=== PATIENT | female | born 1950 | race Caucasian/White ===

== ENCOUNTER 2023-06-13 09:19 | Outpatient (OUT) | payer MEDICARE, SELFPAY ==
--- NOTE | 2023-06-13 09:22 | MM_ITS ---
Patient Name: BINDU OROPEZA MR#: [id number] : 1950 Exam Date: 06/13/2023 Ordering Doctor: DR LUCIAN SY RADIOLOGY REPORT PROCEDURE: MM TOMOSYNTHESIS SCREENING BI COMPARISON: MG MAMM RICCI SCRN W CAD DIG, 12/31/2007. MG MAMM SCREEN 3D RICCI CAD, 04/02/2021. INDICATIONS: Screening Calculator Name NCI Breast Cancer Risk Assessment Tool 5 Year Breast Cancer Risk 2.20% Lifetime Breast Cancer Risk 5.60% Personal Breast Cancer No Personal Ovarian Cancer No Treatments None Family Cancers Mother with unknown/pelvis cancer at age 42. LOCATION: [facility] BREAST COMPOSITION: Scattered areas fibroglandular density. FINDINGS: DIAGNOSTIC CATEGORY 2--BENIGN FINDING. NO CHANGE FROM COMPARISON. Scattered benign-appearing calcifications are present. Scattered benign-appearing lymph nodes are present. RIGHT BREAST: No significant suspicious finding. Stable round lytic lesion with some surrounding density lower inner quadrant, mid breast. Possibly an oil cyst LEFT BREAST: No significant suspicious finding. RECOMMENDATIONS: ROUTINE MAMMOGRAM AND CLINICAL EVALUATION IN 12 MONTHS. PLEASE NOTE: A NORMAL MAMMOGRAM DOES NOT EXCLUDE THE POSSIBILITY OF BREAST CANCER. A CLINICALLY SUSPICIOUS PALPABLE LUMP SHOULD BE BIOPSIED. Dictated by: Phi Aguilar MD on 06/13/2023 at 11:07 Approved by: Phi Aguilar MD on 06/13/2023 at 11:13
== END 2023-06-13 09:20 | disposition home or self-care (01) ==
LOC: MAMMO 09:19
PROVIDERS: PCP Internal Medicine; Visit Provider Physician Assistant
DX: Z12.31 Encounter for screening mammogram for malignant neoplasm of breast (principal); Z80.8 Family history of malignant neoplasm of other organs or systems
CPT/HCPCS: 77063; 77067

== ENCOUNTER 2024-07-12 08:21 | Outpatient (OUT) | payer MEDICARE, SELFPAY ==
--- NOTE | 2024-07-12 08:23 | MM_ITS ---
Patient Name: BINDU OROPEZA MR#: [id number] : 1950 Exam Date: 07/12/2024 Ordering Doctor: DR JACQUELIN MEYER M.D. RADIOLOGY REPORT PROCEDURE: MM TOMOSYNTHESIS SCREENING BI COMPARISON: MM TOMOSYNTHESIS SCREENING BI, 06/13/2023. MG MAMM SCREEN 3D RICCI CAD, 04/02/2021. MG MAMM RICCI SCRN W CAD DIG, 12/31/2007. INDICATIONS: Screening Calculator Name NCI Breast Cancer Risk Assessment Tool 5 Year Breast Cancer Risk 2.20% Lifetime Breast Cancer Risk 5.30% Personal Breast Cancer No Personal Ovarian Cancer No Treatments None Family Cancers Mother with unknown/pelvis cancer at age 42. LOCATION: [facility] BREAST COMPOSITION: There are scattered areas of fibroglandular density. FINDINGS: DIAGNOSTIC CATEGORY 1--NEGATIVE. RIGHT BREAST: No significant suspicious finding. LEFT BREAST: No significant suspicious finding. RECOMMENDATIONS: ROUTINE MAMMOGRAM AND CLINICAL EVALUATION IN 12 MONTHS. PLEASE NOTE: A NORMAL MAMMOGRAM DOES NOT EXCLUDE THE POSSIBILITY OF BREAST CANCER. A CLINICALLY SUSPICIOUS PALPABLE LUMP SHOULD BE BIOPSIED. Dictated by: Bradley Gannon DO on 07/12/2024 at 16:22 Approved by: Bradley Gannon DO on 07/12/2024 at 16:24
--- OUTSIDE RECORDS SUMMARY | 2024-07-12 08:31 | XMS_ITS | CCD ---
Author Organization [facility] Care Team Providers Care Expediter Name Role Phone BELINDA, DR DELVIS Abrams Attending Unavailable BELINDA, DR DELVIS Abrams Admitting Unavailable BETSY, DR ROPER Primary Care Unavailable GABRIEL, VANESSA Consulting Unavailable BELINDA, DR DELVIS Abrams Attending Unavailable BELINDA, DR DELVIS Abrams Admitting Unavailable HARVEY, VANESSA Consulting Unavailable BETSY, DR ROPER Primary Care Unavailable BELINDA, DR DELVIS Abrams Admitting Unavailable BELINDA, DR DELVIS Abrams Attending Unavailable BETSY, DR ROPER Primary Care Unavailable BETSY, DR ROPER Consulting Unavailable BELINDA, DR DELVIS Abrams Consulting Unavailable LAWSON VERNON Consulting Unavailable BELINDA, DR DELVIS Abrams Attending Unavailable BELINDA, DR DELVIS Abrams Admitting Unavailable BETSY, DR ROPER Primary Care Unavailable GABRIEL, VANESSA Consulting Unavailable BELINDA, DR DELVIS Abrams Attending Unavailable GABRIEL, VANESSA Consulting Unavailable BELINDA, DR DELVIS Abrams Admitting Unavailable BETSY, DR ROPER Primary Care Unavailable BELINDA, DR DELVIS Abrams Attending Unavailable BETSY, DR ROPER Primary Care Unavailable BELINDA, DR DELVIS Abrams Admitting Unavailable GABRIEL, VANESSA Consulting Unavailable BELINDA, DR DELVIS Abrams Attending Unavailable BELINDA, DR DELVIS Abrams Admitting Unavailable BELINDA, DR DELVIS Abrams Consulting Unavailable BETSY, DR ROPER Primary Care Unavailable BELINDA, DR DELVIS Abrams Attending Unavailable BELINDA, DR DELVIS Abrams Admitting Unavailable BETSY, DR ROPER Primary Care Unavailable GABRIEL, VANESSA Consulting Unavailable BELINDA, DR DELVIS Abrams Attending Unavailable BELINDA, DR DELVIS Abrams Admitting Unavailable BETSY, DR ROPER Primary Care Unavailable BELINDA, DR DELVIS Abrams Attending Unavailable BETSY, DR ROPER Primary Care Unavailable BETSY, DR ROPER Admitting Unavailable ZIMIKI, DR GORDON Almeida Consulting Unavailable BELINDA, DR DELVIS Abrams Consulting Unavailable BELINDA, DR DELVIS Abrams Admitting Unavailable BELINDA, DR DELVIS Abrams Consulting Unavailable BELINDA, DR DELVIS Abrams Attending Unavailable BETSY, DR ROPER Primary Care Unavailable BELINDA, DR DELVIS Abrams Attending Unavailable BELINDA, DR DELVIS Abrams Admitting Unavailable BELINDA, DR DELVIS Abrams Consulting Unavailable DR CHAVO BENAVIDES Primary Care Unavailable BELINDA, DR DELVIS Abrams Admitting Unavailable BELINDA, DR DELVIS Abrams Consulting Unavailable BELINDA, DR DELVIS Abrams Attending Unavailable BETSY, DR ROPER Primary Care Unavailable Chavo Benavides MD Primary Care Provider NICOLE GONZALEZ Attending Unavailable RANI OTTO Attending Unavailable CHRISTO CHEW Attending Unavailable CHRISTO CHEW Referring Unavailable RANI OTTO Attending Unavailable RANI OTTO Attending Unavailable RANI OTTO Attending Unavailable RANI OTTO Attending Unavailable RANI OTTO Attending Unavailable CHAVO BENAVIDES Attending Unavailable CAYETANO HAJI Attending Unavailable CHAVO BENAVIDES Attending Unavailable RANI OTTO Attending Unavailable Allergies Allergy Classification Reported Allergen(s) Allergy Type Date of Onset Reaction(s) Facility (7 sources) benazepril Drug Allergy 07-01-2023 Cough [facility] Work Phone: Medications Current Medications Medication Drug Class(es) Dates Sig (Normalized) Sig (Original) [id number] 200 actuat albuterol 0.09 mg/actuat metered dose inhaler (8 sources) beta2-Adrenergic Agonist Start: 05-27-2022 take 1 puff(s) by inhalation every four hours albuterol HFA 90 mcg/act inhaler Inhale 1 puff every 4 (four) hours. 05/27/2022 Active ALPRAZolam 1 mg oral tablet (10 sources) Benzodiazepine Start: 08-12-2023 End: 03-01-2024 take 0.5 tablet by mouth in the morning ALPRAZolam (Xanax) 1 MG tablet Indications: Adjustment disorder with mixed anxiety and depressed mood (CMS/HCC) Take 0.5 tablets (0.5 mg) by mouth in the morning and 0.5 tablets (0.5 mg) before bedtime. 30 tablet 3 03/01/2024 Active Start: 10-24-2022 take 0.5 tablet by m outh in the morning ALPRAZolam (Xanax) 1 MG tablet Indications: Adjustment disorder with mixed anxiety and depressed mood (CMS/HCC) Take 0.5 tablets (0.5 mg) by mouth in the morning and 0.5 tablets (0.5 mg) before bedtime. 30 tablet 3 10/24/2022 Active amLODIPine 10 mg oral tablet (7 sources) Dihydropyridine Calcium Channel Bailey Start: 10-27-2023 End: 10-26-2024 take 1 tablet by mouth once daily amLODIPine (Norvasc) 10 MG tablet Indications: Essential hypertension (CMS/HCC) Take 1 tablet (10 mg) by mouth Daily 90 tablet 3 10/27/2023 10/26/2024 Active amLODIPine 5 mg / benazepril hydrochloride 20 mg oral capsule (1 source) Dihydropyridine Calcium Channel Bailey, Angiotensin Converting Enzyme Inhibitor take 1 capsule by mouth in the morning amLODIPine-benaze pril (Lotrel) 5-20 MG capsule Take 1 capsule by mouth in the morning. 0 Active baclofen 10 mg oral tablet (9 sources) gamma-Aminobutyric Acid-ergic Agonist Start: 12-16-2023 take 1 tablet by mouth three times daily baclofen (Lioresal) 10 MG tablet Indications: Other chronic pain TAKE 1 TABLET BY MOUTH THREE TIMES DAILY 90 tablet 2 12/16/2023 Active Start: 09-24-2022 take 1 tablet by marie three times daily baclofen (Lioresal) 10 MG tablet Indications: Other chronic pain TAKE 1 TABLET BY MOUTH THREE TIMES DAILY 90 tablet 2 10/02/2022 Active black cohosh extract 540 mg oral capsule (9 sources) Black Cohosh 540 MG capsule Take by mouth. Active Black Cohosh 80 MG capsule Daily. 0 Active Black Cohosh 540 MG capsule Take by mouth. 0 Active chlorhexidine gluconate 1.2 mg/ml mouthwash (7 sources) Start: 07-29-2023 take 15 mL by mouth in the morning chlorhexidine (Peridex) 0.12 % solution Use 15 mL in the mouth or throat in the morning and 15 mL before bedtime. 07/29/2023 Active diphenhydrAMINE hydrochloride 25 mg oral capsule (8 sources) Histamine-1 Receptor Antagonist take 1 capsule by mouth every eight hours as needed diphenhydrAMINE (Allergy) 25 MG capsule Take 25 mg by mouth every 8 (eight) hours if needed for allergies. Active DULoxetine 30 mg delayed release oral capsule (8 sources) Serotonin and Norepinephrine Reuptake Inhibitor Start: 03-08-2024 take 1 capsule by mouth once daily DULoxetine (Cymbalta) [address] capsule Indications: Adjustment disorder with mixed anxiety and depressed mood (CMS/HCC) TAKE 1 CAPSULE BY MOUTH DAILY 100 capsule 2 03/08/2024 Active Start: 06-20-2023 take 1 capsule by mo uth once daily DULoxetine (Cymbalta) [address] capsule Indications: Adjustment disorder with mixed anxiety and depressed mood (CMS/HCC) Take 1 capsule (30 mg) by mouth Daily 100 capsule 2 06/20/2023 Active take 1 capsule by mo uth in the morning DULoxetine (Cymbalta) [address] capsule Take 30 mg by mouth in the morning. 0 Active estradiol 0.1 mg/ml vaginal cream (7 sources) Estrogen Start: 06-19-2023 estradiol (Est race) 0.1 MG/GM vaginal cream Indications: Vulvovaginal Atrophy Insert 1 gram twice weekly 42.5 g 5 06/19/2023 Active gabapentin 300 mg oral capsule (8 sources) Anti-epileptic Agent Start: 12-17-2023 take 1 capsule by mouth twice daily gabapentin (Neurontin) 300 MG capsule Indications: Other chronic pain TAKE 1 CAPSULE BY MOUTH TWICE DAILY 60 capsule 5 12/17/2023 Active Start: 03-19-2023 take 1 capsule by mo uth twice daily gabapentin (Neurontin) 300 MG capsule Indications: Other chronic pain TAKE 1 CAPSULE BY MOUTH TWICE DAILY 60 capsule 5 03/19/2023 Active hydroCHLOROthiazide 12.5 mg oral tablet (10 sources) Thiazide Diuretic Start: 12-08-2023 take 1 tablet by mouth in the morning hydroCHLOROthiazide (HYDRODiuril) 12.5 MG tablet Indications: Essential hypertension (CMS/HCC) TAKE 1 TABLET BY MOUTH IN THE MORNING 100 tablet 3 12/08/2023 Active Start: 10-27-2023 End: 03-01-2024 take 1 tablet by mouth once daily in the morning hydroCHLOROthiazide (HYDRODiuril) 25 MG tablet Indications: Essential hypertension (CMS/HCC) Take 1 tablet (25 mg) by mouth Daily Take in the morning 90 tablet 3 10/27/2023 03/01/2024 Discontinued (Dose adjustment) ketoconazole 20 mg/ml medicated shampoo (1 source) Azole Antifungal Start: 04-16-2022 ketoconazole (NIZOral) 2 % shampoo Apply topically 2 (two) times a week. 0 04/16/2022 Active loperamide hydrochloride 2 mg oral capsule (8 sources) Opioid Agonist take 1 capsule by mouth four times daily as needed for diarrhea loperamide (Imodium) 2 MG capsule Take 2 mg by mouth 4 (four) times a day as needed for diarrhea. Active melatonin 10 mg oral capsule (8 sources) take 1 capsule by mouth at bedtime Melatonin 10 MG capsule Take 10 mg by mouth at bedtime. Active meloxicam 15 mg oral tablet (8 sources) Nonsteroidal Anti-inflammatory Drug Start: 06-07-2024 take 1 tablet by mouth once daily meloxicam (Mobic) 15 MG tablet Indications: Acute low back pain, unspecified back pain laterality, unspecified whether sciatica present TAKE 1 TABLET BY MOUTH DAILY 100 tablet 3 06/07/2024 Active Start: 06-18-2023 take 1 tablet by marie th once daily meloxicam (Mobic) 15 MG tablet Indications: Acute low back pain, unspecified back pain laterality, unspecified whether sciatica present TAKE 1 TABLET BY MOUTH DAILY 100 tablet 3 06/18/2023 Active take 1 tablet by marie th in the morning meloxicam (Mobic) 15 MG tablet Take 15 mg by mouth in the morning. 0 Active olmesartan medoxomil 20 mg oral tablet (7 sources) Angiotensin 2 Receptor Bailey Start: 10-27-2023 End: 10-26-2024 take 1 tablet by mouth once daily olmesartan (BENIcar) 20 MG tablet Indications: Essential hypertension (CMS/HCC) Take 1 tablet (20 mg) by mouth Daily 90 tablet 3 10/27/2023 10/26/2024 Active omeprazole 40 mg delayed release oral capsule (8 sources) Proton Pump Inhibitor Start: 10-27-2023 End: 10-26-2024 take 1 capsule by mouth before mealtime omeprazole (PriLOSEC) [address] capsule Indications: Gastro-esophageal reflux disease without esophagitis Take 1 capsule (40 mg) by mouth in the morning. Take before meals. Do not crush or chew.. 90 capsule 3 10/27/2023 10/26/2024 Active Start: 09-24-2022 omeprazole (Pr iLOSEC) [address] capsule Indications: Gastro-esophageal reflux disease without esophagitis TAKE 1 CAPSULE BY MOUTH 30 mins BEFORE morning meal 90 capsule 3 09/24/2022 Active simvastatin 40 mg oral tablet (8 sources) HMG-CoA Reductase Inhibitor Start: 12-08-2023 take 1 tablet by mouth once daily simvastatin (Zocor) 40 MG tablet Indications: Mixed hyperlipidemia (CMS/HCC) TAKE 1 TABLET BY MOUTH DAILY 100 tablet 3 12/08/2023 Active Start: 12-24-2022 take 1 tablet by marie th once daily simvastatin (Zocor) 40 MG tablet Indications: Mixed hyperlipidemia (CMS/HCC) TAKE 1 TABLET BY MOUTH ONCE DAILY 90 tablet 3 12/24/2022 Active zolpidem tartrate 10 mg oral tablet (10 sources) gamma-Aminobutyric Acid-ergic Agonist Start: 06-07-2024 zolpidem (Ambien) 10 MG tablet Indications: Insomnia, unspecified Take 1 tablet (10 mg) by mouth as needed at bedtime for sleep 30 tablet 5 06/07/2024 Active Start: 11-18-2023 End: 06-07-2024 zolpidem (Ambien) 10 MG tabl et Indications: Insomnia, unspecified Take 1 tablet (10 mg) by mouth as needed at bedtime for sleep 30 tablet 5 11/18/2023 06/07/2024 Discontinued (Reorder) Start: 10-24-2022 End: 05-22-2023 take 1 tablet by mouth at bedtime as needed zolpidem (Ambien) 10 MG tablet Indications: Insomnia, unspecified TAKE 1 TABLET BY MOUTH AT BEDTIME NEEDED 30 tablet 5 05/22/2023 Active Problems Active Problems Problem Classification Problem Date Documented Da te Episodic/Chronic Adjustment disorders (10 sources) Adjustment disorder with mixed anxiety and depressed mood; Translations: [Adjustment disorder with mixed anxiety and depressed mood] Onset: 9 09-24-2022 Chronic Anxiety disorders (8 sources) Generalized anxiety disorder; Translations: [Generalized anxiety disorder] Onset: 3 09-24-2022 Chronic Asthma (8 sources) Mixed asthma; Translations: [Unspecified asthma, uncomplicated] Onset: 3 09-24-2022 Chronic Disorders of lipid metabolism (10 sources) Mixed hyperlipidemia; Translations: [Mixed hyperlipidemia] Onset: 3 09-24-2022 Chronic Esophageal disorders (8 sources) Gastroesophageal reflux disease without esophagitis; Translations: [Gastro-esophageal reflux disease without esophagitis] Onset: 3 09-24-2022 Chronic Essential hypertension (10 sources) Essential hypertension; Translations: [Essential (primary) hypertension] Onset: 3 09-24-2022 Chronic Osteoarthritis (13 sources) Osteoarthritis of joint of left elbow; Translations: [Primary osteoarthritis, left elbow] Onset: 3 09-24-2022 Chronic Other acquired deformities (5 sources) Scoliosis, unspecified; Translations: [SCOLIOSIS UNSPECIFIED] Onset: 2 Chronic Other acquired deformities (8 sources) Contracture of joint of right ankle; Translations: [Contracture, right ankle] Onset: 3 09-24-2022 Chronic Other acquired deformities (8 sources) Scoliosis deformity of spine; Translations: [Scoliosis, unspecified] Onset: 3 09-24-2022 Chronic Other eye disorders (4 sources) Lower eyelid ectropion; Translations: [Unspecified ectropion of right lower eyelid] 03-01-2024 Episodic Other gastrointestinal disorders (8 sources) Irritable bowel syndrome with diarrhea; Translations: [Irritable bowel syndrome with diarrhea] Onset: 3 09-24-2022 Chronic Other hereditary and degenerative nervous system conditions (8 sources) Restless legs; Translations: [Restless legs syndrome] Onset: 3 09-24-2022 Chronic Other inflammatory condition of skin (8 sources) Psoriasis vulgaris; Translations: [Psoriasis vulgaris] Onset: 3 09-24-2022 Chronic Other nervous system disorders (1 source) Chronic pain syndrome; Translations: [CHRONIC PAIN SYNDROME] Onset: 2 Chronic Other nervous system disorders (1 source) Other chronic pain; Translations: [OTHER CHRONIC PAIN] Onset: 2 Chronic Other nervous system disorders (8 sources) Difficulty walking; Translations: [Difficulty in walking, not elsewhere classified] Onset: 3 09-24-2022 Chronic Other nervous system disorders (8 sources) Chronic pain; Translations: [Other chronic pain] Onset: 3 09-24-2022 Chronic Other nervous system disorders (8 sources) Carpal tunnel syndrome; Translations: [Carpal tunnel syndrome, unspecified upper limb] Onset: 3 09-24-2022 Chronic Other non-traumatic joint disorders (2 sources) Pain in left knee; Translations: [Pain in joint, lower leg] 03-23-2024 Episodic Residual codes; unclassified (10 sources) Insomnia; Translations: [Insomnia, unspecified] Onset: 3 05-22-2023 Episodic Spondylosis; intervertebral disc disorders; other back problems (20 sources) Sacroiliitis, not elsewhere classified; Translations: [Other spondylosis with radiculopathy, lumbar region] Onset: 2 Chronic Unclassified (4 sources) LOW BACK PAIN, UNSPECIFIED; Translations: [LOW BACK PAIN, UNSPECIFIED] Onset: 2 Unclassified (1 source) CONTACT W/AND (SUSP) EXPOS COVID-19; Translations: [CONTACT W/AND (SUSP) EXPOS COVID-19] Onset: 2 Past or Other Problems Problem Classification Problem Date Documented Da te Episodic/Chronic Inflammatory diseases of female pelvic organs (8 sources) Chronic vaginitis; Translations: [Subacute and chronic vaginitis] Onset: 09-24-2022 09-24-2022 Episodic Other bone disease and musculoskeletal deformities (8 sources) Osteopenia; Translations: [Other specified disorders of bone density and structure, unspecified site] Onset: 09-24-2022 09-24-2022 Episodic Other connective tissue disease (1 source) Other muscle spasm; Translations: [OTHER MUSCLE SPASM] Onset: 07-24-2021 Episodic Other connective tissue disease (8 sources) Triggering of digit; Translations: [Trigger finger, left ring finger] Onset: 09-24-2022 09-24-2022 Episodic Other nervous system disorders (8 sources) Paresthesia; Translations: [Paresthesia of skin] Onset: 09-24-2022 09-24-2022 Episodic Other nutritional; endocrine; and metabolic disorders (8 sources) Body mass index 30+ - obesity; Translations: [Obesity, unspecified] Onset: 09-24-2022 Resolved: 10-24-2022 10-24-2022 Chronic Other screening for suspected conditions (not mental disorders or infectious disease) (8 sources) Mammography abnormal; Translations: [Other abnormal and inconclusive findings on diagnostic imaging of breast] Onset: 09-24-2022 09-24-2022 Episodic Other skin disorders (8 sources) Multiple actinic keratoses; Translations: [Actinic keratosis] Onset: 09-24-2022 09-24-2022 Episodic Residual codes; unclassified (1 source) Other specified postprocedural states; Translations: [OTH SPECIFIED POSTPROCEDURAL STATES] Onset: 06-13-2021 Episodic Spondylosis; intervertebral disc disorders; other back problems (20 sources) Muscle spasm of back; Translations: [Sacrococcygeal disorders, not elsewhere classified] Onset: 06-12-2021 Episodic Unclassified (1 source) LOW BACK PAIN, UNSPECIFIED; Translations: [LOW BACK PAIN, UNSPECIFIED] Onset: 03-28-2022 Viral infection (8 sources) Recurrent herpes simplex labialis; Translations: [Herpesviral vesicular dermatitis] Onset: 09-24-2022 09-24-2022 Episodic Results Test Name Value Interpretation Reference Range Facil ity Covid-19 PCR ([facility])on 10-13 SARS-CoV-2 (COVID-19) RNA SHERYL+probe Ql (Unsp spec) Not detected Normal NOT DETECTED [facility] Comment on above: Result Comment: This test is not yet andrew roved or cleared by the [place] FDA. When there are no FDA-approved or cleared tests available, and other criteria are met, FDA can make tests available under an emergency access mechanism called an Emergency Use Authorization (EUA). The EUA for this test is supported by the [employer] Inspector of Health and Human Service's (HHS's) declaration that circumstances exist to justify the emergency use of in vitro diagnostics for the detection and/or diagnosis of the virus that causes COVID-19. This EUA will remain in effect (meaning this test can be used) for the duration of the COVID-19 declaration justifying emergency of IVDs, unless it is terminated or revoked by FDA (after which the test may no longer be used). When diagnostic testing is negative, the possibility of a false negative should be considered in the context of a patient's recent exposures and the presence of clinical signs and symptoms consistent with SARS-CoV-2. Performed By: #### C [facility] #### [facility] [address] [place] [address] Dr. Hubert Jean XR LSPINE W_OBLS AND FLEX_EX Ton 06-12-2021 XR LSPINE W_OBLS AND FLEX_EXT EXAMINATION: XR LSPINE W_OBLS AND FLEX_EXT HISTORY: Spinal stenosis of lumbar region COMPARISON: XR lumbar spine 05/20/2018 FINDINGS: BONES: Marked scoliotic curvature of the lumbar spine with multilevel grade 1-2 lateral listhesis. No appreciable compression fracture. Multilevel marked degenerative facet arthropathy. DISC SPACES: Marked degenerative disc disease at all lumbar levels. PARASPINOUS: Negative. No paraspinous abnormality is seen. OTHER: Negative. IMPRESSION: 1. Marked scoliosis and multilevel marked degenerative changes of the lumbar spine; slightly progressed. No appreciable acute abnormality.. Electronically authenticated by: GORDON GUTIERREZ Date: 2021-06-12 15:26 Normal [facility] Vital Signs Date Time Vital Sign Value Performing Clinician Faci lity 03-23-2024 13:40-0500 Body height 162.6 cm Rani Hemmer PA Work Phone: [facility] 03-23-2024 13:40-0500 Body mass index (BMI) [Ratio] 27.46 kg/m2 Rani Hemmer PA Work Phone: [facility] 03-23-2024 13:40-0500 Body weight 72.58 kg Rani Hemmer PA Work Phone: [facility] 03-23-2024 13:40-0500 Diastolic blood pressure 74 mm[Hg] Rani Hemmer PA Work Phone: [facility] 03-23-2024 13:40-0500 Heart rate 75 /min Rani Hemmer PA Work Phone: [facility] 03-23-2024 13:40-0500 Respiratory rate 16 /min Rani Hemmer PA Work Phone: [facility] 03-23-2024 13:40-0500 SaO2% (BldA) [Mass fraction] 98 % Rani Hemmer PA Work Phone: [facility] 03-23-2024 13:40-0500 Systolic blood pressure 136 mm[Hg] Rani Hemmer PA Work Phone: [facility] 03-01-2024 11:07-0500 Body height 162.6 cm Chavo Benavides MD Work Phone: [facility] 03-01-2024 11:07-0500 Body mass index (BMI) [Ratio] 27.64 kg/m2 Chavo Benavides MD Work Phone: [facility] 03-01-2024 11:07-0500 Body weight 73.03 kg Chavo Benavides MD Work Phone: [facility] 03-01-2024 11:07-0500 Diastolic blood pressure 84 mm[Hg] Chavo Benavides MD Work Phone: [facility] 03-01-2024 11:07-0500 Heart rate 86 /min Chavo Benavides MD Work Phone: [facility] 03-01-2024 11:07-0500 SaO2% (BldA) [Mass fraction] 96 % Chavo Benavides MD Work Phone: [facility] 03-01-2024 11:07-0500 Systolic blood pressure 132 mm[Hg] Chavo Benavides MD Work Phone: [facility] Encounters Encounter Date Encounter Type Care Provider Facility Start: 06-07-2024 End: 06-07-2024 Refill Chavo Benavides MD Work Phone: [facility] Comment on above: Insomnia, unspecifie d Start: 03-23-2024 End: 03-23-2024 Bamboo flowsheet Rani Otto PA Work Phone: [facility] Start: 03-23-2024 End: 03-23-2024 Bamboo flowsheet Rani SY Work Phone: [facility] Start: 03-23-2024 End: 03-23-2024 Office outpatient visit 15 minutes Rani SY Work Phone: [facility] Comment on above: Primary 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 (Primary Dx); Acute pain of left knee Start: 03-23-2024 End: 03-23-2024 ambulatory RANI M HEMMER Not Available Start: 03-01-2024 End: 03-01-2024 Bamboo flowsheet Chavo Benavides MD Work Phone: [facility] Start: 03-01-2024 End: 03-01-2024 Bamboo flowsheet Chavo Benavides MD Work Phone: [facility] Start: 03-01-2024 End: 03-01-2024 Office outpatient visit 25 minutes Chavo Benavides MD Work Phone: [facility] Comment on above: Ectropion of both lo wer eyelids, unspecified ectropion type (Primary Dx); Adjustment disorder with mixed anxiety and depressed mood (CMS/HCC); Essential hypertension (CMS/HCC); Mixed hyperlipidemia (CMS/HCC) Start: 03-01-2024 End: 03-01-2024 ambulatory CHAVO BENAVIDES Not Available Start: 11-01-2023 End: 11-03-2023 ambulatory CAYETANO HAJI Not Available Start: 10-27-2023 End: 10-27-2023 ambulatory CHAVO BENAVIDES Not Available Start: 09-09-2023 End: 09-09-2023 ambulatory RANI M HEMMER Not Available Start: 08-12-2023 End: 08-12-2023 ambulatory RANI M HEMMER Not Available Start: 07-08-2023 End: 07-08-2023 ambulatory RANI M HEMMER Not Available Start: 07-01-2023 End: 07-01-2023 ambulatory RANI M HEMMER Not Available Start: 06-27-2023 End: 06-27-2023 ambulatory RANI M HEMMER Not Available Start: 06-19-2023 End: 06-19-2023 ambulatory CHRISTO CHEW Not Available Start: 06-06-2023 End: 06-06-2023 ambulatory RANI M HEMMER Not Available Start: 05-22-2023 Refill Chavo Benavides MD Work Phone: [facility] Comment on above: Insomnia, unspecifie d Start: 04-10-2023 End: 04-10-2023 ambulatory NICOLE GONZALEZ Not Available Start: 06-27-[address] DELVIS DEGROOT Facili ty:[facility] Start: 03-28-2022 End: 03-29-[address] DELVIS DEGROOT Facility:[facility] Start: 12-13-2021 End: 12-14-[address] DELVIS DEGROOT Facility:[facility] Start: 11-15-2021 Encounter for preprocedural laboratory examination DR DELVIS DEGROOT [facility] Start: 11-13-2021 End: 11-13-[address] DELVIS DEGROOT Facility:[facility] Start: 11-09-2021 End: 11-10-[address] DELVIS DEGROOT Facility:[facility] Start: 11-09-2021 End: 11-10-2021 Encounter for preprocedural laboratory examination DR DELVIS DEGROOT Facility:[facility] Start: 10-11-2021 End: 10-12-[address] DELVIS DEGROOT Facility:[facility] Start: 09-18-2021 End: 09-18-[address] DELVIS DEGROOT Facility:[facility] Start: 08-30-2021 End: 08-31-[address] DELVIS DEGROOT Facility:[facility] Start: 08-14-2021 End: 08-14-[address] DELVIS DEGROOT Facility:[facility] Start: 07-19-2021 End: 07-20-[address] DELVIS DEGROOT Facility:[facility] Start: 06-14-2021 End: 06-21-[address] DELVIS DEGROOT Facility:[facility] Start: 06-12-2021 End: 06-13-[address] DELVIS DEGROOT Facility:[facility] Start: 06-12-2021 End: 06-13-[address] DELVIS DEGROOT Facility:[facility] Procedures Date Procedure Procedure Detail Performing Clinician Start: 06-13-2023 Mammography Chavo davis MD Work Phone: Start: 09-24-2022 H/O: hysterectomy History of hystere ctomy Chavo Benavides MD Work Phone: Start: 07-11-2022 Colonoscopy Chavo davis MD Work Phone: Start: 04-02-2021 Mammography Chavo davis MD Work Phone: Plan of Treatment Date Care Activity Detail Author Start: 07-11-2032 Screening for malign ant neoplasm of colon [facility] Start: 10-26-2024 Medicare Annual Well ness (AWV) Medicare Annual Wellness (AWV) [facility] Start: 08-30-2024 End: 08-30-2024 Patient encounter procedure 08/30/2024 10:30 AM EDT Office Visit [facility] [address] [place] [address] Chvao Benavides MD [address] [place] [address] [facility] Start: 06-12-2024 Screening for malign ant neoplasm of breast Mammogram [facility] Start: 03-23-2024 End: 03-23-2024 Patient encounter procedure 03/23/2024 1:30 PM EST Office Visit [facility] [address] [place] [address] Rani Otto PA [address] [place] [address] Arrived [facility] Comment on above: Arrived Start: 10-25-2023 Medicare Annual Well ness (AWV) Medicare Annual Wellness (AWV) [facility] Start: 06-19-2023 End: 06-19-2023 Patient encounter procedure 06/19/2023 10:15 AM EST Office Visit [facility] [address] [facility] [address] [place] [address] Christo Chew MD [address] [place] [address] [facility] Start: 04-02-2022 Screening for malign ant neoplasm of breast Mammogram [facility] Start: 1950 Screening for malign ant neoplasm of colon [facility] Immunizations Immunization Date Immunization Notes Care Provider Fa cility 01-18-2023 Influenza, High-dose Seasonal, Quadrivalent, Preservative Free Chavo Benavides MD Work Phone: [facility] Work Phone: 01-28-2022 Influenza, High-dose Seasonal, Quadrivalent, Preservative Free Chavo Benavides MD Work Phone: [facility] 01-30-2021 Influenza, High-dose Seasonal, Quadrivalent, Preservative Free Chavo Benavides MD Work Phone: [facility] 02-14-2020 influenza, injectabl e, quadrivalent, preservative free Chavo Benavides MD Work Phone: [facility] 01-26-2020 influenza, seasonal, injectable Chavo Benavides MD Work Phone: [facility] 01-01-2020 Influenza, High-dose Seasonal, Quadrivalent, Preservative Free Chavo Benavides MD Work Phone: [facility] 10-18-2019 pneumococcal polysaccharide vaccine, 23 valent Chavo Benavides MD Work Phone: [facility] 02-05-2019 Seasonal, quadrivale nt, recombinant, injectable influenza vaccine, preservative free Chavo Benavides MD Work Phone: [facility] 01-26-2018 Influenza, High-dose Seasonal, Quadrivalent, Preservative Free Chavo Benavides MD Work Phone: [facility] 01-31-2017 Influenza, High-dose Seasonal, Quadrivalent, Preservative Free Chavo Benavides MD Work Phone: [facility] 06-18-2016 influenza, injectabl e, quadrivalent, preservative free Chavo Benavides MD Work Phone: [facility] 01-25-2016 influenza, injectabl e, quadrivalent, preservative free Chavo Benavides MD Work Phone: [facility] 12-19-2015 zoster vaccine, live Chavo Benavides MD Work Phone: [facility] 09-14-2015 pneumococcal conjuga te vaccine, 13 valent Chavo Benavides MD Work Phone: [facility] Payers Date Payer Category Payer Medicare [employer] [address] [id number] 2023-Present [address] [place] [address] [id number] 2022 Medicare (Managed Care) [employer] [id number] 2022 Medicare [id number] 1959 Unknown [id number] 1950 Unknown [id number] 2.16.840.1.519060.3.579.2. 593 1950 Unknown [id number] 2.16.840.1.706814.3.579.2. 593 1950 Unknown [id number] 2.16.840.1.523072.3.579.2. 593 1950 Unknown [id number] 2.16.840.1.049098.3.579.2. 593 1950 Unknown [id number] 2.16.840.1.141452.3.579.2. 593 1950 Unknown [id number] 2.16.840.1.923453.3.579.2. 593 1950 Unknown [id number] 2.16.840.1.703029.3.579.2. 593 1950 Unknown [id number] 2.16.840.1.810692.3.579.2. 593 1950 Unknown [id number] 2.16.840.1.094650.3.579.2. 593 1950 Unknown [id number] 2.16.840.1.785414.3.579.2. 593 1950 Unknown [id number] 2.16.840.1.715005.3.579.2. 59 1950 Unknown [id number] 2.16.840.1.534085.3.579.2. 59 1950 Unknown [id number] 2.16.840.1.606176.3.579.2. 59 1950 Unknown [id number] 2.16.840.1.326384.3.579.2. 125 1950 Unknown [id number] 2.16.840.1.043733.3.579.2. 1258 1950 Unknown [id number] 2.16.840.1.575509.3.579.2. 1258 1950 Unknown [id number] 2.16.840.1.511159.3.579.2. 1258 1950 Unknown [id number] 2.16.840.1.727312.3.579.2. 1258 1950 Unknown [id number] 2.16.840.1.307472.3.579.2. 1258 1950 Unknown [id number] 2.16.840.1.527863.3.579.2. 1258 1950 Unknown [id number] 2.16.840.1.366606.3.579.2. 1258 1950 Unknown [id number] 2.16.840.1.176436.3.579.2. 1258 1950 Unknown [id number] 2.16.840.1.210136.3.579.2. 1258 1950 Unknown [id number] 2.16.840.1.697975.3.579.2. 1258 1950 Unknown [id number] 2.16.840.1.391180.3.579.2. 1259 Social History Date Type Detail Facility Start: 12-12-2022 Tobacco smoking status NHIS Never sm oked tobacco [facility] Start: 12-12-2022 Tobacco use and exposure Smoke less tobacco non-user [facility] Start: 04-10-2023 End: 03-23-2024 Alcohol intake Current drinker of alcohol (finding) [facility] Start: 04-10-2023 End: 10-27-2023 Alcohol intake [facility] Start: 01-30-2023 End: 10-27-2023 Alcohol Use Disorder Identification Test - Consumption [AUDIT-C] [facility] How often to you hav e a drink containing alcohol? Monthly or less [facility] How many standard dr inks containing alcohol do you have on a typical day? 1 or 2 [facility] How often do you hav e 6 or more drinks on 1 occasion? Less than monthly [facility] Start: 12-09-2022 Alcohol Comment Caffeine intak e: 3-4 cups per day coffee, tea [facility] Start: 1950 Sex Assigned At Not on file [facility] Clinical Notes 06-12-2021 to 03-23-2024 YOSSI Matos - 03/23/2024 1:30 PM Jia Benavides MD - 03/01/2024 11:15 AM EST Note Date & Type Note Facility 03-23-2024 History of Present illness Narrative Images from the original note were not included. Subjective Patient ID: Vivienne Serrano is a 73 y.o. female who presents for knee swelling. Vivienne is present today for evaluation of knee swelling. Admits left knee swelling for about a year. States Friday and Friday it was really swollen but today the swelling is not too bad, painful off/on mostly on the outside of the knee. She used Voltaren gel on it Friday and it has helped. The knee has improved since Friday and was not sure if she should have kept the appt for today. States on Friday it felt like it was going to give out on her, but has not done so since. Current Outpatient Medications on File Prior to Visit Medication Sig Dispense Refill albuterol HFA 90 mcg/act inhaler Inhale 1 puff every 4 (four) hours. ALPRAZolam (Xanax) 1 MG tablet Take 0.5 tablets (0.5 mg) by mouth in the morning and 0.5 tablets (0.5 mg) before bedtime. 30 tablet 3 amLODIPine (Norvasc) 10 MG tablet Take 1 tablet (10 mg) by mouth Daily 90 tablet 3 baclofen (Lioresal) 10 MG tablet TAKE 1 TABLET BY MOUTH THREE TIMES DAILY 90 tablet 2 Black Cohosh 540 MG capsule Take by mouth. chlorhexidine (Peridex) 0.12 % solution Use 15 mL in the mouth or throat in the morning and 15 mL before bedtime. diphenhydrAMINE (Allergy) 25 MG capsule Take 25 mg by mouth every 8 (eight) hours if needed for allergies. DULoxetine (Cymbalta) [address] capsule TAKE 1 CAPSULE BY MOUTH DAILY 100 capsule 2 estradiol (Estrace) 0.1 MG/GM vaginal cream Insert 1 gram twice weekly 42.5 g 5 gabapentin (Neurontin) 300 MG capsule TAKE 1 CAPSULE BY MOUTH TWICE DAILY 60 capsule 5 hydroCHLOROthiazide (HYDRODiuril) 12.5 MG tablet TAKE 1 TABLET BY MOUTH IN THE MORNING 100 tablet 3 loperamide (Imodium) 2 MG capsule Take 2 mg by mouth 4 (four) times a day as needed for diarrhea. Melatonin 10 MG capsule Take 10 mg by mouth at bedtime. meloxicam (Mobic) 15 MG tablet TAKE 1 TABLET BY MOUTH DAILY 100 tablet 3 olmesartan (BENIcar) 20 MG tablet Take 1 tablet (20 mg) by mouth Daily 90 tablet 3 omeprazole (PriLOSEC) [address] capsule Take 1 capsule (40 mg) by mouth in the morning. Take before meals. Do not crush or chew.. 90 capsule 3 simvastatin (Zocor) 40 MG tablet TAKE 1 TABLET BY MOUTH DAILY 100 tablet 3 zolpidem (Ambien) 10 MG tablet Take 1 tablet (10 mg) by mouth as needed at bedtime for sleep 30 tablet 5 No current facility-administered medications on file prior to visit. I have reviewed and reconciled the history and medication list with the patient today. Allergies Allergen Reactions Benazepril Cough Social History Tobacco Use Smoking status: Never Smokeless tobacco: Never Vaping Use Vaping status: Never Used Substance Use Topics Alcohol use: Yes Alcohol/week: 2.0 standard drinks of alcohol Types: 2 Standard drinks or equivalent per week Comment: Caffeine intake: 3-4 cups per day coffee, tea Drug use: Never Family History Problem Relation Name Age of Onset Cancer Mother Irritable bowel syndrome Mother Melanoma Neg Hx Past Medical History: Diagnosis Date Abnormal uterine bleeding Uterine Fibroid/Lt Adnexal Mass/Poss Endometriosis COVID-19 02/05/2020 Depression (CMS/HCC) Grief reaction (CMS/HCC) History of being hospitalized 02/23/2017 ETOH Intoxication w/ Inability to Ambulate Hypertension (CMS/HCC) Inflammatory bowel disease 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 Past Surgical History: Procedure Laterality Date APPENDECTOMY BREAST LUMPECTOMY Right 03/03/2020 with needle localization-Wiecek (Benign) BREAST LUMPECTOMY W/ NEEDLE LOCALIZATION Right 2019 benign COLONOSCOPY 11/01/13,07/11/2022 HYSTERECTOMY JOINT ASPIRATION/INJECTION Right 08/14/2021,09/18/2021 LUMBAR TRANSFORAMINAL EPIDURAL STEROID INJECTION 2018 Lumbar YOHANA's LUMBAR TRANSFORAMINAL EPIDURAL STEROID INJECTION 09/29/2018 Rt L3-L4 YOHANA's NERVE BLOCK Bilateral L2-L5 12/22/18 and 11/17/18 OTHER SURGICAL HISTORY 01/26/2019 Right L2-L5 RFA OTHER SURGICAL HISTORY 02/02/2019 Left L2-L5 RFA PELVIC LAPAROSCOPY 1994 Hystorectomy, Bilat S and O, Appendectomy;Disease:Abnml Uterine Bleeding/Uterine Fibroid/Lt Adnexal Mass/Poss Endometriosis Visit Vitals BP 136/74 Pulse 75 Resp 16 Ht 5' 4 Wt 160 lb LMP (LMP Unknown) SpO2 98% BMI 27.46 kg/m OB Status Hysterectomy Smoking Status Never BSA 1.81 m Review of Systems Constitutional: Negative for chills, fatigue and fever. Respiratory: Negative for cough, shortness of breath and wheezing. Cardiovascular: Negative for chest pain, palpitations and leg swelling. Gastrointestinal: Negative for abdominal pain, constipation, diarrhea, nausea and vomiting. Musculoskeletal: Positive for arthralgias and joint swelling. Skin: Negative for rash. Objective Physical Exam Constitutional: General: She is not in acute distress. Appearance: Normal appearance. She is well-developed. HENT: Head: Normocephalic and atraumatic. Eyes: General: No scleral icterus. Conjunctiva/sclera: Conjunctivae normal. Cardiovascular: Rate and Rhythm: Normal rate and regular rhythm. Heart sounds: Normal heart sounds. No murmur heard. Pulmonary: Effort: Pulmonary effort is normal. No respiratory distress. Breath sounds: Normal breath sounds. No wheezing, rhonchi or rales. Musculoskeletal: Left knee: Effusion (Mild) and crepitus (Moderate) present. Normal range of motion. Tenderness present over the lateral joint line (Anterolateral aspect of joint). No LCL laxity or MCL laxity.Normal patellar mobility. Instability Tests: Anterior drawer test negative. Posterior drawer test negative. Medial Trang test negative and lateral Trang test negative. Skin: General: Skin is warm and dry. Neurological: General: No focal deficit present. Mental Status: She is alert and oriented to person, place, and time. Motor: No weakness. Gait: Gait normal. Psychiatric: Mood and Affect: Mood normal. Behavior: Behavior normal. Assessment/Plan Diagnoses and all orders for this visit: Primary osteoarthritis of left knee Offered x-rays, pt declines as pain has improved. Encouraged pt to reach out to the office should she wish to have x-rays done. Reviewed treatment plan for OA. Voltaren Gel as needed. Can try steroid taper or steroid injection in the future if needed. Acute pain of left knee Encouraged pt to use the Voltaren Gel routinely for the next few days to make sure the current flare resolves. Follow up for Appointment As Scheduled. documented in this encounter [facility] 03-01-2024 History of Present illness Narrative Images from the original note were not included. HPI Results Additional comments: Lab results 10/2023 Med Refill Additional comments: Xanax--kiana mejia Last edited by Trisha Burgess LPN on 03/01/2024 11:10 AM. Subjective Patient ID: Vivienne Serrano is a 73 y.o. female who presents for Hypertension, Results (Lab results 10/2023), and Med Refill (Xanax--kiana mejia). Would like to discuss the puffiness under her eyes states it has been there for years Hypertension Patient is here for follow-up of elevated blood pressure. Blood pressure is well controlled at home. Cardiac symptoms: none. Patient denies chest pain, claudication, fatigue, irregular heart beat, near-syncope, orthopnea, palpitations, and paroxysmal nocturnal dyspnea. Would like to discuss the puffiness under her eyes states it has been there for years Hypertension Med Refill Current Outpatient Medications on File Prior to Visit Medication Sig Dispense Refill albuterol HFA 90 mcg/act inhaler Inhale 1 puff every 4 (four) hours. amLODIPine (Norvasc) 10 MG tablet Take 1 tablet (10 mg) by mouth Daily 90 tablet 3 baclofen (Lioresal) 10 MG tablet TAKE 1 TABLET BY MOUTH THREE TIMES DAILY 90 tablet 2 Black Cohosh 540 MG capsule Take by mouth. chlorhexidine (Peridex) 0.12 % solution Use 15 mL in the mouth or throat in the morning and 15 mL before bedtime. diphenhydrAMINE (Allergy) 25 MG capsule Take 25 mg by mouth every 8 (eight) hours if needed for allergies. DULoxetine (Cymbalta) [address] capsule Take 1 capsule (30 mg) by mouth Daily 100 capsule 2 estradiol (Estrace) 0.1 MG/GM vaginal cream Insert 1 gram twice weekly 42.5 g 5 gabapentin (Neurontin) 300 MG capsule TAKE 1 CAPSULE BY MOUTH TWICE DAILY 60 capsule 5 hydroCHLOROthiazide (HYDRODiuril) 12.5 MG tablet TAKE 1 TABLET BY MOUTH IN THE MORNING 100 tablet 3 loperamide (Imodium) 2 MG capsule Take 2 mg by mouth 4 (four) times a day as needed for diarrhea. Melatonin 10 MG capsule Take 10 mg by mouth at bedtime. meloxicam (Mobic) 15 MG tablet TAKE 1 TABLET BY MOUTH DAILY 100 tablet 3 olmesartan (BENIcar) 20 MG tablet Take 1 tablet (20 mg) by mouth Daily 90 tablet 3 omeprazole (PriLOSEC) [address] capsule Take 1 capsule (40 mg) by mouth in the morning. Take before meals. Do not crush or chew.. 90 capsule 3 simvastatin (Zocor) 40 MG tablet TAKE 1 TABLET BY MOUTH DAILY 100 tablet 3 zolpidem (Ambien) 10 MG tablet Take 1 tablet (10 mg) by mouth as needed at bedtime for sleep 30 tablet 5 [DISCONTINUED] ALPRAZolam (Xanax) 1 MG tablet Take 0.5 tablets (0.5 mg) by mouth in the morning and 0.5 tablets (0.5 mg) before bedtime. 30 tablet 0 [DISCONTINUED] hydroCHLOROthiazide (HYDRODiuril) 25 MG tablet Take 1 tablet (25 mg) by mouth Daily Take in the morning 90 tablet 3 No current facility-administered medications on file prior to visit. I have reviewed and reconciled the history and medication list with the patient today. Allergies Allergen Reactions Benazepril Cough Social History Tobacco Use Smoking status: Never Smokeless tobacco: Never Vaping Use Vaping status: Never Used Substance Use Topics Alcohol use: Yes Alcohol/week: 2.0 standard drinks of alcohol Types: 2 Standard drinks or equivalent per week Comment: Caffeine intake: 3-4 cups per day coffee, tea Drug use: Never Family History Problem Relation Name Age of Onset Cancer Mother Irritable bowel syndrome Mother Melanoma Neg Hx Past Medical History: Diagnosis Date Abnormal uterine bleeding Uterine Fibroid/Lt Adnexal Mass/Poss Endometriosis COVID-19 02/05/2020 Depression (CMS/HCC) Grief reaction (CMS/HCC) History of being hospitalized 02/23/2017 ETOH Intoxication w/ Inability to Ambulate Hypertension (CMS/HCC) Inflammatory bowel disease 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 Past Surgical History: Procedure Laterality Date APPENDECTOMY BREAST LUMPECTOMY Right 03/03/2020 with needle localization-Wiecek (Benign) BREAST LUMPECTOMY W/ NEEDLE LOCALIZATION Right 2019 benign COLONOSCOPY 11/01/13,07/11/2022 HYSTERECTOMY JOINT ASPIRATION/INJECTION Right 08/14/2021,09/18/2021 LUMBAR TRANSFORAMINAL EPIDURAL STEROID INJECTION 2018 Lumbar YOHANA's LUMBAR TRANSFORAMINAL EPIDURAL STEROID INJECTION 09/29/2018 Rt L3-L4 YOHANA's NERVE BLOCK Bilateral L2-L5 12/22/18 and 11/17/18 OTHER SURGICAL HISTORY 01/26/2019 Right L2-L5 RFA OTHER SURGICAL HISTORY 02/02/2019 Left L2-L5 RFA PELVIC LAPAROSCOPY 1994 Hystorectomy, Bilat S and O, Appendectomy;Disease:Abnml Uterine Bleeding/Uterine Fibroid/Lt Adnexal Mass/Poss Endometriosis Visit Vitals BP 132/84 Pulse 86 Ht 5' 4 Wt 161 lb LMP (LMP Unknown) SpO2 96% BMI 27.64 kg/m OB Status Hysterectomy Smoking Status Never BSA 1.82 m Review of Systems Eyes: Positive for discharge. Respiratory: Negative. Cardiovascular: Negative. Gastrointestinal: Negative. Objective Physical Exam Constitutional: General: She is not in acute distress. Appearance: Normal appearance. She is well-developed. HENT: Head: Normocephalic and atraumatic. Eyes: General: Lids are everted, no foreign bodies appreciated. No scleral icterus. Conjunctiva/sclera: Conjunctivae normal. Cardiovascular: Rate and Rhythm: Normal rate and regular rhythm. Heart sounds: Normal heart sounds. No murmur heard. Pulmonary: Effort: Pulmonary effort is normal. No respiratory distress. Breath sounds: Normal breath sounds. No wheezing, rhonchi or rales. Skin: General: Skin is warm and dry. Neurological: General: No focal deficit present. Mental Status: She is alert and oriented to person, place, and time. Psychiatric: Mood and Affect: Mood normal. Behavior: Behavior normal. Office Visit on 10/27/2023 Component Date Value Ref Range Status WHITE BLOOD CELL COUNT 11/05/2023 5.7 3.8 - 10.8 Thousand/uL Final RED BLOOD CELL COUNT 11/05/2023 4.76 3.80 - 5.10 Million/uL Final HEMOGLOBIN 11/05/2023 14.8 11.7 - 15.5 g/dL Final HEMATOCRIT 11/05/2023 43.9 35.0 - 45.0 % Final MCV 11/05/2023 92.2 80.0 - 100.0 fL Final MCH 11/05/2023 31.1 27.0 - 33.0 pg Final MCHC 11/05/2023 33.7 32.0 - 36.0 g/dL Final RDW 11/05/2023 13.1 11.0 - 15.0 % Final PLATELET COUNT 11/05/2023 313 140 - 400 Thousand/uL Final MPV 11/05/2023 9.7 7.5 - 12.5 fL Final ABSOLUTE NEUTROPHILS 11/05/2023 3,528 1,500 - 7,800 cells/uL Final ABSOLUTE LYMPHOCYTES 11/05/2023 1,642 850 - 3,900 cells/uL Final ABSOLUTE MONOCYTES 11/05/2023 422 200 - 950 cells/uL Final ABSOLUTE EOSINOPHILS 11/05/2023 80 15 - 500 cells/uL Final ABSOLUTE BASOPHILS 11/05/2023 29 0 - 200 cells/uL Final NEUTROPHILS 11/05/2023 61.9 % Final LYMPHOCYTES 11/05/2023 28.8 % Final MONOCYTES 11/05/2023 7.4 % Final EOSINOPHILS 11/05/2023 1.4 % Final BASOPHILS 11/05/2023 0.5 % Final Glucose 11/05/2023 98 65 - 99 mg/dL Final Comment: Fasting reference interval BUN 11/05/2023 18 7 - 25 mg/dL Final Creatinine 11/05/2023 0.81 0.60 - 1.00 mg/dL Final EGFR 11/05/2023 77 > OR = 60 mL/min/1.73m2 Final BUN/CREATININE RATIO 11/05/2023 SEE NOTE: (calc) Final Comment: Not Reported: BUN and Creatinine are within reference range. Sodium 11/05/2023 139 135 - 146 mmol/L Final Potassium, Bld 11/05/2023 4.4 3.5 - 5.3 mmol/L Final Chloride 11/05/2023 104 98 - 110 mmol/L Final Carbon Dioxide 11/05/2023 24 20 - 32 mmol/L Final Calcium 11/05/2023 9.8 8.6 - 10.4 mg/dL Final PROTEIN, TOTAL 11/05/2023 7.1 6.1 - 8.1 g/dL Final ALBUMIN 11/05/2023 4.6 3.6 - 5.1 g/dL Final GLOBULIN 11/05/2023 2.5 1.9 - 3.7 g/dL (calc) Final ALBUMIN/GLOBULIN RATIO 11/05/2023 1.8 1.0 - 2.5 (calc) Final BILIRUBIN, TOTAL 11/05/2023 1.0 0.2 - 1.2 mg/dL Final ALKALINE PHOSPHATASE 11/05/2023 96 37 - 153 U/L Final AST 11/05/2023 17 10 - 35 U/L Final ALT 11/05/2023 14 6 - 29 U/L Final CHOLESTEROL, TOTAL 11/05/2023 189 <200 mg/dL Final HDL CHOLESTEROL 11/05/2023 83 > OR = 50 mg/dL Final TRIGLYCERIDES 11/05/2023 109 <150 mg/dL Final LDL-CHOLESTEROL 11/05/2023 85 mg/dL (calc) Final Comment: Reference range: <100 Desirable range <100 mg/dL for primary prevention; <70 mg/dL for patients with CHD or diabetic patients with > or = 2 CHD risk factors. LDL-C is now calculated using the Emmanuel calculation, which is a validated novel method providing better accuracy than the Friedewald equation in the estimation of LDL-C. Randal COURTNEY et al. LIA. 2013;310(19): 4969-6789 (http://education.[employer]. om/faq/QKJ906) CHOL/HDLC RATIO 11/05/2023 2.3 <5.0 (calc) Final NON HDL CHOLESTEROL 11/05/2023 106 <130 mg/dL (calc) Final Comment: For patients with diabetes plus 1 major ASCVD risk factor, treating to a non-HDL-C goal of <100 mg/dL (LDL-C of <70 mg/dL) is considered a therapeutic option. TSH W/REFLEX TO FT4 11/05/2023 3.77 0.40 - 4.50 mIU/L Final Assessment/Plan Diagnoses and all orders for this visit: Ectropion of both lower eyelids, unspecified ectropion type - Ambulatory referral to Plastic Surgery; Future Adjustment disorder with mixed anxiety and depressed mood (CMS/HCC) - ALPRAZolam (Xanax) 1 MG tablet; Take 0.5 tablets (0.5 mg) by mouth in the morning and 0.5 tablets (0.5 mg) before bedtime. Essential hypertension (CMS/HCC) - This is a chronic medical condition that is stable since last assessment. No changes in treatment are suggested at this time. Mixed hyperlipidemia (CMS/HCC) - Labs discussed, at goal. Follow up in about 6 months (around 08/29/2024) for Routine F/U. documented in this encounter [facility] 03-28-2022 Note CONSULTATION CONSULTATION DATE: 03/28/2022 HISTORY OF PRESENT ILLNESS: This is a 71-year-old female returning to the clinic for a three month follow up for chronic lower back pain and SI pain. She was last seen on 12/13/2021, received bilateral lumbar trigger points at that visit. Today, she reports it gave her no relief. Procedure-melton, she had right SI injection in September of this year, which gave her significant relief and a subsequent RFA in November of this year to her right SI joint, which gave her approximately 20% relief. Today, she rates her pain 3/10 with rest and will increase to 8/10 with activity. Housework, lifting, standing, bending and prolonged sitting in the car aggravate her pain. Medication per her PCP is [place] 7.5/325 daily p.r.n., baclofen 10 mg q.h.s., gabapentin 300 mg daily and Cymbalta and Mobic. Patient's REVIEW OF SYSTEMS / PAST MEDICAL HISTORY / ALLERGIES and IMAGES have been reviewed and noted in the chart. PHYSICAL EXAM: VITAL SIGNS: Blood pressure is 133/81. Heart rate is 79. Temperature is 97.1. She is 5'4 , weighs 76 kg. GENERAL APPEARANCE: Pleasant, appropriate, no acute distress. FOCUSED EXAM - BACK: Range of motion is functional in lateral rotation and flexion/extension. Mild reproduction of spinal axial pain to direct compression along the lower lumbar facets of L3, L4, L5. Yaw's point is mildly tender to the right. Negative FABERs and compression tests. MUSCULOSKELETAL: Motor is intact, 4/5 bilaterally. Muscle weakness bilateral quadriceps. NEUROLOGICAL: Radicular sensory is intact bilateral lower extremities. Patellar reflexes are +1 bilaterally. DIAGNOSIS: Chronic pain syndrome, right sacroiliitis and chronic lower back pain. PLAN: I will increase her Cymbalta to 60 mg daily. No further injections at this time. I believe she is a candidate to continue with medical management and exercise only. I did recommend to the patient to take daily walks or even use a recumbent bicycle. She is compliant with her multivitamin regimen and nutrition was discussed today. We will see the patient in three months' time unless otherwise indicated. [facility] [place] [facility] 12-13-2021 Note CONSULTATION PROCEDURE DATE: 12/13/2021 PREOPERATIVE DIAGNOSIS: Right paravertebral spasm. POSTOPERATIVE DIAGNOSIS: Right paravertebral spasm. PROCEDURE: Right paravertebral trigger point injection. Subsequent to obtaining informed consent, the patient was placed in the upright standing forward flexion position. Alcohol prep was used to sterilize the site. 0.125% Marcaine and 40 mg of Kenalog was placed to rest inside the trigger point. Negative heme. Medications injected in a fan-like pattern. Patient tolerated the procedure well with no overt complications. [facility] 12-13-2021 Note CONSULTATION CONSULTATION DATE: 12/13/2021 HISTORY OF PRESENT ILLNESS: This is a pleasant, 71-year-old female returning to the clinic status post right sided SI RFA completed on 11/13/2021. The patient states she does have some improvement but, at this time, it is not significant. She did have an episode of riding on a golf cart recently with the [place] and she reports being what she calls jostled around. She does have some right lumbar pain today. She states she has been using ice on the area that has been slightly beneficial. Her pain is a 2/10 today at rest. It is aggravated by standing, walking, evening hours, housework, lifting and bending. Current medications include Mobic 15 mg daily, baclofen 10 mg q.h.s., gabapentin 200 mg daily and [place] 7.5/325 p.r.n. per her PCP. She denies any new vasomotor changes or radicular pain pattern. Patient's REVIEW OF SYSTEMS / PAST MEDICAL HISTORY / ALLERGIES and IMAGES have been reviewed and they are noted on the chart. PHYSICAL EXAM: VITAL SIGNS: Blood pressure 150/82, heart rate is 68. Temperature is 97.8. She is 5'3 and weighs 76.7 kg. GENERAL APPEARANCE: Pleasant, appropriate, in no acute distress. FOCUSED EXAM - BACK: Range of motion is guarded in lateral rotation and flexion/extension. She has a lumbar scoliotic curve. Significant right lumbar paravertebral spasm is noted with a trigger point identified. Positive jump response to compression. This reproduces the patient's pain symptomatology. Yaw's point is non-tender bilaterally. FABERs is negative. MUSCULOSKELETAL: Motor is intact, 4/5 bilaterally. Muscle atrophy noted bilateral lower extremities. Patient walks with an antalgic gait. Does not use an assistive device. NEUROLOGICAL: Radicular sensory is intact. +1 bilateral patellar and Achilles reflexes. DIAGNOSIS: Right paravertebral spasm. Right sacroiliitis. PLAN: Patient will receive a right lumbar trigger point injection in the clinic today, which she does consent to. She is continue with her heat rub and heat source and to discontinue the ice. I did encourage her to get a professional massage. We did discuss the benefits of the use of compression stockings as she gets dependent bilateral pedal edema. We will see the patient in three months' time unless otherwise indicated. [facility] 10-11-2021 Note CONSULTATION CONSULTATION DATE: 10/11/2021 This is a 71-year-old female returning to the clinic status post #2 right SI joint injection that afforded her 80% relief for three days. Today her pain was four out of 10 which is near her baseline but still an improvement. She describes it as achy and sharp. Two days ago she began having some right anterior thigh pain that radiates to the level of mid-thigh. This appears to be along L4-L5 dermatome. She reports activity such as housework, twisting, pulling, lifting, bending and stairs aggravate her pain. She does use heat alternating with ice in the evening this she feels is helpful. All her medications are prescribed by her PCP which includes Mobic 50 mg q.day, Baclofen 10 mg q.h.s., Cymbalta 30 mg q. day, Gabapentin and Ambien. She denies any new pain pattern or vasomotor changes. REVIEW OF SYSTEMS, PAST MEDICAL HISTORY, ALLERGIES AND IMAGES: Have been reviewed and noted in the chart. PHYSICAL EXAM: VITAL SIGNS: Blood pressure 164/86, heart rate is 77, temperature is 97.7. Height is 5'3 , weighs 168.4 pounds which is 76 kg. GENERAL APPEARANCE: Pleasant and appropriate, in no acute distress. NECK: CHEST: HEART: No JVD. No orthostatic deviation. BACK: Range of motion is functional in lateral rotation and flexion/extension. Paravertebral muscles are non-spasmodic. Reproduction of the patient's pain symptomatology to compression on Yaw's point to the right. Coretta's and compression positive as well as thigh thrust to the right. Compression along the posterior aspect of the lower lumbar facets reproduces interior lateral right lower extremity pain. MUSCULOSKELETAL: Motor is intact, 4 out of 5 bilaterally. Does not use assistive device, ambulates with a steady gait. NEUROLOGICAL: Radicular sensory is intact. Negative polyneuropathy. DIAGNOSIS: Right sacroiliitis, lumbar neuritis. PLAN: We will authorize for a right SI radiofrequency ablation. I did encourage the patient to use compression stockings when traveling long distances and sitting in the house as she has been complaining of bilateral lower leg edema which she did not present with today. I did encourage her to continue with her multivitamin regimen, stretching and exercises. The patient agreed to the plan of care, would like to proceed and will be followed in the office post-procedure. [facility] Signed and Approved by: VANESSA GABRIEL . 10/18/2021 16:26:00 [facility] 08-30-2021 Note CONSULTATION CONSULTATION DATE: 08/30/2021 This is a 71-year-old female who returns to the clinic status post #1 right-sided SI injection which afforded her 98% relief for one day. This was performed on 08/14/2021. The patient states her pain is 7 out of 10 today which is close to her baseline. She experiences most of her pain with weightbearing activities and walking. Changes in the weather and physical activity increase her pain as well. She does use heat which is helpful to her. She did have lumbar radiofrequency ablations in 2019 and the patient is beginning to have left lower extremity moderate radicular pain. She is inquiring about possibly revisiting her lumbar facets after we address her SI. The patient denies any new radicular pain or vasomotor changes. Current medication includes Baclofen 10 q.h.s., Cymbalta, gabapentin 300 mg q. day, [place] 5/325 b.i.d. and Mobic. REVIEW OF SYSTEMS, PAST MEDICAL HISTORY, ALLERGIES AND IMAGES: Have been reviewed and noted in the chart. PHYSICAL EXAM: VITAL SIGNS: Blood pressure 143/86, heart rate is 75, temperature is 97.5. Height is 5'3 , weighs 75.6 kg. GENERAL APPEARANCE: Pleasant and appropriate, in no acute distress. FOCUSED EXAM: Reproduction of spinoaxial pain is noted to direct compression along the lower lumbar facets of L4, L5 bilaterally. Pain does radiate below the knee. Yaw's point is tender to the right with reproduction of the patient's symptomatology. Pain is referred to the right hip and to the right groin which is concordant with right sacroiliitis. Coretta's is positive as is compression and thigh thrust test. MUSCULOSKELETAL: Motor is intact, 4 out of 5 bilaterally. The patient is able to ambulate with a slow, steady gait without an assistive device NEUROLOGICAL: Patchy hypesthesia to the right lower extremity along the L4-L5 dermatome. DIAGNOSIS: Lumbar radiculitis, right SI joint dysfunction, lumbar spondylosis. PLAN: We will get authorization for a number #2 right-sided SI joint injection and look in the future for a rhizotomy of that side. In the meantime, the patient is to continue using a menthol heat rub and a heat source daily to her leg. Stretches were demonstrated for her and were greatly encouraged. She is to maintain her current vitamin regimen and I did recommend a boost supplement daily. The patient agrees with the plan of care and would like to move forward. She will be followed up in the office post procedure. [facility] Signed and Approved by: VANESSA GABRIEL . 09/03/2021 15:08:00 [facility] 07-19-2021 Note CONSULTATION PAIN MANAGEMENT CONSULTATION HISTORY OF PRESENT ILLNESS: This is a pleasant, 70-year-old female who is returning to the clinic for right buttock and right lower back pain. The patient called for this appointment today for this specific pain. She was last seen on 06/12/2021 when she was complaining of left lower back pain and received left gluteal and lumbar trigger point injections by Dr. Degroot. He, at that time, ordered aquatics to be done three times a week for two months, which she has not started. Today, her pain is in her right buttock and is aggravated by prolonged standing, walking, using the vacuum, bending and stairs. Her pain refers to her right hip and into her right groin. She does apply heat which decreases her pain. Current medications include Aleve p.r.n., [place] 7.5/325 daily p.r.n. per her PCP, baclofen, gabapentin, Mobic, and Ambien. Patient denies any vasomotor changes at this time. Patient REVIEW OF SYSTEMS / PAST MEDICAL HISTORY / ALLERGIES and IMAGES have been reviewed and they are noted on the chair. PHYSICAL EXAM: VITALS: Blood pressure 141/83, heart rate is 81. Temperature is 98.2. He is 5'3 and weighs 75 kg. GENERAL APPEARANCE: No acute distress, pleasant and appropriate, sitting in the chair. FOCUSED EXAM - BACK: Bilateral paravertebral muscles are taut but not spasmodic. Range of motion is intact to lateral rotation and flexion/extension. No spinal axial pain reproduction to posterior facets compression. Yaw's point is tender to the right side. Coretta's test as well as compression and thigh thrust test is positive with referral pain to the right hip and groin. This is concordant with right SI joint dysfunction. MUSCULOSKELETAL: Motor is intact, 4/5 bilaterally. Patient walks with a stable gait. Does not use assistive device. NEUROLOGICAL: Radicular sensory is intact. Negative polyneuropathy. IMPRESSION: Right SI joint dysfunction, right gluteal spasm. PLAN: Patient presents per physical exam and in accordance with patient's pain symptomatology to have right SI joint inflammation. I discussed with the patient. She agrees to move forward with a right SI joint injection. In the meantime, exercises were shown and discussed, and she is to do those at home daily in addition to applying a heat rub as well. Patient will be followed up in the office post procedure. I did encourage her to not rely on the [place] for pain, but instead to use her NSAIDs as prescribed. Patient agrees with the plan of care and would like to proceed. [facility] Signed and Approved by: VANESSA GABRIEL . 07/25/2021 13:49:00 [facility] 06-12-2021 Note CONSULTATION PAIN MANAGEMENT CONSULTATION Consultation Date: 06-12-21 CHIEF COMPLAINT: Low back pain, left groin pain, left buttock pain. HISTORY OF PRESENT ILLNESS: This is a very pleasant, 70-year-old female who is known to the [facility]. The patient, in the remote past, in 2019, has had a rhizotomy, radiofrequency ablation, which have afforded the patient substantial improvement of her pain symptomatology. The patient states she is having pain in her buttocks bilaterally, left hand side greater than right hand side. The patient states she was lifting some objects and subsequent to that has not been able to remediate herself out of the pain. The patient currently describes the pain as a 5-6/10, an aching sensation. She takes Motrin 600 mg, [place] 5/325 on a rare occasion, baclofen 10 mg, magnesium, multivitamin and also has gabapentin 300 mg daily, Mobic, Alprazolam 1 mg daily and duloxetine 30 mg. PAST MEDICAL HISTORY / PAST SURGICAL HISTORY / REVIEW OF SYSTEMS are noted on the chart along with the MEDICATION LIST, ALLERGIES, and radiological images, including an MRI dated 2019, which shows significant pathology in her lumbar spine with a scoliotic curve, multiple level degenerative disc and disc bulging and spinal canal stenosis. The report is noted on to the chart. PHYSICAL EXAM: GENERAL: Upon physical examination, this is a pleasant, cooperative, well groomed female, who does not appear to be in any acute distress. VITAL SIGNS:Stable at 141/79 with a heart rate in the 80s. Height of 5'4 . The patient weighs 169 pounds. FOCUSED EVALUATION OF THE LUMBAR SPINE: Significant paravertebral asymmetry is noted. The scoliotic curve is present along the spinous processes. Extension, compression, direct palpation along the posterior elements does not overtly aggravate the patient's pain. The patient has discomfort. Fullness is noted along the L4-L5 level. Paravertebral dextrorotoscoliosis is present. EXTREMITIES: No pedal edema is noted. However, the patient has a significant jump response along the left gluteal muscle with a jump response and reproducing a portion of the patient's symptomatology. MUSCULOSKELETAL: Intact in the lower extremity at 4+/5 bilaterally. NEUROLOGICALLY:No radicular symptomatology is noted. IMPRESSION: Significant lumbar degenerative disc disease, scoliosis, multiple level spinal canal stenosis, bulging discs, status post remote radiofrequency, left gluteal spasming. PLAN: The patient would attend aquatic program to help with mitigation and stretching of the lumbar spine. With regards to the lumbar paravertebral spine and the gluteal spasm, trigger point injections will be done in the office. We will order x-ray of the lumbar spine for a baseline, given the radiological images are remote. The patient understands and would like to proceed. CC: Chavo Benavides M.D. [facility] Signed and Approved by: DR DELVIS DEGROOT . 06/19/2021 10:00:00 [facility] 06-12-2021 Note OPERATIVE NOTE PREOPERATIVE DIAGNOSIS: Gluteal spasm, lumbar paravertebral spasm. POSTOPERATIVE DIAGNOSIS: Gluteal spasm, lumbar paravertebral spasm. PROCEDURE: Left gluteal and left paravertebral trigger point injection. Subsequent to obtaining informed consent, the patient was placed in the prone position. Alcohol prep was used to sterilize the site. A 25 gauge needle was advanced and it comes to rest along the four trigger zones. Negative aspiration. Marcaine 0.125% along with Kenalog 10 mg are injected into each of the sites. Negative heme. The patient tolerates the procedure well without any overt complication. Will be followed up in the office. [facility] Signed and Approved by: DR DELVIS DEGROOT . 06/19/2021 10:00:00 [facility] Evaluation note Diagnosis Insomnia, unspecified documented in this encounter [facility] HealthcareEvaluation note* Diagnosis Ectropion of both lower eyelids, unspecified ectropion type- Primary Adjustment disorder with mixed anxiety and depressed mood (CMS/HCC) Adjustment disorder with mixed anxiety and depressed mood Essential hypertension (CMS/HCC) Unspecified essential hypertension Mixed hyperlipidemia (CMS/HCC) Mixed hyperlipidemia documented in this encounter [facility] HealthcareEvaluation note* Diagnosis Primary osteoarthritis of left knee- Primary Acute pain of left knee documented in this encounter [facility] HealthcareEvaluation note* Diagnosis Insomnia, unspecified documented in this encounter [facility] Healthcare Summary Purpose Family History No Family History Records FoundNo Family History Records Found Advance Directives No Advanced Directives Records FoundNo Advanced Directives Records Found Additional Source Comments INFORMATION SOURCE (unrecogn ized section and content) DATE CREATED AUTHOR 04/04/2022 [facility] DATE CREATED AUTHOR AUTHOR'S ORGANIZ ATION 03/26/2024 [facility] EPIC Reason for Visit (unrecogniz ed section and content) Reason Comments Med Refill Reason Comments Hypertension Results Lab results 10/2023 Med Refill Xanax--dm [place] Reason Onset Date Comments Med Refill 06/07/2024 Care Teams (unrecognized sec tion and content) Expediter Relationship Specialty Start Date End Date Chavo Benavides MD [address] [facility] [address] [place] [address] PCP - General Internal Medicine 10/22/22 Expediter Relationship Specialty Start Date End Date Chavo Benavides MD [address] [facility] [address] [place] [address] PCP - General Internal Medicine 10/22/22 Expediter Relationship Specialty Start Date End Date Chavo Benavides MD [address] [facility] [address] [place] [address] PCP - General Internal Medicine 10/22/22 Expediter Relationship Specialty Start Date End Date Chavo Benavides MD [address] [facility] [address] [place] [address] PCP - General Internal Medicine 10/22/22 Expediter Relationship Specialty Start Date End Date Chavo Benavides MD [address] [facility] [address] [place] [address] PCP - General Internal Medicine 10/22/22 Expediter Relationship Specialty Start Date End Date Chavo Benavides MD [address] [facility] [address] [place] [address] PCP - General Internal Medicine 10/22/22 FOR RECORDS PERTAINING TO PATIENTS WHO ARE OR HAVE BEEN ENROLLED IN A CHEMICAL DEPENDENCY/SUBSTANCEABUSE PROGRAM, SOME INFORMATION MAY BE OMITTED. This clinical summary was aggregated from multiple sources. Caution should be exercised in using it in the provision of clinical care. This summary normalizes information from multiple sources, and as a consequence, information in this document may materially change the coding, format and clinical context of patient data. In addition, data may be omitted in some cases. CLINICAL DECISIONS SHOULD BE BASED ON THE PRIMARY CLINICAL RECORDS. [employer] [facility]. provides no warranty or guarantee of the accuracy or completeness of information in this document.
== END 2024-07-12 08:22 | disposition home or self-care (01) ==
LOC: MAMMO 08:21
PROVIDERS: PCP Internal Medicine; Visit Provider Internal Medicine
DX: Z12.31 Encounter for screening mammogram for malignant neoplasm of breast (principal); Z80.8 Family history of malignant neoplasm of other organs or systems
CPT/HCPCS: 77063; 77067

== ENCOUNTER 2024-10-30 11:02 | Emergency (ER) | payer MEDICARE, SELFPAY ==
--- OUTSIDE RECORDS SUMMARY | 2024-01-28 05:30 | XMS_ITS ---
Author Organization [facility] Address [address] [place] [address] Care Team Providers Care Project Coordinator Rn Name Role Phone Jaime Janelle Unavailable [phone] REASON FOR VISIT Perio Maint Encounters Encounter Location Date Provider Diagnosis [facility] [address] [place] [address] 01/28/2024 Janelle Sandoval Plan Of Treatment No Information Progress Notes * KENDRABINDU CONRADDOB: (74 yo F)Acc No.[id number]:01/28/2024 Patient: BINDU BANEGAS Provider: Tera Sandoval :1950 A ge:73 Y S ex:Female Date:01/28/2024 Address[address], [place], [id number] Subjective: * Chief Complaints: * 1 . Perio Maint. * Medical History: Objective: * Vitals: Assessment: Plan: * Treatment: * Images: * Electronic signature of Urban Sandoval on 10/30/2024 at 11:27 AM EDT Sign off status: Pending * Provider: Tera Sandoval Date: 1 Generated for Kendell ng/Faceciliog/eTransmitting on: 0 10/30/2024 11:27 AM EDT
[2024-10-30 11:06] VITALS: BP 149/86; PULSE 77; TEMP 36.6; O2SAT 95; BMI 28.9
--- NOTE | 2024-10-30 11:13 | CT_ITS ---
The [address] [address] Patient Name: BINDU OROPEZA MRN: [id number] date: 1950 Sex: F Assigned Patient Location: ED.MAIN Current Patient Location: ED.MAIN Accession/Order Number: [id number] Exam Date: 10/30/2024 12:08 Report Date: 10/30/2024 12:10 At the request of: DARRYL REAVES MD Procedure: CT head/brain wo con CT BRAIN WITHOUT CONTRAST: CLINICAL HISTORY: FALL COMPARISON: 02/22/2020 TECHNIQUE: Contiguous axial unenhanced images were obtained through the brain. This CT exam was performed using one or more following dose reduction techniques: Automated exposure control, adjustment of the mA and/or kV according to patient size, or use of iterative reconstruction technique. FINDINGS: There is no evidence of midline shift, intra or extra-axial fluid collection, hemorrhage or CT evidence of acute large vascular distribution stroke. Minor central involutional changes and chronic small vessel ischemic disease. Visualized intraorbital contents appear unremarkable. Mild paranasal sinus thickening. The surrounding soft tissues are normal. CT/CT head/brain wo con IMPRESSION: NO ACUTE INTRACRANIAL ABNORMALITY. MINOR CHRONIC SMALL VESSEL CHANGES Impression dictated by: Zachary Stanley M.D. 10/30/2024 12:10 PM Dictation Location: [place] [address] Electronically authenticated by: [id number] Y Date: 10/30/2024 12:10
--- OUTSIDE RECORDS SUMMARY | 2024-10-30 11:27 | XMS_ITS | CCD ---
Author Organization [facility] Care Team Providers Care Software Specialist Name Role Phone BELINDA, DR DELVIS Abrams Attending Unavailable BELINDA, DR DELVIS Abrams Admitting Unavailable BETSY, DR ROPER Primary Care Unavailable GABIREL, VANESSA Consulting Unavailable BELINDA, DR DELVIS Abrams [...] Unavailable Chavo Benavides MD Primary Care Provider RANI OTTO Attending Unavailable RANI OTTO Attending Unavailable CHRISTO CHEW Attending Unavailable KARLY MILLER Attending Unavailable CHAVO BENAVIDES Attending Unavailable TANISHA MACKEY Attending Unavailable CHAVO BENAVIDES Attending Unavailable KARLY MILLER Attending Unavailable CHAVO BENAVIDES Attending Unavailable RANI OTTO Attending Unavailable Allergies Allergy Classification Reported Allergen(s) Allergy Type Date of Onset Reaction(s) Facility (20 sources) benazepril Drug Allergy 07-01-2023 Cough [facility] Work Phone: Medications Current Medications Medication Drug Class(es) Dates Sig (Normalized) Sig (Original) [id number] 200 actuat albuterol 0.09 mg/actuat metered dose inhaler (20 sources) beta2-Adrenergic Agonist Start: 05-27-2022 take 1 puff(s) by inhalation every four hours albuterol HFA 90 mcg/act inhaler Inhale 1 puff every 4 (four) hours 05/27/2022 Active ALPRAZolam 1 mg oral tablet (20 sources) Benzodiazepine Start: 09-07-2024 Alprazolam 1 mg tablet Active MG PO September 07, 2024 12:00am Start: 08-12-2023 End: 11-28-2024 take 0.5 tablet by mouth in the morning ALPRAZolam (Xanax) 1 MG tablet Indications: Adjustment disorder with mixed anxiety and depressed mood (CMS/HCC) Take 0.5 tablets (0.5 mg) by mouth in the morning and 0.5 tablets (0.5 mg) before bedtime. 30 tablet 2 08/30/2024 11/28/2024 Active Start: 10-24-2022 take 0.5 tablet by m outh in the morning ALPRAZolam (Xanax) 1 MG tablet Indications: Adjustment disorder with mixed anxiety and depressed mood (CMS/HCC) Take 0.5 tablets (0.5 mg) by mouth in the morning and 0.5 tablets (0.5 mg) before bedtime. 30 tablet 3 10/24/2022 Active amLODIPine 10 mg oral tablet (20 sources) Dihydropyridine Calcium Channel Bailey Start: 09-13-2024 take 1 tablet by mouth once daily amLODIPine (Norvasc) 10 MG tablet Indications: Essential hypertension (CMS/HCC) TAKE 1 TABLET BY MOUTH DAILY 100 tablet 3 09/13/2024 Active Start: 10-27-2023 End: 10-26-2024 Amlodipine 10 mg tablet Acti ve MG PO September 07, 2024 12:00am amLODIPine 5 mg / benazepril hydrochloride 20 mg oral capsule (1 source) Dihydropyridine Calcium Channel Bailey, Angiotensin Converting Enzyme Inhibitor take 1 capsule by mouth in the morning amLODIPine-benazepril (Lotrel) 5-20 MG capsule Take 1 capsule by mouth in the morning. 0 Active azithromycin 250 mg oral tablet (3 sources) Macrolide Antimicrobial Start: 2024 azithromycin (Zithromax) 250 MG tablet Indications: Acute left otitis media 2 tabs x 1 day, 1 tab x 4 days 6 tablet 09/09/2024 Active Start: 09-09-2024 azithromycin ( Zithromax) 250 MG tablet Indications: Acute left otitis media 2 tabs x 1 day, 1 tab x 4 days 6 tablet 09/09/2024 Active baclofen 10 mg oral tablet (20 sources) gamma-Aminobutyric Acid-ergic Agonist Start: 12-16-2023 End: 08-30-2024 Baclofen 10 mg tablet Active MG PO September 07, 2024 12:00am Start: 09-24-2022 take 1 tablet by marie th three times daily baclofen (Lioresal) 10 MG tablet Indications: Other chronic pain TAKE 1 TABLET BY MOUTH THREE TIMES DAILY 90 tablet 2 10/02/2022 Active black cohosh extract 540 mg oral capsule (20 sources) Black Cohosh 540 MG capsule Take by mouth Active Black Cohosh 540 MG capsule Take by mouth. Active Black Cohosh 80 MG capsule Daily. 0 Active Black Cohosh 540 MG capsule Take by mouth. 0 Active chlorhexidine gluconate 1.2 mg/ml mouthwash (20 sources) Start: 07-29-2023 take 15 mL by mouth in the morning chlorhexidine (Peridex) 0.12 % solution Use 15 mL in the mouth or throat in the morning and 15 mL before bedtime. 07/29/2023 Active diphenhydrAMINE hydrochloride 25 mg oral capsule (20 sources) Histamine-1 Receptor Antagonist take 1 capsule by mouth every eight hours as needed diphenhydrAMINE (Allergy) 25 MG capsule Take 25 mg by mouth every 8 (eight) hours if needed for allergies Active DULoxetine 30 mg delayed release oral capsule (20 sources) Serotonin and Norepinephrine Reuptake Inhibitor Start: 03-08-2024 take 1 capsule by mouth once daily DULoxetine (Cymbalta) [address] capsule Indications: Adjustment disorder with mixed anxiety and depressed mood (CMS/HCC) TAKE 1 CAPSULE BY MOUTH DAILY 100 capsule 2 03/08/2024 Active Start: 06-20-2023 take 1 capsule by mo ut once daily DULoxetine (Cymbalta) [address] capsule Indications: Adjustment disorder with mixed anxiety and depressed mood (CMS/HCC) Take 1 capsule (30 mg) by mouth Daily 100 capsule 2 06/20/2023 Active take 1 capsule by ne ut in the morning DULoxetine (Cymbalta) [address] capsule Take 30 mg by mouth in the morning. 0 Active Duloxetine 30 mg capsule,delayed release(DR/EC) (1 source) Start: 09-07-2024 Duloxetine 30 mg capsule,delayed release(DR/EC) Active MG PO September 07, 2024 12:00am estradiol 0.1 mg/ml vaginal cream (20 sources) Estrogen Start: 09-07-2024 Estradiol 0.01 % (0.1 mg/gram) cream Active VAGINAL September 07, 2024 12:00am Start: 06-19-2023 End: 08-10-2024 estradiol (Estrace) 0.1 MG/G M vaginal cream Indications: Vulvovaginal Atrophy Insert 1 gram twice weekly 42.5 g 5 08/10/2024 Active gabapentin 300 mg oral capsule (20 sources) Anti-epileptic Agent Start: 12-17-2023 End: 07-13-2024 Gabapentin 300 mg capsule Active MG PO September 07, 2024 12:00am Start: 03-19-2023 take 1 capsule by mo ut twice daily gabapentin (Neurontin) 300 MG capsule Indications: Other chronic pain TAKE 1 CAPSULE BY MOUTH TWICE DAILY 60 capsule 5 03/19/2023 Active hydroCHLOROthiazide 12.5 mg oral tablet (20 sources) Thiazide Diuretic Start: 12-08-2023 take 1 [...] Active loperamide hydrochloride 2 mg oral capsule (20 sources) Opioid Agonist loperamide (Imodium) 2 MG capsule Take 2 mg by mouth as needed in the morning and 2 mg as needed at noon and 2 mg as needed in the evening and 2 mg as needed before bedtime for diarrhea. Active melatonin 10 mg oral capsule (20 sources) take 1 capsule by mouth at bedtime Melatonin 10 MG capsule Take 10 mg by mouth at bedtime Active meloxicam 15 mg oral tablet (20 sources) Nonsteroidal Anti-inflammatory Drug Start: 06-07-2024 take [...] by mouth in the morning. 0 Active methylPREDNISolone (3 sources) Corticosteroid Start: 09-09-2024 End: 09-16-2024 methylPREDNISolone (Medrol Dospak) 4 MG tablets Indications: Acute left otitis media Follow schedule on package instructions 21 tablet 09/09/2024 09/16/2024 Active olmesartan medoxomil 20 mg oral tablet (20 sources) Angiotensin 2 Receptor Bailey Start: 10-27-2023 End: 10-26-2024 take 1 tablet by mouth once daily olmesartan (BENIcar) 20 MG tablet Indications: Essential hypertension (CMS/HCC) Take 1 tablet (20 mg) by mouth Daily 90 tablet 3 10/27/2023 10/26/2024 Active omeprazole 40 mg delayed release oral capsule (20 sources) Proton Pump Inhibitor Start: 09-13-2024 take 1 capsule by mouth before mealtime omeprazole (PriLOSEC) [address] capsule Indications: Gastro-esophageal reflux disease without esophagitis TAKE 1 CAPSULE BY MOUTH IN THE MORNING BEFORE a meal * DO NOT CRUSH OR CHEW * 90 capsule 3 09/13/2024 Active Start: 10-27-2023 End: 10-26-2024 take 1 capsule by mouth before mealtime omeprazole (PriLOSEC) [address] capsule Indications: Gastro-esophageal reflux disease without esophagitis Take 1 capsule (40 mg) by mouth in the morning. Take before meals. Do not crush or chew.. 90 capsule 3 10/27/2023 09/13/2024 Discontinued Start: 09-24-2022 omeprazole (Pr iLOSEC) [address] capsule Indications: Gastro-esophageal reflux disease without esophagitis TAKE 1 CAPSULE BY MOUTH 30 mins BEFORE morning meal 90 capsule 3 09/24/2022 Active simvastatin 40 mg oral tablet (20 sources) HMG-CoA Reductase Inhibitor Start: 12-08-2023 take [...] ONCE DAILY 90 tablet 3 12/24/2022 Active valACYclovir 1000 mg oral tablet (19 sources) Herpesvirus Nucleoside Analog DNA Polymerase Inhibitor, Herpes Simplex Virus Nucleoside Analog DNA Polymerase Inhibitor, Herpes Zoster Virus Nucleoside Analog DNA Polymerase Inhibitor Start: 07-27-2024 End: 07-29-2024 take 2 tablets by mouth in the morning, then take 2 tablets by mouth at bedtime valACYclovir (Valtrex) 1 g tablet Indications: Recurrent cold sores Take 2 tablets (2,000 mg) by mouth in the morning and 2 tablets (2,000 mg) before bedtime. Take within 24-48 hours of onset of symptoms for 1 day. 4 tablet 5 07/29/2024 Active Start: 07-13-2024 End: 07-14-2024 take 2 tablets by mouth in the morning valACYclovir (Valtrex) 1 g tablet Indications: Recurrent cold sores Take 2 tablets (2,000 mg) by mouth in the morning and 2 tablets (2,000 mg) before bedtime. Do all this for 1 day. 4 tablet 07/13/2024 07/14/2024 Active zolpidem tartrate 10 mg oral tablet (20 sources) gamma-Aminobutyric Acid-ergic Agonist Start: 11-18-2023 End: 06-07-2024 Zolpidem 10 mg tablet Active MG PO September 07, 2024 12:00am Start: 10-24-2022 End: 05-22-2023 take 1 tablet by mouth at bedtime as needed zolpidem (Ambien) 10 MG tablet Indications: Insomnia, unspecified TAKE 1 TABLET BY MOUTH AT BEDTIME NEEDED 30 tablet 5 05/22/2023 Active Problems Active Problems Problem Classification Problem Date Documented Da te Episodic/Chronic Adjustment disorders (20 sources) Adjustment disorder with mixed anxiety and depressed mood; Translations: [Adjustment disorder with mixed anxiety and depressed mood] Onset: 9 09-24-2022 Chronic Administrative/social admission (2 sources) Patient encounter status; Translations: [Other specified counseling] 08-30-2024 Episodic Anxiety disorders (20 sources) Generalized anxiety disorder; Translations: [Generalized anxiety disorder] Onset: 3 09-24-2022 Chronic Asthma (20 sources) Mixed asthma; Translations: [Unspecified asthma, uncomplicated] Onset: 3 09-24-2022 Chronic Disorders of lipid metabolism (20 sources) Mixed hyperlipidemia; Translations: [Mixed hyperlipidemia] Onset: 3 09-24-2022 Chronic Esophageal disorders (20 sources) Gastroesophageal reflux disease without esophagitis; Translations: [Gastro-esophageal reflux disease without esophagitis] Onset: 3 09-24-2022 Chronic Essential hypertension (20 sources) Essential hypertension; Translations: [Essential (primary) hypertension] Onset: 3 09-24-2022 Chronic Inflammation; infection of eye (except that caused by tuberculosis or sexually transmitteddisease) (2 sources) Blepharitis; Translations: [Unspecified blepharitis unspecified eye, unspecified eyelid] 08-16-2024 Episodic Menopausal disorders (2 sources) Atrophic vaginitis; Translations: [Postmenopausal atrophic vaginitis] 08-09-2024 Chronic Miscellaneous mental health disorders (2 sources) Primary insomnia; Translations: [Primary insomnia] 07-13-2024 Chronic Nonspecific chest pain (2 sources) Chest pain; Translations: [Chest pain, unspecified] 07-29-2024 Episodic Osteoarthritis (20 sources) Osteoarthritis of joint of left elbow; Translations: [Primary osteoarthritis, left elbow] Onset: 3 09-24-2022 Chronic Osteoporosis (2 sources) Postmenopausal osteoporosis; Translations: [Age-related osteoporosis without current pathological fracture] 08-09-2024 Chronic Other acquired deformities (5 sources) Scoliosis, unspecified; Translations: [SCOLIOSIS UNSPECIFIED] Onset: 2 Chronic Other acquired deformities (20 sources) Contracture of joint of right ankle; Translations: [Contracture, right ankle] Onset: 3 09-24-2022 Chronic Other acquired deformities (20 sources) Scoliosis deformity of spine; Translations: [Scoliosis, unspecified] Onset: 3 09-24-2022 Chronic Other circulatory disease (2 sources) Spider nevus; Translations: [Nevus, non-neoplastic] 08-16-2024 Episodic Other eye disorders (4 sources) Lower eyelid ectropion; Translations: [Unspecified ectropion of right lower eyelid] 03-01-2024 Episodic Other gastrointestinal disorders (20 sources) Irritable bowel syndrome with diarrhea; Translations: [Irritable bowel syndrome with diarrhea] Onset: 3 09-24-2022 Chronic Other hereditary and degenerative nervous system conditions (20 sources) Restless legs; Translations: [Restless legs syndrome] Onset: 3 09-24-2022 Chronic Other inflammatory condition of skin (20 sources) Psoriasis vulgaris; Translations: [Psoriasis vulgaris] Onset: 3 09-24-2022 Chronic Other nervous system disorders (1 source) Chronic pain syndrome; Translations: [CHRONIC PAIN SYNDROME] Onset: 2 Chronic Other nervous system disorders (1 source) Other chronic pain; Translations: [OTHER CHRONIC PAIN] Onset: 2 Chronic Other nervous system disorders (20 sources) Difficulty walking; Translations: [Difficulty in walking, not elsewhere classified] Onset: 3 09-24-2022 Chronic Other nervous system disorders (20 sources) Chronic pain; Translations: [Other chronic pain] Onset: 3 09-24-2022 Chronic Other nervous system disorders (20 sources) Carpal tunnel syndrome; Translations: [Carpal tunnel syndrome, unspecified upper limb] Onset: 3 09-24-2022 Chronic Other non-epithelial cancer of skin (2 sources) History of squamous cell carcinoma of skin; Translations: [Personal history of other malignant neoplasm of skin] 08-16-2024 Episodic Other non-traumatic joint disorders (2 sources) Pain in left knee; Translations: [Pain in joint, lower leg] 03-23-2024 Episodic Other skin disorders (2 sources) Seborrheic keratosis; Translations: [Other seborrheic keratosis] 08-16-2024 Episodic Other skin disorders (2 sources) Lentiginosis; Translations: [Other melanin hyperpigmentation] 08-16-2024 Episodic Otitis media and related conditions (2 sources) Acute left otitis media; Translations: [Otitis media, unspecified, left ear] 09-09-2024 Episodic Spondylosis; intervertebral disc disorders; other back problems (20 sources) Sacroiliitis, not elsewhere classified; Translations: [Other spondylosis with radiculopathy, lumbar region] Onset: 2 Chronic Unclassified (4 sources) LOW BACK PAIN, UNSPECIFIED; Translations: [LOW BACK PAIN, UNSPECIFIED] Onset: 2 Unclassified (1 source) CONTACT W/AND (SUSP) EXPOS COVID-19; Translations: [CONTACT W/AND (SUSP) EXPOS COVID-19] Onset: Past or Other Problems Problem Classification Problem Date Documented Da te Episodic/Chronic Inflammatory diseases of female pelvic organs (20 sources) Chronic vaginitis; Translations: [Subacute and chronic vaginitis] Onset: 09-24-2022 09-24-2022 Episodic Other bone disease and musculoskeletal deformities (20 sources) Osteopenia; Translations: [Other specified disorders of bone density and structure, unspecified site] Onset: 09-24-2022 09-24-2022 Episodic Other connective tissue disease (1 source) Other muscle spasm; Translations: [OTHER MUSCLE SPASM] Onset: 07-24-2021 Episodic Other connective tissue disease (20 sources) Triggering of digit; Translations: [Trigger finger, left ring finger] Onset: 09-24-2022 09-24-2022 Episodic Other nervous system disorders (20 sources) Paresthesia; Translations: [Paresthesia of skin] Onset: 09-24-2022 09-24-2022 Episodic Other nutritional; endocrine; and metabolic disorders (20 sources) Body mass index 30+ - obesity; Translations: [Obesity, unspecified] Onset: 09-24-2022 Resolved: 10-24-2022 10-24-2022 Chronic Other screening for suspected conditions (not mental disorders or infectious disease) (20 sources) Mammography abnormal; Translations: [Other abnormal and inconclusive findings on diagnostic imaging of breast] Onset: 09-24-2022 09-24-2022 Episodic Other skin disorders (20 sources) Multiple actinic keratoses; Translations: [Actinic keratosis] Onset: 09-24-2022 09-24-2022 Episodic Residual codes; unclassified (1 source) Other specified postprocedural states; Translations: [OTH SPECIFIED POSTPROCEDURAL STATES] Onset: 06-13-2021 Episodic Residual codes; unclassified (20 sources) Insomnia; Translations: [Insomnia, unspecified] Onset: 09-24-2022 05-22-2023 Episodic Spondylosis; intervertebral disc disorders; other back problems (20 sources) Muscle spasm of back; Translations: [Sacrococcygeal disorders, not elsewhere classified] Onset: 06-12-2021 Episodic Unclassified (1 source) LOW BACK PAIN, UNSPECIFIED; Translations: [LOW BACK PAIN, UNSPECIFIED] Onset: 03-28-2022 Viral infection (20 sources) Recurrent herpes simplex labialis; Translations: [Herpesviral vesicular dermatitis] Onset: 09-24-2022 09-24-2022 Episodic Results Test Name Value Interpretation Reference Range Facil ity MM TOMOSYNTHESIS SCREENING B Ion 07-12-2024 [facility] [place] [id number] Mammography Report Signed Patient: VIVIENNE OROPEZA MR#: [id number] : 1950 Acct:[id number] Age/Sex: 73 / F ADM Date: 07/12/24 Loc: MAMMO Attending Dr: CHAVO BENAVIDES Ordering Physician: CHAVO BENAVIDES Results: Date of Service: 07/12/24 Follow Up: Procedure(s): MM tomosynthesis screening BI Accession Number(s): [id number] cc: CHAVO BENAVIDES Patient Name: VIVIENNE OROPEZA MR#: [id number] : 1950 Exam Date: 07/12/2024 Ordering Doctor: DR CHAVO BENAVIDES M.D. RADIOLOGY REPORT PROCEDURE: MM TOMOSYNTHESIS SCREENING BI COMPARISON: MM TOMOSYNTHESIS SCREENING BI, 06/13/2023. MG MAMM SCREEN 3D RICCI CAD, 04/02/2021. MG MAMM RICCI SCRN W CAD DIG, 12/31/2007. INDICATIONS: Screening Calculator Name NCI Breast Cancer Risk Assessment Tool 5 Year Breast Cancer Risk 2.20% Lifetime Breast Cancer Risk 5.30% Personal Breast Cancer No Personal Ovarian Cancer No Treatments None Family Cancers Mother with unknown/pelvis cancer at age 42. LOCATION: [facility] BREAST COMPOSITION: There are scattered areas of fibroglandular density. FINDINGS: DIAGNOSTIC CATEGORY 1--NEGATIVE. RIGHT BREAST: No significant suspicious finding. LEFT BREAST: No significant suspicious finding. RECOMMENDATIONS: ROUTINE MAMMOGRAM AND CLINICAL EVALUATION IN 12 MONTHS. PLEASE NOTE: A NORMAL MAMMOGRAM DOES NOT EXCLUDE THE POSSIBILITY OF BREAST CANCER. A CLINICALLY SUSPICIOUS PALPABLE LUMP SHOULD BE BIOPSIED. Dictated by: Bradley Gannon DO on 07/12/2024 at 16:22 Approved by: Bradley Gannon DO on 07/12/2024 at 16:24 Dictated By: Bradley Gannon M.D. Signed By: 07/12/24 1625 DD/ TD/TT: Treating Plant Supervisor: [facility] Radiology, Radiologist, MD - 07/12/2024 [place] [id number] Mammography Report Signed Patient: VIVIENNE OROPEZA MR#: [id number] : 1950 Acct:[id number] Age/Sex: 73 / F ADM Date: 07/12/24 Loc: MAMMO Attending Dr: CHAVO BENAVIDES Ordering Physician: CHAVO BENAVIDES Results: Date of Service: 07/12/24 Follow Up: Procedure(s): MM tomosynthesis screening BI Accession Number(s): [id number] cc: BETSYCHAVO Patient Name: VIVIENNE OROPEZA MR#: [id number] : 1950 Exam Date: 07/12/2024 Ordering Doctor: DR CHAVO BENAVIDES M.D. RADIOLOGY REPORT PROCEDURE: MM TOMOSYNTHESIS SCREENING BI COMPARISON: MM TOMOSYNTHESIS SCREENING BI, 06/13/2023. MG MAMM SCREEN 3D RICCI CAD, 04/02/2021. MG MAMM RICCI SCRN W CAD DIG, 12/31/2007. INDICATIONS: Screening Calculator Name NCI Breast Cancer Risk Assessment Tool 5 Year Breast Cancer Risk 2.20% Lifetime Breast Cancer Risk 5.30% Personal Breast Cancer No Personal Ovarian Cancer No Treatments None Family Cancers Mother with unknown/pelvis cancer at age 42. LOCATION: [facility] BREAST COMPOSITION: There are scattered areas of fibroglandular density. FINDINGS: DIAGNOSTIC CATEGORY 1--NEGATIVE. RIGHT BREAST: No significant suspicious finding. LEFT BREAST: No significant suspicious finding. RECOMMENDATIONS: ROUTINE MAMMOGRAM AND CLINICAL EVALUATION IN 12 MONTHS. PLEASE NOTE: A NORMAL MAMMOGRAM DOES NOT EXCLUDE THE POSSIBILITY OF BREAST CANCER. A CLINICALLY SUSPICIOUS PALPABLE LUMP SHOULD BE BIOPSIED. Dictated by: Bradley Gannon DO on 07/12/2024 at 16:22 Approved by: Bradley Gannon DO on 07/12/2024 at 16:24 Dictated By: Bradley Gannon M.D. Signed By: 07/12/241624 DD/ 23 TD/TT: Treating Plant Supervisor: [facility] Radiology Study observation (narrative) [facility] MM TOMOSYNTHESIS SCREENING B IOrdered By: Radiologist Radiology on 07-12-2024 [employer] Work Phone: Covid-19 PCR ([facility])on 10-13 SARS-CoV-2 (COVID-19) RNA SHERYL+probe Ql (Unsp spec) Not detected Normal NOT DETECTED [facility] Comment on above: Result Comment: This test is not yet approved or cleared by the [place] FDA. When there are no FDA-approved or cleared tests available, and other criteria are met, FDA can make tests available under an emergency access mechanism called an Emergency Use Authorization (EUA). The EUA for this test is supported by the [employer] of Health and Human Service's (HHS's) declaration [...] consistent with SARS-CoV-2. Performed By: #### [facility] #### [facility] [address] [place] [address] Dr. Hubert Jean XR LSPINE W_OBLS AND [...] by: GORDON GUTIERREZ Date: 2021-06-12 15:26 Normal [facility] Vital Signs Date Time Vital Sign Value Performing Clinician Facility 09-09-2024 09:33-0400 Body height 162.6 cm Tanisha Mackey PLANT MAINTENANCE ENGINEER Work Phone: [facility] 09-09-2024 09:33-0400 Body mass index (BMI) [Ratio] 26.95 kg/m2 Tanisha Mackey PLANT MAINTENANCE ENGINEER Work Phone: [facility] 09-09-2024 09:33-0400 Body weight 71.22 kg Tanisha Mackey PLANT MAINTENANCE ENGINEER Work Phone: [facility] 09-09-2024 09:33-0400 Diastolic blood pressure 64 mm[Hg] Tanisha Mackey PLANT MAINTENANCE ENGINEER Work Phone: [facility] 09-09-2024 09:33-0400 Heart rate 84 /min Tanisha Mackey PLANT MAINTENANCE ENGINEER Work Phone: [facility] 09-09-2024 09:33-0400 Respiratory rate 16 /min Tanisha Mackey PLANT MAINTENANCE ENGINEER Work Phone: [facility] 09-09-2024 09:33-0400 SaO2% (BldA) [Mass fraction] 96 % Tanisha Mackey PLANT MAINTENANCE ENGINEER Work Phone: [facility] 09-09-2024 09:33-0400 Systolic blood pressure 108 mm[Hg] Tanisha Mackey PLANT MAINTENANCE ENGINEER Work Phone: [facility] 09-07-2024 09:23-0400 Body height 160.02 cm [facility] 09-07-2024 09:23-0400 Body mass index (BMI) [Ratio] 28.5 kg/m2 [facility] 09-07-2024 09:23-0400 Body temperature 99.1 [degF] [facility] 09-07-2024 09:23-0400 Body weight 73.19 kg [facility] 09-07-2024 09:23-0400 Diastolic blood pressure 80 mm[Hg] [facility] 09-07-2024 09:23-0400 Heart rate 96 /min [facility] 09-07-2024 09:23-0400 Respiratory rate 18 /min [facility] 09-07-2024 09:23-0400 SaO2% (BldA) [Mass fraction] 95 % [facility] 09-07-2024 09:23-0400 Systolic blood pressure 129 mm[Hg] [facility] 08-30-2024 10:30-0400 Body height 162.6 cm Chavo Benavides MD Work Phone: [facility] 08-30-2024 10:30-0400 Body mass index (BMI) [Ratio] 27.29 kg/m2 Chavo Benavides MD Work Phone: [facility] 08-30-2024 10:30-0400 Body weight 72.12 kg Chavo Benavides MD Work Phone: [facility] 08-30-2024 10:30-0400 Diastolic blood pressure 70 mm[Hg] Chavo Benavides MD Work Phone: [facility] 08-30-2024 10:30-0400 Heart rate 81 /min Chavo Benavides MD Work Phone: [facility] 08-30-2024 10:30-0400 SaO2% (BldA) [Mass fraction] 97 % Chavo Benavides MD Work Phone: [facility] 08-30-2024 10:30-0400 Systolic blood pressure 136 mm[Hg] Chavo Benavides MD Work Phone: [facility] 08-10-2024 08:51-0400 Body mass index (BMI) [Ratio] 26.78 kg/m2 Christo Chew MD Work Phone: [facility] 08-10-2024 08:51-0400 Body weight 70.76 kg Christo Chew MD Work Phone: [facility] 08-10-2024 08:51-0400 Diastolic blood pressure 70 mm[Hg] Christo Chew MD Work Phone: [facility] 08-10-2024 08:51-0400 Systolic blood pressure 120 mm[Hg] Christo Chew MD Work Phone: [facility] 07-29-2024 11:33-0400 Body height 162.6 cm Rani Hemmer PA Work Phone: [facility] 07-29-2024 11:33-0400 Body mass index (BMI) [Ratio] 26.81 kg/m2 Rani Hemmer PA Work Phone: [facility] 07-29-2024 11:33-0400 Body weight 70.85 kg Rani Hemmer PA Work Phone: [facility] 07-29-2024 11:33-0400 Diastolic blood pressure 74 mm[Hg] Rani Hemmer PA Work Phone: [facility] 07-29-2024 11:33-0400 Heart rate 80 /min Rani Hemmer PA Work Phone: [facility] 07-29-2024 11:33-0400 Respiratory rate 16 /min Rani Hemmer PA Work Phone: [facility] 07-29-2024 11:33-0400 SaO2% (BldA) [Mass fraction] 98 % Rani Hemmer PA Work Phone: [facility] 07-29-2024 11:33-0400 Systolic blood pressure 126 mm[Hg] Rani Hemmer PA Work Phone: [facility] 07-13-2024 09:36-0400 Body height 162.6 cm Rani Hemmer PA Work Phone: [facility] 07-13-2024 09:36-0400 Body mass index (BMI) [Ratio] 26.81 kg/m2 Rani Hemmer PA Work Phone: [facility] 07-13-2024 09:36-0400 Body weight 70.85 kg Rani Hemmer PA Work Phone: [facility] 07-13-2024 09:36-0400 Diastolic blood pressure 82 mm[Hg] Rani Hemmer PA Work Phone: [facility] 07-13-2024 09:36-0400 Heart rate 86 /min Rani Hemmer PA Work Phone: [facility] 07-13-2024 09:36-0400 Respiratory rate 16 /min Rani Hemmer PA Work Phone: [facility] 07-13-2024 09:36-0400 SaO2% (BldA) [Mass fraction] 98 % Rani Hemmer PA Work Phone: [facility] 07-13-2024 09:36-0400 Systolic blood pressure 134 mm[Hg] Rani Hemmer PA Work Phone: [facility] 03-23-2024 13:40-0500 Body height 162.6 cm Rani Hemmer PA Work Phone: [facility] 03-23-2024 13:40-0500 Body mass index (BMI) [Ratio] 27.46 kg/m2 Rani Hemmer PA Work Phone: [facility] 03-23-2024 13:40-0500 Body weight 72.58 kg Rani Hemmer PA Work Phone: [facility] 03-23-2024 13:40-0500 Diastolic blood pressure 74 mm[Hg] Rani Hemmer PA Work Phone: [facility] 03-23-2024 13:40-0500 Heart rate 75 /min Rani Hemmer PA Work Phone: [facility] 03-23-2024 13:40-0500 Respiratory rate 16 /min Rani Hemmer PA Work Phone: [facility] 03-23-2024 13:40-0500 SaO2% (BldA) [Mass fraction] 98 % Rani Hemmer PA Work Phone: [facility] 03-23-2024 13:40-0500 Systolic blood pressure 136 mm[Hg] Rani Hemmer PA Work Phone: [facility] 03-01-2024 11:07-0500 Body height 162.6 cm Chavo Benavides MD Work Phone: [facility] 03-01-2024 11:07-0500 Body mass index (BMI) [Ratio] 27.64 kg/m2 Chavo Benavides MD Work Phone: [facility] 03-01-2024 11:07-0500 Body weight 73.03 kg Chavo Benavides MD Work Phone: [facility] 03-01-2024 11:07-0500 Diastolic blood pressure 84 mm[Hg] Chavo Benavides MD Work Phone: [facility] 03-01-2024 11:07-0500 Heart rate 86 /min Chavo Benavides MD Work Phone: [facility] 03-01-2024 11:07-0500 SaO2% (BldA) [Mass fraction] 96 % Chavo Benavides MD Work Phone: [facility] 03-01-2024 11:07-0500 Systolic blood pressure 132 mm[Hg] Chavo Benavides MD Work Phone: [facility] Healthcare Encounters Encounter Date Encounter Type Care Provider Facility Start: 09-10-2024 End: 09-13-2024 Refill Chavo Benavides MD Work Phone: [facility] Comment on above: Gastro-esophageal re flux disease without esophagitis Start: 09-09-2024 End: 09-09-2024 Bamboo flowsheet Tanisha Mackey PLANT MAINTENANCE ENGINEER Work Phone: [facility] Start: 09-09-2024 End: 09-09-2024 Bamboo flowsheet Tanisha Mackey PLANT MAINTENANCE ENGINEER Work Phone: [facility] Start: 09-09-2024 End: 09-09-2024 Office outpatient visit 25 minutes Tanisha Mackey PLANT MAINTENANCE ENGINEER Work Phone: [facility] Comment on above: Acute left otitis me aydin (Primary Dx) Start: 09-09-2024 End: 09-09-2024 ambulatory TANISHA MACKEY Not Available Start: 09-07-2024 End: 09-07-2024 ambulatory [facility] Work Phone: Start: 09-07-2024 End: 09-07-2024 Patient encounter procedure [facility] [place] Work Phone: Start: 08-30-2024 End: 08-30-2024 Bamboo flowsheet Chavo Benavides MD Work Phone: [facility] Start: 08-30-2024 End: 08-30-2024 Bamboo flowsheet Chavo Benavides MD Work Phone: [facility] Start: 08-30-2024 End: 08-30-2024 Assay of hemosiderin, quant Chavo Benavides MD Work Phone: [facility] Start: 08-30-2024 End: 08-30-2024 Patient encounter procedure Chavo Benavides MD Work Phone: [facility] Comment on above: Routine general medi sandra examination at health care facility (Primary Dx); ACP (advance care planning); Adjustment disorder with mixed anxiety and depressed mood (CMS/HCC); Other chronic pain; Mixed hyperlipidemia (CMS/HCC); Essential hypertension (CMS/HCC); Generalized anxiety disorder (CMS/HCC); Primary osteoarthritis of left knee; Osteopenia, unspecified location; Gastroesophageal reflux disease without esophagitis Start: 08-30-2024 End: 08-30-2024 ambulatory CHAVO BENAVIDES Not Available Start: 08-16-2024 End: 08-16-2024 Office outpatient visit 15 minutes Karly Miller LEHR LOADER-COMPUTER SUPPORT ANALYST Work Phone: [facility] Comment on above: Seborrheic keratosis ; Lentigines; Blepharitis of lower eyelid; Capillary angioma; History of squamous cell carcinoma of skin Start: 08-16-2024 End: 08-16-2024 Bamboo flowsheet Karly A Annalisaer LEHR LOADER-COMPUTER SUPPORT ANALYST Work Phone: [facility] Start: 08-16-2024 End: 08-16-2024 Bamboo flowsheet Karly A Felter LEHR LOADER-COMPUTER SUPPORT ANALYST Work Phone: [facility] Start: 08-16-2024 End: 08-16-2024 ambulatory KARLY MILLER Not Available Start: 08-10-2024 End: 08-10-2024 Patient encounter procedure Christo Chew MD Work Phone: [facility] Comment on above: Encounter for gyneco logical examination without abnormal finding (Primary Dx); Encounter for screening mammogram for malignant neoplasm of breast; Osteoporosis, post-menopausal (CMS/HCC); Postmenopausal atrophic vaginitis; Chronic vaginitis; Encounter for screening for cervical cancer Start: 08-10-2024 End: 08-10-2024 Patient encounter status Christo Chew MD Work Phone: [facility] Work Phone: Start: 08-10-2024 End: 08-10-2024 ambulatory CHRISTO CHEW Not Available Start: 07-29-2024 End: 07-29-2024 Bamboo flowsheet Rani Otto PA Work Phone: [facility] Start: 07-29-2024 End: 07-29-2024 Bamboo flowsheet Rani Otto PA Work Phone: [facility] Start: 07-29-2024 End: 07-29-2024 Office outpatient visit 15 minutes Rani SY Work Phone: [facility] Comment on above: Chest pain, unspecif ied type (Primary Dx); Stress reaction; Recurrent cold sores; Essential hypertension (CMS/HCC) Start: 07-29-2024 End: 07-29-2024 ambulatory RANI OTTO Not Available Start: 07-27-2024 End: 07-29-2024 Refill Esperanza Zamora MA [facility] Comment on above: Recurrent cold sores Start: 07-13-2024 End: 07-13-2024 Bamboo flowsheet Rani Otto PA Work Phone: [facility] Start: 07-13-2024 End: 07-13-2024 Bamboo flowsheet Rani Otto PA Work Phone: [facility] Start: 07-13-2024 End: 07-13-2024 Office outpatient visit 25 minutes Rani Otto PA Work Phone: [facility] Comment on above: Recurrent cold sores (Primary Dx); Generalized anxiety disorder (CMS/HCC); Adjustment disorder with mixed anxiety and depressed mood (CMS/HCC); Other chronic pain; Primary insomnia Start: 07-13-2024 End: 07-13-2024 ambulatory RANI OTTO Not Available Start: 07-12-2024 End: 07-12-2024 Clinisync Result Encounter Chavo Benavides MD Work Phone: [facility] Unsolicited Start: 07-12-2024 End: 07-12-2024 Clinisync Result Encounter Chavo Benavides MD Work Phone: [facility] Unsolicited Start: 06-07-2024 End: 06-07-2024 Refill Chavo Benavides MD Work Phone: [facility] Comment on above: Insomnia, unspecifie d Start: 03-23-2024 End: 03-23-2024 Bamboo flowsheet Rani Otto PA Work Phone: [facility] Start: 03-23-2024 End: 03-23-2024 Bamboo flowsheet Rani Otto PA Work Phone: [facility] Start: 03-23-2024 End: 03-23-2024 Office outpatient visit 15 minutes Rani Otto PA Work Phone: [facility] Comment on above: Primary 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 (Primary Dx); Acute pain of left knee Start: 03-23-2024 End: 03-23-2024 ambulatory RANI OTTO Not Available Start: 03-01-2024 End: 03-01-2024 Bamboo [...] (CMS/HCC) Start: 03-01-2024 End: 03-01-2024 ambulatory CHAVO Castorena BENAVIDES Not Available Start: 11-01-2023 End: 11-03-2023 ambulatory KARLY MILLER Not Available Start: 10-27-2023 End: 10-27-2023 ambulatory CHAVO Castorena BETSY Not Available Start: 05-22-2023 Refill Chavo Benavides MD Work Phone: [facility] Comment on above: Insomnia, unspecifie d Start: 06-27-[address] DELVIS DEGROOT Facili ty:[facility] Start: 03-28-2022 End: 03-29-[address] DELVIS DEGROOT Facility:[facility] Start: 12-13-2021 End: 12-14-[address] DELVIS DEGROOT Facility:[facility] Start: 11-15-2021 Encounter for preprocedural laboratory examination DR DELVIS DEGROOT [facility] Start: 11-13-2021 End: 11-13-[address] DELVIS [...] Date Procedure Procedure Detail Performing Clinician Start: 07-12-2024 MM TOMOSYNTHESIS SCREENING BI Chavo Benavides MD Work Phone: Start: 07-12-2024 Mammography Chavo Benavides MD Work Phone: Start: 06-13-2023 Mammography Chavo Benavides MD Work Phone: Start: 09-24-2022 H/O: hysterectomy History of hysterectomy Chavo Benavides MD Work Phone: Start: 07-11-2022 Colonoscopy Chavo Benavides MD Work Phone: Start: 04-02-2021 Mammography Chavo Benavides MD Work Phone: Plan of Treatment Date Care Activity Detail Author Start: 07-11-2032 Screening for malign ant neoplasm of colon [facility] Start: 08-30-2025 Medicare Annual Wellness (AWV) Medicare Annual Wellness (AWV) [facility] Start: 08-16-2025 End: 08-16-2025 Patient encounter procedure 08/16/2025 11:05 AM EDT Office Visit [facility] [address] [place] [phone] Karly Miller APRN-COMPUTER SUPPORT ANALYST [address] [place] [address] [facility] Start: 08-15-2025 End: 08-15-2025 Patient encounter procedure 08/15/2025 9:15 AM EDT Office Visit [facility] [address] [place] [phone] Christo Chew MD [address] [place] [address] [facility] Start: 07-12-2025 Screening for malign ant neoplasm of breast Mammogram [facility] Start: 10-26-2024 Medicare Annual Wellness (AWV) Medicare Annual Wellness (AWV) [facility] Start: 09-09-2024 End: 09-09-2024 Patient encounter procedure 09/09/2024 9:30 AM EDT Office Visit [facility] [address] [facility] [address] [place] [address] Tanisha Mackey, PLANT MAINTENANCE ENGINEER [address] [facility] [address] [place] [address] Arrived [facility] Comment on above: Arrived Start: 08-30-2024 End: 08-30-2025 Comprehensive metabolic 2000 panel - Serum or Plasma Comprehensive metabolic panel Lab Routine Essential hypertension (CMS/HCC) Osteopenia, unspecified location Expected: 08/30/2024 (Approximate), Expires: 08/30/2025 [facility] Comment on above: Expected: 08/30/2024 (Approximate), Expires: 08/30/2025 Start: 08-30-2024 End: 08-30-2025 Lipid 1996 panel - Serum or Plasma Lipid panel Lab Routine Mixed hyperlipidemia (CMS/HCC) Expected: 08/30/2024 (Approximate), Expires: 08/30/2025 [facility] Comment on above: Expected: 08/30/2024 (Approximate), Expires: 08/30/2025 Start: 08-30-2024 End: 08-30-2025 Thyrotropin [Units/volume] in Serum or Plasma TSH Lab Routine Essential hypertension (CMS/HCC) Osteopenia, unspecified location Expected: 08/30/2024 (Approximate), Expires: 08/30/2025 [facility] Comment on above: Expected: 08/30/2024 (Approximate), Expires: 08/30/2025 Start: 08-30-2024 End: 08-30-2025 Thyroxine (T4) free [Mass/volume] in Serum or Plasma T4, free Lab Routine Essential hypertension (CMS/HCC) Osteopenia, unspecified location Expected: 08/30/2024 (Approximate), Expires: 08/30/2025 [facility] Comment on above: Expected: 08/30/2024 (Approximate), Expires: 08/30/2025 Start: 08-30-2024 End: 08-30-2024 Patient encounter procedure [facility] Comment on above: Arrived Start: 08-16-2024 End: 08-16-2024 Patient encounter procedure 08/16/2024 2:20 PM EDT Office Visit [facility] [address] [place] [phone] Karly Miller APRN-JEREMIE [address] [place] [address] Arrived [facility] Comment on above: Arrived Start: 08-10-2024 End: 08-10-2024 Patient encounter procedure 08/10/2024 9:15 AM EDT Office Visit [facility] [address] [place] [phone] Christo Chew MD [address] [place], [place] [id number] [facility] Start: 07-29-2024 End: 07-29-2024 Patient encounter procedure 07/29/2024 11:30 AM EDT Office Visit [facility] [address] [place] [address] Rani Otto PA [address] [place] [address] Arrived [facility] Comment on above: Arrived Start: 07-13-2024 End: 07-13-2024 Patient encounter procedure [facility] Comment on above: Arrived Start: 06-12-2024 Screening for malign ant neoplasm of breast Mammogram [facility] Start: 03-23-2024 End: 03-23-2024 Patient encounter procedure 03/23/2024 1:30 PM EST Office Visit [facility] [address] [place] [address] Rani Otto, PA [address] [place] [address] Arrived [facility] Comment on above: Arrived Start: 10-25-2023 Medicare Annual Wellness (AWV) Medicare Annual Wellness (AWV) [facility] Start: 06-19-2023 End: 06-19-2023 Patient encounter procedure 06/19/2023 10:15 AM EST Office Visit [facility] [address] [place] [address] Christo Chew MD [address] [place] [address] [facility] Start: 04-02-2022 Screening for malign ant neoplasm of breast Mammogram [facility] Start: 1950 Screening for malign ant neoplasm of colon [facility] CBC W Auto Different ial panel - Blood CBC and differential Lab Routine Mixed hyperlipidemia (CMS/HCC) Essential hypertension (CMS/HCC) Gastroesophageal reflux disease without esophagitis Ordered: 08/30/2024 [facility] Work Phone: Comment on above: Ordered: 08/30/2024 GENITAL MYCOPLASMAS SHERYL, SWAB GENITAL MYCOPLASMAS SHERYL, SWAB Pathology and Cytology Routine Postmenopausal atrophic vaginitis Chronic vaginitis Encounter for gynecological examination without abnormal finding Ordered: 08/10/2024 [facility] Work Phone: Comment on above: Ordered: 08/10/2024 IGP, APT HPV,RFX 16/18,45 IGP, APT HPV,RFX 16/18,45 Lab Routine Encounter for gynecological examination without abnormal finding Encounter for screening for cervical cancer Ordered: 08/10/2024 [facility] Comment on above: Ordered: 08/10/2024 NuSwab Vaginitis Plu s (VG+) NuSwab Vaginitis Plus (VG+) Microbiology Routine Postmenopausal atrophic vaginitis Chronic vaginitis Encounter for gynecological examination without abnormal finding Ordered: 08/10/2024 [facility] Comment on above: Ordered: 08/10/2024 Immunizations Immunization Date Immunization Notes Care Provider Fa cili 01-30-2024 ABRYSVO - Respirator y syncytial virus (RSV), vaccine, bivalent, protein subunit RSV prefusion F, diluent reconstituted, 0.5 mL, PF Chavo Benavides MD Work Phone: [facility] 01-21-2024 influenza, high dose seasonal, preservative-free Chavo Benavides MD Work Phone: [facility] 01-18-2023 Influenza, High-dose Seasonal, Quadrivalent, Preservative Free Chavo Benavides MD Work Phone: [facility] Work Phone: 01-28-2022 Influenza, High-dose Seasonal, Quadrivalent, Preservative Free Chavo Benavides MD Work Phone: [facility] 01-30-2021 Influenza, High-dose Seasonal, Quadrivalent, Preservative Free Chavo Benavides MD Work Phone: [facility] 02-14-2020 influenza, injectabl e, quadrivalent, preservative free Chavo Benavides MD Work Phone: [facility] 01-26-2020 influenza, seasonal, injectable Chavo Benavides MD Work Phone: [facility] 01-01-2020 Influenza, High-dose Seasonal, Quadrivalent, Preservative Free Chavo Benavides MD Work Phone: [facility] 10-18-2019 pneumococcal polysaccharide vaccine, 23 valent Chavo Benavides MD Work Phone: [facility] 02-05-2019 Seasonal, quadrivale nt, recombinant, injectable influenza vaccine, preservative free Chavo Benavides MD Work Phone: [facility] 01-26-2018 Influenza, High-dose Seasonal, Quadrivalent, Preservative Free Chavo Benavides MD Work Phone: [facility] 01-31-2017 Influenza, High-dose Seasonal, Quadrivalent, Preservative Free Chavo Benavides MD Work Phone: [facility] 06-18-2016 influenza, injectabl e, quadrivalent, preservative free Chavo Benavides MD Work Phone: [facility] 01-25-2016 influenza, injectabl e, quadrivalent, preservative free Chavo Benavides MD Work Phone: [facility] 12-19-2015 zoster vaccine, live Chavo Benavides MD Work Phone: [facility] 09-14-2015 pneumococcal conjuga te vaccine, 13 valent Chavo Benavides MD Work Phone: [facility] Payers Date Payer Category Payer [facility] [id number] 2023 Medicare [employer] [address] [id number] 2023-Present [address] [place] [address] [id number] 2022 Medicare (Managed Care) [id number]. [id number] 2022 Medicare [id number] 1959 Unknown [id number] 1950 Unknown [id number] 2.16.840.1.207541.3.579.2. 593 1950 Unknown [id number] 2.16.840.1.043404.3.579.2. 593 1950 Unknown [id number] 2.16.840.1.323786.3.579.2. 593 1950 Unknown [id number] 2.16.840.1.680798.3.579.2. 593 1950 Unknown [id number] 2.16.840.1.732475.3.579.2. 593 1950 Unknown [id number] 2.16.840.1.710318.3.579.2. 593 1950 Unknown [id number] 2.16.840.1.537033.3.579.2. 593 1950 Unknown [id number] 2.16.840.1.825268.3.579.2. 593 1950 Unknown [id number] 2.16.840.1.302829.3.579.2. 593 1950 Unknown [id number] 2.16.840.1.141615.3.579.2. 593 1950 Unknown [id number] 2.16.840.1.034260.3.579.2. 593 1950 Unknown [id number] 2.16.840.1.957743.3.579.2. 593 1950 Unknown [id number] 2.16.840.1.854711.3.579.2. 593 1950 Unknown [id number] 2.16.840.1.498066.3.579.2. 1259 1950 Unknown [id number] 2.16.840.1.005802.3.579.2. 1259 1950 Unknown [id number] 2.16.840.1.876819.3.579.2. 1259 1950 Unknown [id number] 2.16.840.1.527119.3.579.2. 1259 1950 Unknown [id number] 2.16.840.1.361340.3.579.2. 1259 1950 Unknown [id number] 2.16.840.1.340813.3.579.2. 1259 1950 Unknown [id number] 2.16.840.1.154184.3.579.2. 1259 1950 Unknown [id number] 2.16.840.1.352459.3.579.2. 9 1950 Unknown [id number] 2.16.840.1.932489.3.579.2. 1259 1950 Unknown [id number] 2.16.840.1.604534.3.579.2. 1259 Social History Date Type Detail Facility Start: 12-12-2022 Tobacco smoking status NCIS Never smoked tobacco [facility] Start: 12-12-2022 Tobacco use and exposure Smokeless tobacco non-user [facility] Start: 04-10-2023 End: 09-09-2024 Alcohol intake Current drinker of alcohol (finding) [facility] Start: 04-10-2023 End: 09-09-2024 Alcohol intake [facility] Start: 01-30-2023 End: 09-09-2024 Alcohol Use Disorder Identification Test - Consumption [AUDIT-C] [facility] How often to you hav e a drink containing alcohol? Monthly or less [facility] How many standard dr inks containing alcohol do you have on a typical day? 1 or 2 [facility] How often do you hav e 6 or more drinks on 1 occasion? Less than monthly [facility] Start: 12-09-2022 Alcohol Comment Caffeine intake: 3-4 cups per day coffee, tea [facility] Start: 1950 Sex Assigned At Not on file [facility] Work Phone: Start: 09-07-2024 Sex Female (finding) [facility] Start: 1950 Sex Assigned At Female [facility] Functional Status Date Assessment Result Facility 09-09-2024 Patient Health Quest ionnaire 2 item (PHQ-2) [Reported] [facility] 08-30-2024 Patient Health Quest ionnaire 2 item (PHQ-2) [Reported] [facility] 07-29-2024 Patient Health Quest ionnaire 2 item (PHQ-2) [Reported] [facility] Clinical Notes 06-12-2021 to 09-13-2024 Telephone Encounter - YOSSI Matos - 09/13/2024 10:23 AM EDTTelephone Encounter - YOSSI Matos - 09/13/2024 10:23 AM DARRELLTTanisha Mackey NP - 09/09/2024 9:30 AM EDTPatient Instructions Note Date & Type Note Facility 09-13-2024 Telephone encounter Note Omeprazole sent. [facility] 09-13-2024 Miscellaneous Notes Omeprazole sent. documented in this encounter [facility] 09-09-2024 History of Presen t illness Narrative Images from the original note were not included. Subjective Patient ID: Vivienne Oropeza is a 74 y.o. female who presents for an Urgent Care F/U. Vivienne Presents today for an ear pain, sore throat and a headache form sinus pressure. They did remove wax form her left ear, put she is still having pain. Thsi has been going on for the last 8 days. Current Outpatient Medications on File Prior to Visit Medication Sig Dispense Refill albuterol HFA 90 mcg/act inhaler Inhale 1 puff every 4 (four) hours ALPRAZolam (Xanax) 1 MG tablet Take 0.5 tablets (0.5 mg) by mouth in the morning and 0.5 tablets (0.5 mg) before bedtime. 30 tablet 2 amLODIPine (Norvasc) 10 MG tablet Take 1 tablet (10 mg) by mouth Daily 90 tablet 3 baclofen (Lioresal) 10 MG tablet Take 1 tablet (10 mg) by mouth in the morning and 1 tablet (10 mg) in the evening and 1 tablet (10 mg) before bedtime. 90 tablet 2 Black Cohosh 540 MG capsule Take by mouth chlorhexidine (Peridex) 0.12 % solution Use 15 mL in the mouth or throat in the morning and 15 mL before bedtime. diphenhydrAMINE (Allergy) 25 MG capsule Take 25 mg by mouth every 8 (eight) hours if needed for allergies DULoxetine (Cymbalta) [address] capsule TAKE 1 CAPSULE BY MOUTH DAILY 100 capsule 2 estradiol (Estrace) 0.1 MG/GM vaginal cream Insert 1 gram twice weekly 42.5 g 5 gabapentin (Neurontin) 300 MG capsule Take 1 capsule (300 mg) by mouth in the morning and 1 capsule (300 mg) before bedtime. 180 capsule 0 hydroCHLOROthiazide (HYDRODiuril) 12.5 MG tablet TAKE 1 TABLET BY MOUTH IN THE MORNING 100 tablet 3 loperamide (Imodium) 2 MG capsule Take 2 mg by mouth as needed in the morning and 2 mg as needed at noon and 2 mg as needed in the evening and 2 mg as needed before bedtime for diarrhea. Melatonin 10 MG capsule Take 10 mg by mouth at bedtime meloxicam (Mobic) 15 MG tablet TAKE 1 [...] TABLET BY MOUTH DAILY 100 tablet 3 valACYclovir (Valtrex) 1 g tablet Take 2 tablets (2,000 mg) by mouth in the morning and 2 tablets (2,000 mg) before bedtime. Take within 24-48 hours of onset of symptoms for 1 day. 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 HENT: Positive for congestion, ear pain, sinus pressure and sinus pain. Eyes: Negative. Respiratory: Negative. Cardiovascular: Negative. Gastrointestinal: Negative. Genitourinary: Negative. Skin: Negative. Neurological: Negative. Psychiatric/Behavioral: Negative. Hematological: Negative. Endocrine: Negative. Allergic/Immunologic: Negative. Objective Physical Exam Vitals reviewed. Constitutional: Appearance: She is ill-appearing. HENT: Head: Normocephalic and atraumatic. Right Ear: External ear normal. Left Ear: External ear normal. Ears: Comments: Right TM is dull, cerumen in the canal, Left TM with mild redness, fluid noted, canal clear, no pain or discomfort Nose: Congestion present. Mouth/Throat: Mouth: Mucous membranes are moist. Pharynx: Oropharynx is clear. Eyes: Conjunctiva/sclera: Conjunctivae normal. Cardiovascular: Rate and Rhythm: Normal rate and regular rhythm. Heart sounds: Normal heart sounds. Pulmonary: Effort: Pulmonary effort is normal. Breath sounds: Normal breath sounds. Abdominal: General: Bowel sounds are normal. Palpations: Abdomen is soft. Musculoskeletal: General: Normal range of motion. Cervical back: Normal range of motion. Skin: General: Skin is warm and dry. Neurological: General: No focal deficit present. Mental Status: She is alert and oriented to person, place, and time. Psychiatric: Mood and Affect: Mood normal. Behavior: Behavior normal. Thought Content: Thought content normal. Judgment: Judgment normal. Assessment/Plan 1. Acute left otitis media (Primary) Discussed diagnosis, use of zithromax, medrol and their most common side effects. She is advised to continue the medication as ordered, increase her fluids, rest and follow up if continued or worsening symptoms. - methylPREDNISolone (Medrol Dospak) 4 MG tablets; Follow schedule on package instructions Dispense: 21 tablet; Refill: 0 - azithromycin (Zithromax) 250 MG tablet; 2 tabs x 1 day, 1 tab x 4 days Dispense: 6 tablet; Refill: 0 No follow-ups on file. documented in this encounter [facility] 09-09-2024 Instructions Tanisha Mackey NP - 09/09/2024 9:30 AM EDT Start z pack as ordered Medrol dose pack as ordered documented in this encounter [facility] 08-30-2024 History of Presen t illness Narrative Images from the original note were not included. HPI Med Refill Additional comments: justice Shepard--kiana mejia Last edited by Trisha Burgess LPN on 08/30/2024 10:38 AM. Subjective : Chief Complaint: Vivienne Oropeza is an 74 y.o. female here for an annual wellness visit. I have reviewed and reconciled the history and medication list with the patient today. Current Outpatient Medications Medication Sig Dispense Refill albuterol HFA 90 mcg/act inhaler Inhale 1 puff every 4 (four) hours amLODIPine (Norvasc) 10 MG tablet Take 1 tablet (10 mg) by mouth Daily 90 tablet 3 Black Cohosh 540 MG capsule Take by mouth chlorhexidine (Peridex) 0.12 % solution Use 15 mL in the mouth or throat in the morning and 15 mL before bedtime. diphenhydrAMINE (Allergy) 25 MG capsule Take 25 mg by mouth every 8 (eight) hours if needed for allergies DULoxetine (Cymbalta) [address] capsule TAKE 1 CAPSULE BY MOUTH DAILY 100 capsule 2 estradiol (Estrace) 0.1 MG/GM vaginal cream Insert 1 gram twice weekly 42.5 g 5 gabapentin (Neurontin) 300 MG capsule Take 1 capsule (300 mg) by mouth in the morning and 1 capsule (300 mg) before bedtime. 180 capsule 0 hydroCHLOROthiazide (HYDRODiuril) 12.5 MG tablet TAKE 1 TABLET BY MOUTH IN THE MORNING 100 tablet 3 loperamide (Imodium) 2 MG capsule Take 2 mg by mouth as needed in the morning and 2 mg as needed at noon and 2 mg as needed in the evening and 2 mg as needed before bedtime for diarrhea. Melatonin 10 MG capsule Take 10 mg by mouth at bedtime meloxicam (Mobic) 15 MG tablet TAKE 1 [...] TABLET BY MOUTH DAILY 100 tablet 3 valACYclovir (Valtrex) 1 g tablet Take 2 tablets (2,000 mg) by mouth in the morning and 2 tablets (2,000 mg) before bedtime. Take within 24-48 hours of onset of symptoms for 1 day. 4 tablet 5 zolpidem (Ambien) 10 MG tablet Take 1 tablet (10 mg) by mouth as needed at bedtime for sleep 30 tablet 5 ALPRAZolam (Xanax) 1 MG tablet Take 0.5 tablets (0.5 mg) by mouth in the morning and 0.5 tablets (0.5 mg) before bedtime. 30 tablet 2 baclofen (Lioresal) 10 MG tablet Take 1 tablet (10 mg) by mouth in the morning and 1 tablet (10 mg) in the evening and 1 tablet (10 mg) before bedtime. 90 tablet 2 No current facility-administered medications for this visit. Review of Systems List of current healthcare providers: Patient Care Team: Chavo Benavides MD as PCP - General (Internal Medicine) Medicare Annual Visit Over the past 2 weeks, how often have you been bothered by any of the following problems? Little interest or pleasure in doing things: Not at all Feeling down, depressed, or hopeless: Not at all Patient Health Questionnaire-2 Score: 0 Rios Fall Risk History of Falling, Immediate or Within 3 Months: No Secondary Diagnosis: No Ambulatory Aid: Walks without aid/bedrest/nurse assist Health Risk Assessment Form Do you need help eating, bathing, using the toilet, dressing, or getting around your home?: No Can you prepare your own meals?: Yes Can you do your own housework without help?: Yes Can you shop for groceries or clothes without help?: Yes Do you exercise for about 20 minutes 3 or more days a week?: Yes How confident are you that you can control and manage most of your health problems?: Very confident Can you mange your money, credit cards and accounts, pay bills and taxes?: Yes Cognitive Screening Three Word Registration: Apple, Watch, Kary Clock Drawing: Partial Clock - 1 Three Word Recall: All 3 words correct - 3 Total Score (0-5 Points): 4 Pain Assessment Pain Score: 3 Advance Care Planning Do you have a living will?: No Do you have a medical power of managing attorney?: No Objective : BP 136/70 Pulse 81 Ht 5' 4 Wt 159 lb LMP (LMP Unknown) SpO2 97% BMI 27.29 kg/m No results found. Physical Exam Constitutional: General: She is not [...] Affect: Mood normal. Behavior: Behavior normal. Assessment/Plan : The following health maintenance schedule was reviewed with the patient and provided in printed form in the after visit summary: Health Maintenance Topic Date Due Mammogram 07/12/2025 Medicare Annual Wellness (AWV) 08/30/2025 Colorectal Cancer Screening 07/11/2032 Influenza Vaccine Completed Pneumococcal Vaccine: 65+ Years Completed Advance Care Planning Assessment/Plan Diagnoses and all orders for this visit: Routine general medical examination at health care facility ACP (advance care planning) Adjustment disorder with mixed anxiety and depressed mood (CMS/HCC) - ALPRAZolam (Xanax) 1 MG tablet; Take 0.5 tablets (0.5 mg) by mouth in the morning and 0.5 tablets (0.5 mg) before bedtime. Other chronic pain - baclofen (Lioresal) 10 MG tablet; Take 1 tablet (10 mg) by mouth in the morning and 1 tablet (10 mg) in the evening and 1 tablet (10 mg) before bedtime. Mixed hyperlipidemia (CMS/HCC) - CBC and differential - Lipid panel; Future Essential hypertension (CMS/HCC) - CBC and differential - Comprehensive metabolic panel; Future - TSH; Future - T4, free; Future Generalized anxiety disorder (CMS/HCC) Primary osteoarthritis of left knee Osteopenia, unspecified location - Comprehensive metabolic panel; Future - TSH; Future - T4, free; Future Gastroesophageal reflux disease without esophagitis - CBC and differential Follow up in about 6 months (around 03/02/2025) for Routine F/U. Orders Placed This Encounter Procedures CBC and differential Print requisition?: No Comprehensive metabolic panel Standing Status: Future Number of Occurrences: 1 Expected Date: 08/30/2024 Expiration Date: 08/30/2025 Print requisition?: No Lipid panel Standing Status: Future Number of Occurrences: 1 Expected Date: 08/30/2024 Expiration Date: 08/30/2025 TSH Standing Status: Future Number of Occurrences: 1 Expected Date: 08/30/2024 Expiration Date: 08/30/2025 Print requisition?: No T4, free Standing Status: Future Number of Occurrences: 1 Expected Date: 08/30/2024 Expiration Date: 08/30/2025 Print requisition?: No Electronically signed by Chavo Benavides MD on August 30, 2024 documented in this encounter [facility] 08-10-2024 History of Presen t illness Narrative Images from the original note were not included. Christo Chew MD Obstetrics and Gynecology Patient: Vivienne Oropeza : 1950 (73 y.o.) Yearly Wellness Exam Date: 08/10/2024 Reason for Visit - Chief Complaint Patient presents with Gynecologic Exam Patient present for yearly, patient has no issues or complaints LMP: CONTRACTS INTERN Last DEXA: No history Last Mammogram: 06/13/23 - Neg Colonoscopy: 07/11/22 Clindamycin Boric acid Complaints: Gas History of Present Illness The patient presents for evaluation of flatulence and vaginal odor. Excessive flatulence is reported, which she attributes to her advancing age. No consultation with a director of strategic programs has been sought for this issue. An appointment with her primary care physician is scheduled for next month. Gas Relief is utilized as a treatment measure. A previous consultation with a specialist regarding an eye swelling deemed non-serious. The specialist recommended a procedure for removal, estimated to cost $5000. The size of the affected area has increased since the last visit. Clindamycin has been prescribed, which she finds beneficial but uses sparingly. Boric acid has also been prescribed, and she is uncertain about its continued use. No recent yeast infections are reported. Visit Vitals BP 120/70 (BP Location: Left arm) Wt 156 lb LMP (LMP Unknown) BMI 26.78 kg/m OB Status Hysterectomy Smoking Status Never BSA 1.79 m History of Present Illness, Associated Treatments and Results - OB History Para Term AB Living 3 0 0 0 0 0 SAB IAB Ectopic Multiple Live Births 0 0 0 0 0 # Outcome Date GA Lbr Truong/2nd Weight Sex Type Anes PTL Lv 3 2 1 Review of Systems - Constitutional: Negative. HENT: Negative. Eyes: Negative. Respiratory: Negative. Cardiovascular: Negative. Gastrointestinal: Negative. Endocrine: Negative. Genitourinary: Negative. Musculoskeletal: Negative. Skin: Negative. Allergic/Immunologic: Negative. Neurological: Negative. Hematological: Negative. Psychiatric/Behavioral: Negative. Allergies Allergen Reactions Benazepril Cough Current Outpatient Medications: albuterol HFA 90 mcg/act inhaler, Inhale 1 puff every 4 (four) hours., Disp: , Rfl: ALPRAZolam (Xanax) 1 MG tablet, Take 0.5 tablets (0.5 mg) by mouth in the morning and 0.5 tablets (0.5 mg) before bedtime., Disp: 30 tablet, Rfl: 0 amLODIPine (Norvasc) 10 MG tablet, Take 1 tablet (10 mg) by mouth Daily, Disp: 90 tablet, Rfl: 3 baclofen (Lioresal) 10 MG tablet, TAKE 1 TABLET BY MOUTH THREE TIMES DAILY, Disp: 90 tablet, Rfl: 2 Black Cohosh 540 MG capsule, Take by mouth., Disp: , Rfl: chlorhexidine (Peridex) 0.12 % solution, Use 15 mL in the mouth or throat in the morning and 15 mL before bedtime., Disp: , Rfl: diphenhydrAMINE (Allergy) 25 MG capsule, Take 25 mg by mouth every 8 (eight) hours if needed for allergies., Disp: , Rfl: DULoxetine (Cymbalta) [address] capsule, TAKE 1 CAPSULE BY MOUTH DAILY, Disp: 100 capsule, Rfl: 2 estradiol (Estrace) 0.1 MG/GM vaginal cream, Insert 1 gram twice weekly, Disp: 42.5 g, Rfl: 5 gabapentin (Neurontin) 300 MG capsule, Take 1 capsule (300 mg) by mouth in the morning and 1 capsule (300 mg) before bedtime., Disp: 180 capsule, Rfl: 0 hydroCHLOROthiazide (HYDRODiuril) 12.5 MG tablet, TAKE 1 TABLET BY MOUTH IN THE MORNING, Disp: 100 tablet, Rfl: 3 loperamide (Imodium) 2 MG capsule, Take 2 mg by mouth 4 (four) times a day as needed for diarrhea., Disp: , Rfl: Melatonin 10 MG capsule, Take 10 mg by mouth at bedtime., Disp: , Rfl: meloxicam (Mobic) 15 MG tablet, TAKE 1 TABLET BY MOUTH DAILY, Disp: 100 tablet, Rfl: 3 olmesartan (BENIcar) 20 MG tablet, Take 1 tablet (20 mg) by mouth Daily, Disp: 90 tablet, Rfl: 3 omeprazole (PriLOSEC) [address] capsule, Take 1 capsule (40 mg) by mouth in the morning. Take before meals. Do not crush or chew.., Disp: 90 capsule, Rfl: 3 simvastatin (Zocor) 40 MG tablet, TAKE 1 TABLET BY MOUTH DAILY, Disp: 100 tablet, Rfl: 3 valACYclovir (Valtrex) 1 g tablet, Take 2 tablets (2,000 mg) by mouth in the morning and 2 tablets (2,000 mg) before bedtime. Take within 24-48 hours of onset of symptoms for 1 day., Disp: 4 tablet, Rfl: 5 zolpidem (Ambien) 10 MG tablet, Take 1 tablet (10 mg) by mouth as needed at bedtime for sleep, Disp: 30 tablet, Rfl: 5 Past Medical History: Diagnosis Date Abnormal uterine bleeding Uterine Fibroid/Lt Adnexal Mass/Poss Endometriosis COVID-19 02/05/2020 Depression ([facility]) Grief reaction History of being hospitalized 02/23/2017 ETOH Intoxication [...] Appendectomy;Disease:Abnml Uterine Bleeding/Uterine Fibroid/Lt Adnexal Mass/Poss Endometriosis Family History Problem Relation Name Age of Onset Cancer Mother Irritable bowel syndrome Mother Melanoma Neg Hx Social History Tobacco Use Smoking Status Never Smokeless Tobacco Never Physical Exam - General appearance, mentation, extraocular movements, facial strength and movement, hearing, upper and lower extremity strength and tone, sensation to gross testing, coordination, and gait are normal or at baseline unless noted below. Physical Exam Constitutional: Appearance: Normal appearance. Genitourinary: Right Labia: No lesions. Left Labia: No lesions. Vaginal cuff intact. Mild vaginal atrophy present. Right Adnexa: not tender and no mass present. Left Adnexa: not tender and no mass present. Cervix is absent. Uterus is absent. Breasts: Right: Normal. No mass or nipple discharge. Left: Normal. No mass or nipple discharge. HENT: Head: Normocephalic and atraumatic. Cardiovascular: Rate and Rhythm: Normal rate and regular rhythm. Pulmonary: Breath sounds: Normal breath sounds. Abdominal: General: There is no distension. Palpations: Abdomen is soft. There is no mass. Tenderness: There is no abdominal tenderness. Musculoskeletal: General: Normal range of motion. Cervical back: Neck supple. Neurological: Mental Status: She is alert and oriented to person, place, and time. Skin: General: Skin is warm and dry. Psychiatric: Mood and Affect: Mood normal. Assessment/Plan ICD-10-CM 1. Encounter for gynecological examination without abnormal finding Z01.419 GENITAL MYCOPLASMAS SHERYL, SWAB IGP, APT HPV,RFX 16/18,45 NuSwab Vaginitis Plus (VG+) 2. Encounter for screening mammogram for malignant neoplasm of breast Z12.31 3. Osteoporosis, post-menopausal ([facility]/HCC) M81.0 4. Postmenopausal atrophic vaginitis N95.2 estradiol (Estrace) 0.1 MG/GM vaginal cream GENITAL MYCOPLASMAS SHERYL, SWAB NuSwab Vaginitis Plus (VG+) 5. Chronic vaginitis N76.1 GENITAL MYCOPLASMAS SHERYL, SWAB NuSwab Vaginitis Plus (VG+) 6. Encounter for screening for cervical cancer Z12.4 IGP, APT HPV,RFX 16/18,45 Assessment & Plan Pap and exam performed. Mammogram ordered Results can be found in MyChart in 7 days Bone health discussed Return 1 year for annual 1. Flatulence. - Discuss issue with primary care physician during next visit in 08/2024. 2. Vaginal odor. - Continue using clindamycin as needed when symptoms arise. - Use boric acid cream if odor returns. - Send prescription for boric acid to pharmacy [facility] ordered Pt is recently and happily newly dating Estrace refill ordered . documented in this encounter [facility] 07-29-2024 Telephone encounter Note Discussed with pt at her appt today. [facility] 07-29-2024 Miscellaneous Notes Discussed with pt at her appt today. No, the dosing was correct. The dosing for recurrent cold sores is 2 grams (two tablets) twice a day for one day at onset of symptoms. After that initial day of dosing, the symptoms will gradually improve over the course of about a week. It is only to help decrease the viral load in the body to decrease intensity and duration of symptoms. This is Vivienne Cano, [id number]. The first question I need is valacyclobir1 gram. I need more than 2 tablets. So thank you, Rani. Thank you. Pt is requesting more medication documented in this encounter [facility] 07-29-2024 History of Presen t illness Narrative Images from the original note were not included. HPI Med Refill Additional comments: Valacyclovir to have on hand if she gets another cold sore Last edited by Niesha Perez LPN on 07/29/2024 11:35 AM. Subjective Patient ID: Vivienne Oropeza is a 73 y.o. female who presents for chest pain. Vivienne is present today for evaluation of chest pain. Admits it started on Friday, she got upset and started screaming and her chest started hurting and it is a constant pain. States has some stress in her family. She also states she fell and is not sure if it could have been from the fall that caused her chest to hurt, but felt like that was a different type of pain, admits had too much alcohol. She tried xanax, and it did help. Does have Tylenol that she takes as needed for back pain. Current Outpatient Medications on File Prior to Visit Medication Sig Dispense Refill albuterol HFA 90 mcg/act inhaler Inhale 1 puff every 4 (four) hours. ALPRAZolam (Xanax) 1 MG tablet Take 0.5 tablets (0.5 mg) by mouth in the morning and 0.5 tablets (0.5 mg) before bedtime. 30 tablet 0 amLODIPine (Norvasc) 10 MG tablet Take 1 [...] g 5 gabapentin (Neurontin) 300 MG capsule Take 1 capsule (300 mg) by mouth in the morning and 1 capsule (300 mg) before bedtime. 180 capsule 0 hydroCHLOROthiazide (HYDRODiuril) 12.5 MG tablet TAKE 1 [...] bedtime for sleep 30 tablet 5 [DISCONTINUED] valACYclovir (Valtrex) 1 g tablet Take 2 tablets (2,000 mg) by mouth in the morning and 2 tablets (2,000 mg) before bedtime. Do all this for 1 day. 4 tablet 0 [DISCONTINUED] valACYclovir (Valtrex) 1 g tablet Take 2 tablets (2,000 mg) by mouth in the morning and 2 tablets (2,000 mg) before bedtime. Do all this for 1 day. 4 tablet 0 No current facility-administered medications on file prior [...] Endometriosis COVID-19 02/05/2020 Depression (CMS/HCC) Grief reaction History of being hospitalized 02/23/2017 ETOH Intoxication [...] Fibroid/Lt Adnexal Mass/Poss Endometriosis Visit Vitals BP 126/74 Pulse 80 Resp 16 Ht 5' 4 Wt 156 lb 3.2 oz LMP (LMP Unknown) SpO2 98% BMI 26.81 kg/m OB Status Hysterectomy Smoking Status Never BSA 1.79 m Review of Systems Constitutional: Negative for chills, fatigue and fever. Respiratory: Negative for cough, shortness of breath and wheezing. Cardiovascular: Negative for chest pain, palpitations and leg swelling. Gastrointestinal: Negative for abdominal pain, constipation, diarrhea, nausea and vomiting. Musculoskeletal: Positive for back pain. Skin: Negative for rash. Objective Physical Exam [...] Diagnoses and all orders for this visit: Chest pain, unspecified type ECG completed in the office today and was stable in comparison to ECG from 02/25/2020. No acute changes. Pt has not symptoms at this time. She can contact office if symptoms recur, or go to ER if symptoms worsen. Stress reaction Chest pain began while patient was upset with family and the Xanax did relieve her symptoms. With normal ECG, the chest pain was likely a stress reaction. Recurrent cold sores - valACYclovir (Valtrex) 1 g tablet; Take 2 tablets (2,000 mg) by mouth in the morning and 2 tablets (2,000 mg) before bedtime. Take within 24-48 hours of onset of symptoms for 1 day. Reviewed dosing for cold sores. Reviewed dosing instructions. Did provide pt with a refill on the Valacyclovir to use as needed. Essential hypertension (CMS/HCC) Patient's blood pressure is currently well controlled. Continue with current medications and I will continue to monitor. Goal BP remains less than 130/80. Follow up for Appointment As Scheduled. documented in this encounter [facility] 07-27-2024 Telephone encounter Note No, the dosing was correct. The dosing for recurrent cold sores is 2 grams (two tablets) twice a day for one day at onset of symptoms. After that initial day of dosing, the symptoms will gradually improve over the course of about a week. It is only to help decrease the viral load in the body to decrease intensity and duration of symptoms. [facility] 07-27-2024 Telephone encounter Note This is Vivienne Cano, [id number]. The first question I need is valacyclobir1 gram. I need more than 2 tablets. So thank you, Rani. Thank you. Pt is requesting more medication [facility] 07-13-2024 History of Presen t illness Narrative Images from the original note were not included. HPI Med Refill Additional comments: Valacyclovir - also insurance will not cover Alprazolam so would like a different med for her anxiety. Last edited by Niesha Perez LPN on 07/13/2024 9:35 AM. Subjective Patient ID: Vivienne Oropeza is a 73 y.o. female who presents for sore lip. Vivienne is present today for evaluation of a cold sore. Admits it started on Friday of last week and has been using Valacyclovir but the bottle in 2022. It is improving but still red, swollen, itching off/on. Using Abreva. Current Outpatient Medications on File Prior to [...] Endometriosis COVID-19 02/05/2020 Depression (CMS/HCC) Grief reaction History of being hospitalized 02/23/2017 ETOH Intoxication w/ Inability to Ambulate Hypertension (CMS/HCC) Inflammatory bowel disease 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 Past Surgical History: Procedure Laterality Date APPENDECTOMY BREAST LUMPECTOMY Right 03/03/2020 with needle localization-Wiecek (Benign) BREAST LUMPECTOMY W/ NEEDLE LOCALIZATION Right 2020 benign COLONOSCOPY 11/01/13,07/11/2022 HYSTERECTOMY JOINT ASPIRATION/INJECTION Right [...] Fibroid/Lt Adnexal Mass/Poss Endometriosis Visit Vitals BP 134/82 Pulse 86 Resp 16 Ht 5' 4 Wt 156 lb 3.2 oz LMP (LMP Unknown) SpO2 98% BMI 26.81 kg/m OB Status Hysterectomy Smoking Status Never BSA 1.79 m Review of Systems Constitutional: Negative for chills, fatigue and fever. HENT: See HPI Respiratory: Negative for cough, shortness of breath and wheezing. Cardiovascular: Negative for chest pain, palpitations and leg swelling. Gastrointestinal: Negative for abdominal pain, constipation, diarrhea, nausea and vomiting. Skin: Negative for rash. Psychiatric/Behavioral: The patient is nervous/anxious. Objective Physical Exam Constitutional: General: She is not in acute distress. Appearance: Normal appearance. She is well-developed. HENT: Head: Normocephalic and atraumatic. Mouth/Throat: Lips: Lesions present. Comments: Irregularly shaped healing scabbed lesions, yellow scabs. Consistent with healing cold sores. No active drainage. Mildly erythematous base. Eyes: General: No scleral icterus. Conjunctiva/sclera: Conjunctivae [...] Diagnoses and all orders for this visit: Recurrent cold sores - valACYclovir (Valtrex) 1 g tablet; Take 2 tablets (2,000 mg) by mouth in the morning and 2 tablets (2,000 mg) before bedtime. Do all this for 1 day. Refill provided on the above for pt to have on hand to take as needed the day a cold sore starts. Advised lesions are contagious. Can continue to use Abreva as needed to affected area. Generalized anxiety disorder (CMS/HCC) Anxiety stable at this time with prn Xanax. Adjustment disorder with mixed anxiety and depressed mood (CMS/HCC) - ALPRAZolam (Xanax) 1 MG tablet; Take 0.5 tablets (0.5 mg) by mouth in the morning and 0.5 tablets (0.5 mg) before bedtime. Refill sent in at this time for pt. If not covered by her insurance would plan to change her to Lorazepam 0.5 mg twice daily prn. Other chronic pain - gabapentin (Neurontin) 300 MG capsule; Take 1 capsule (300 mg) by mouth in the morning and 1 capsule (300 mg) before bedtime. OARRS reviewed, Rx sent into patient's pharmacy. Will continue to monitor. Primary insomnia Stable with as needed use of the Ambien. Will continue to refill it for pt as needed for sleep. Follow up in about 3 months (around 10/27/2024) for Medicare Wellness Visit. documented in this encounter [facility] 03-23-2024 History of Presen t illness Narrative Images from the original note were not included. Subjective Patient ID: Vivienne Oropeza is a 73 y.o. female who presents [...] Appointment As Scheduled. documented in this encounter [facility] 03-01-2024 History of Presen t illness Narrative Images from the original note were not included. HPI Results Additional comments: Lab results 10/2023 Med Refill Additional comments: Joannex--kiana mejia Last edited by Trisha Burgess LPN on 03/01/2024 11:10 AM. Subjective Patient ID: Vivienne Oropeza is a 73 y.o. female who presents [...] mL/min/1.73m2 Final BUN/CREATININE RATIO 11/05/2023 SEE NOTE: 6 - (calc) Final Comment: Not Reported: BUN and [...] LDL-C. Randal COURTNEY et al. LIA. 2013;310(19): 9613-4893 ([email or web address] [email or web address] CHOL/HDLC RATIO 11/05/2023 2.3 <5.0 (calc) Final [...] for Routine F/U. documented in this encounter [facility] 08-17-2023 History of Presen t illness Narrative Skin Check Location: Patient requests a skin examination from the waist up Dermatologic history: history of Actinic Keratosis, history of Squamous Cell Carcinoma Last visit: 1 year ago Established patient Other Problem: Puffiness Location: Under eyes Duration: Years Severity: Mild to moderate Treatments tried/failed: None. My have seen a plastic surgeon in the past, but was told the treatment available was cosmetic. Patient does not understand why it would be considered cosmetic. Would like the provider to poke it with a needle and drain it today All pertinent medical history, medications, and allergies were reviewed. General Exam: alert, oriented to person, place, and time, normal affect, well appearing A complete skin exam was offered, pt declined. Areas not examined despite medical recommendation: From the waist down Scalp, Examined Head, Face Examined Neck Examined Chest Examined Back Examined Abdomen Examined Right arm Examined Left arm Examined Hands Examined Digits,nails: Examined Skin Exam 1. SEBORRHEIC KERATOSIS Generalized Stuck on verrucous, variably pigmented papules and plaques. Patient was counseled regarding these benign growths. Removal is normally not necessary, but they may be removed if they are symptomatic or for cosmetic reasons. 2. LENTIGINES Generalized Scattered perez macules in sun-exposed areas. The patient was informed that lentigines are benign pigmented lesions that occur on sun-exposed and sun-damaged skin. No treatment is necessary. Recommended regular use of broad spectrum sunscreen SPF 30 or higher 3. BLEPHARITIS OF LOWER EYELID (2) Left Malar Cheek, Right Malar Cheek Mild underlying pool Would recommend patient see Dr. Gulshan MD for treatment options. May also trial an under eye caffeine serum if desired. 4. CAPILLARY ANGIOMA Trunk Scattered carranza-red papule(s). The patient was informed that angiomas are benign growths on the the skin. No treatment is necessary. 5. HISTORY OF SQUAMOUS CELL CARCINOMA OF SKIN Next Visit: 1 year documented in this encounter [facility] 08-17-2023 History of Presen t illness Narrative Skin Check Location: Patient requests a skin examination from the waist up Dermatologic history: history of Actinic Keratosis, history of Squamous Cell Carcinoma Last visit: 1 year ago Established patient Other Problem: Puffiness Location: Under eyes Duration: Years Severity: Mild to moderate Treatments tried/failed: None. My have seen a plastic surgeon in the past, but was told the treatment available was cosmetic. Patient does not understand why it would be considered cosmetic. Would like the provider to poke it with a needle and drain it today All pertinent medical history, medications, and allergies were reviewed. General Exam: alert, oriented to person, place, and time, normal affect, well appearing A complete skin exam was offered, pt declined. Areas not examined despite medical recommendation: From the waist down Scalp, Examined Head, Face Examined Neck Examined Chest Examined Back Examined Abdomen Examined Right arm Examined Left arm Examined Hands Examined Digits,nails: Examined Skin Exam 1. SEBORRHEIC KERATOSIS Generalized Stuck on verrucous, variably pigmented papules and plaques. Patient was counseled regarding these benign growths. Removal is normally not necessary, but they may be removed if they are symptomatic or for cosmetic reasons. 2. LENTIGINES Generalized Scattered perez macules in sun-exposed areas. The patient was informed that lentigines are benign pigmented lesions that occur on sun-exposed and sun-damaged skin. No treatment is necessary. Recommended regular use of broad spectrum sunscreen SPF 30 or higher 3. BLEPHARITIS OF LOWER EYELID (2) Left Malar Cheek, Right Malar Cheek Mild underlying pool Would recommend patient see Dr. Gulshan MD for treatment options. May also trial an under eye caffeine serum if desired. 4. CAPILLARY ANGIOMA Trunk Scattered carranza-red papule(s). The patient was informed that angiomas are benign growths on the the skin. No treatment is necessary. 5. HISTORY OF SQUAMOUS CELL CARCINOMA OF SKIN Next Visit: 1 year documented in this encounter [facility] 03-28-2022 Note CONSULTATION CONSULTATION DATE: 03/28/2022 HISTORY [...] her pain. Medication per her PCP is All[place] 7.5/325 daily p.r.n., baclofen 10 mg q.h.s., [...] three months' time unless otherwise indicated. [facility] 12-13-2021 Note CONSULTATION PROCEDURE DATE: 12/13/2021 [...] procedure well with no overt complications. [facility] 12-13-2021 Note CONSULTATION CONSULTATION DATE: 12/13/2021 HISTORY OF PRESENT ILLNESS: This is a pleasant, 71-year-old female returning to the clinic status post right sided SI RFA completed on 11/13/2021. The patient states she does have some improvement but, at this time, it is not significant. She did have an episode of riding on a golf cart recently with the Loccit (ML4D) and she reports being what she calls [...] mg q.h.s., gabapentin 200 mg daily and All[place]ale 7.5/325 p.r.n. per her PCP. She denies [...] three months' time unless otherwise indicated. [facility] 10-11-2021 Note CONSULTATION CONSULTATION DATE: 10/11/2021 [...] will be followed in the office post-procedure. [facility] Signed and Approved by: VANESSA GABRIEL . 10/18/2021 16:26:00 [facility] 08-30-2021 Note CONSULTATION CONSULTATION DATE: 08/30/2021 This [...] q.h.s., Cymbalta, gabapentin 300 mg q. day, All[place]ale 5/325 b.i.d. and Mobic. REVIEW OF SYSTEMS, [...] followed up in the office post procedure. [facility] Signed and Approved by: VANESSA GABRIEL . 09/03/2021 15:08:00 [facility] 07-19-2021 Note CONSULTATION PAIN MANAGEMENT CONSULTATION HISTORY [...] her pain. Current medications include Aleve p.r.n., Allendale 7.5/325 daily p.r.n. per her PCP, baclofen, [...] encourage her to not rely on the Allendale for pain, but instead to use her NSAIDs as prescribed. Patient agrees with the plan of care and would like to proceed. [facility] Signed and Approved by: VANESSA GABRIEL . 07/25/2021 13:49:00 [facility] 06-12-2021 Note CONSULTATION PAIN MANAGEMENT CONSULTATION Consultation [...] aching sensation. She takes Motrin 600 mg, [place] 5/325 on a rare occasion, baclofen 10 mg, magnesium, multivitamin and also has gabapentin 300 mg daily, Mobic, Alprazolam 1 mg daily and duloxetine 30 mg. PAST MEDICAL HISTORY / PAST SURGICAL HISTORY / REVIEW OF SYSTEMS are noted on the chart along with the MEDICATION LIST, ALLERGIES, and radiological images, including an MRI dated 2018, which shows significant pathology in her lumbar [...] like to proceed. CC: Chavo Benavides M.D. [facility] Signed and Approved by: DR DELVIS DEGROOT . 06/19/2021 10:00:00 [facility] 06-12-2021 Note OPERATIVE NOTE PREOPERATIVE DIAGNOSIS: Gluteal [...] Will be followed up in the office. [facility] Signed and Approved by: DR DELVIS DEGROOT . 06/19/2021 10:00:00 [facility] Evaluation note Diagnosis Insomnia, unspecified [facility] encounter [facility] Diagnosis Ectropion of both lower eyelids, unspecified ectropion type- Primary Adjustment disorder with mixed anxiety and depressed mood (CMS/HCC) Adjustment disorder with mixed anxiety and depressed mood Essential hypertension (CMS/HCC) Unspecified essential hypertension Mixed hyperlipidemia (CMS/HCC) Mixed hyperlipidemia [facility] Diagnosis Primary osteoarthritis of left knee- Primary Acute pain of left knee documented in this encounter [facility]* Diagnosis Insomnia, unspecified documented [facility] Diagnosis Recurrent cold sores- Primary Herpes simplex without mention of complication Generalized anxiety disorder (CMS/HCC) Generalized anxiety disorder Adjustment disorder with mixed anxiety and depressed mood (CMS/HCC) Adjustment disorder with mixed anxiety and depressed mood Other chronic pain Primary insomnia Persistent disorder of initiating or maintaining sleep documented in this encounter [facility]* Diagnosis Chest pain, unspecified type- Primary Stress reaction Unspecified acute reaction to stress Recurrent cold sores Herpes simplex without mention of complication Essential hypertension (CMS/HCC) Unspecified essential hypertension documented in this encounter [facility] note* Diagnosis Recurrent cold sores Herpes simplex without mention of complication documented in this encounter [facility]* Diagnosis Encounter for gynecological examination without abnormal finding- Primary Encounter for screening mammogram for malignant neoplasm of breast Osteoporosis, post-menopausal (CMS/HCC) Senile osteoporosis Postmenopausal atrophic vaginitis Chronic vaginitis Unspecified vaginitis and vulvovaginitis Encounter for screening for cervical cancer documented in this encounter [facility]* Diagnosis Seborrheic keratosis Lentigines Blepharitis of lower eyelid Capillary angioma Nevus, non-neoplastic History of squamous cell carcinoma of skin Personal history of other malignant neoplasm of skin documented in this encounter [facility]* Diagnosis Routine general medical examination at health care facility- Primary Routine general medical examination at a health care facility ACP (advance care planning) Other specified counseling Adjustment disorder with mixed anxiety and depressed mood (CMS/HCC) Adjustment disorder with mixed anxiety and depressed mood Other chronic pain Mixed hyperlipidemia (CMS/HCC) Mixed hyperlipidemia Essential hypertension ([facility]/HCC) Unspecified essential hypertension Generalized anxiety disorder ([facility]/HCC) Generalized anxiety disorder Primary osteoarthritis of left knee Osteopenia, unspecified location Gastroesophageal reflux disease without esophagitis Esophageal reflux documented in this encounter [facility] Healthcare[facility] note* Diagnosis Acute left otitis media- Primary documented in this encounter [facility] HealthcareEvaluation noteNo assessment information availableK[facility] Work Phone: Evaluation note* Diagnosis Gastro-esophageal reflux disease without esophagitis documented in this encounter [facility] Healthcare Summary Purpose Family History No Family History Records FoundNo Family History Records Found Advance Directives Advance Directive Response Recorded Date/ Time Advance Directives No September 07 9:03am Chief Complaint and Reason for Visit Chief Complaint Admit Date ear pain September 07, 2024 9:04a m Additional Source Comments INFORMATION SOURCE (unrecogn ized section and content) DATE CREATED AUTHOR 04/04/2022 [facility] DATE CREATED AUTHOR AUTHOR'S ORGANIZ ATION 09/11/2024 [facility] EPIC Reason for Visit (unrecogniz ed section and content) Reason Comments Med Refill Reason Comments Hypertension Results Lab results 10/2023 Med Refill Xanax--dm [place] Reason Onset Date Comments Med Refill 06/07/2024 Reason Comments Med Refill Valacyclovir - also insurance will not cover Alprazolam so would like a different med for her anxiety. Reason Comments Med Refill Valacyclovir to have on hand if she gets another cold sore Reason Onset Date Comments Med Refill 07/27/2024 Reason Comments Gynecologic Exam Patient present for yearly, patient has no issues or complaints Reason Comments Medicare Annual Wellness Visit Subsequen t Med Refill Xanax, bacloen--dm c lyde Care Teams (unrecognized sec tion and content) Software Specialist Relationship Specialty Start Date End Date Chavo Benavides MD [address] [place] [address] PCP - General Internal Medicine 10/22/22 Software Specialist Relationship Specialty Start Date End Date Chavo Benavides MD [address] [place] [address] PCP - General Internal Medicine 10/22/22 Software Specialist Relationship Specialty Start Date End Date Chavo Benavides MD [address] [place] [address] PCP - General Internal Medicine 10/22/22 Software Specialist Relationship Specialty Start Date End Date Chavo Benavides MD [address] [place] [address] PCP - General Internal Medicine 10/22/22 Software Specialist Relationship Specialty Start Date End Date Chavo Benavides MD [address] [place] [address] PCP - General Internal Medicine 10/22/22 Software Specialist Relationship Specialty Start Date End Date Chavo Benavides MD [address] [place] [address] PCP - General Internal Medicine 10/22/22 Software Specialist Relationship Specialty Start Date End Date Chavo Benavides MD [address] [place] [address] PCP - General Internal Medicine 10/22/22 Software Specialist Relationship Specialty Start Date End Date Chavo Benavides MD [address] [place] [address] PCP - General Internal Medicine 10/22/22 Software Specialist Relationship Specialty Start Date End Date Chavo Benavides MD [address] [place] [address] PCP - General Internal Medicine 10/22/22 Software Specialist Relationship Specialty Start Date End Date Chavo Benavides MD [address] [place] [address] PCP - General Internal Medicine 10/22/22 Software Specialist Relationship Specialty Start Date End Date Chavo Benavides MD [address] [place] [address] PCP - General Internal Medicine 10/22/22 Software Specialist Relationship Specialty Start Date End Date Chavo Benavides MD [address] [place] [address] PCP - General Internal Medicine 10/22/22 Software Specialist Relationship Specialty Start Date End Date Chavo Benavides MD [address] [place] [address] PCP - General Internal Medicine 10/22/22 Software Specialist Relationship Specialty Start Date End Date Chavo Benavides MD [address] [facility] [address] [place] [address] PCP - General Internal Medicine 10/22/22 Software Specialist Relationship Specialty Start Date End Date Chavo Benavides MD [address] [facility] [address] [place] [address] PCP - General Internal Medicine 10/22/22 Team Status: Active Member Role Status Dates NON STAFF Primary Care Provider Active Team Status: Inactive Member Role Status Dates Gisele Cutler , LEHR LOADER Attending Provider Active Start: September 07, 2024 End: September 07, 2024 NON STAFF Primary Care Provider Active Start: September 07, 2024 End: September 07, 2024 Goals (unrecognized section and content) Goals may be documented in a n alternate section FOR RECORDS PERTAINING TO PATIENTS WHO ARE [...] BE BASED ON THE PRIMARY CLINICAL RECORDS. [facility]. provides no warranty or guarantee of the accuracy or completeness of information in this document.
--- OUTSIDE RECORDS SUMMARY | 2024-10-30 11:28 | XMS_ITS | Clinical Summary ---
Author Organization [employer] tem Address [id number] [address] [place] [address] Care Team Providers Care Art Objects Salesperson Name Role Phone Chavo Benavides MD Primary Care Provider [phone] Allergies No known active allergies Medications albuterol (PROVENTIL HFA;VENTOLIN HFA) 90 mcg/actuation inhaler INHALE 1 PUFF BY MOUTH EVERY 4 HOURS NEEDED 05/27/2022 Active ALPRAZolam (XANAX) 1 mg tablet TAKE 1/2 (ONE-HALF) OF A TABLET BY MOUTH TWICE DAILY NEEDED 05/24/2022 Active amLODIPine-huan zepril (LOTREL) 5-20 mg per capsule Take by mouth daily. 05/24/2022 Active baclofen (LIORESAL) 10 mg tablet Take 1 tablet (10 mg total) by mouth 3 (three) times a day. 05/16/2022 Active DULoxetine (CYMBALTA) 60 mg capsule Take 1 capsule (60 mg total) by mouth in the morning. 04/24/2022 Active gabapentin (NEURONTIN) 300 mg capsule Take 1 capsule (300 mg total) by mouth in the morning and 1 capsule (300 mg total) before bedtime. 04/29/2022 Active loperamide (IMODIUM) 2 mg capsule TAKE 1 CAPSULE BY MOUTH FOUR TIMES DAILY NEEDED 05/24/2022 Active meloxicam (MOBIC) 15 mg tablet Take 1 tablet (15 mg total) by mouth in the morning. 05/24/2022 Active omeprazole (PriLOSEC) 20 mg capsule TAKE 1 CAPSULE BY MOUTH 30 mins BEFORE morning meal 05/24/2022 Active simvastatin (ZOCOR) 40 mg tablet Take 1 tablet (40 mg total) by mouth in the morning. 05/24/2022 Active zolpidem (AMBIEN) 10 mg tablet Take 1 tablet (10 mg total) by mouth nightly as needed. 05/24/2022 Active Active Problems No known active problems Family History Medical History Relation Name Comments Heart attack Father Heart disease Father Cancer Mother Heart disease Sister Relation Name Status Comments Father Mother Sister Alive Social History Tobacco Use Types Packs/Day Years Used Date Smoking Tobacco: Never Smokeless Tobacco: Never Tobacco Cessation:Counseling Given: Not Answered Alcohol Use Standard Drinks/Week Comments Not Asked 0 (1 standard drink = 0.6 oz pur e alcohol) 1-2 GLASSES OF WINE A WEEK Childcare Answer Date Recorded Childcare Unknown 09/23/2018 Employment Answer Date Recorded Employment Unknown 09/23/2018 Comments No Sex and Gender Information Value Date Recorded Sex Assigned at Not on file Legal Sex Female 11:28 AM EDT Gender Identity Not on file Sexual Orientation Not on file Last Filed Vital Signs Vital Sign Reading Time Taken Comments Blood Pressure 115/65 07/11/2022 10:45 AM EDT Pulse 73 07/11/2022 10:46 AM EDT Temperature - - Respiratory Rate 21 07/11/2022 10:46 AM EDT Oxygen Saturation 100% 07/11/2022 10:40 AM EDT Inhaled Oxygen Concentration - - Weight 75.3 kg (166 lb) 07/11/2022 8:19 AM EDT Height 160 cm (5' 3 ) 07/11/2022 8:19 AM EDT Body Mass Index 29.41 07/11/2022 8:19 AM EDT Plan of Treatment Health Maintenance Due Date Last Done Comments Depression Screening 1962 Tobacco Screening 1962 DTaP,Tdap and Td Vaccines (1 - Tdap) 1969 Fall Risk Screening 08/26/2015 Zoster (Shingles) Vaccine (2 of 3) 02/13/2016 12/19/2015 Adult BMI Screening 07/12/2023 07/11/2022 COVID-19 Vaccine (3 - 2023-2 5 season) 2023 09/03/2020, 08/04/2020 Influenza Vaccine 12/13/2024 01/28/2022, , 02/14/2020, Additional history exists Colonoscopy 07/11/2032 07/11/2022, 07/11/2022 Medical Devices Not on file Procedures Procedure Name Priority Date/Time Associated Diagnosis Comments PROVATION COLONOSCOPY Routine 07/11/2022 8:37 AM EDT from Last 3 Months or Most Recently Relevant to Health Maintenance Results * Colonoscopy Report (07/11/2022 8:37 AM EDT) Narrative SYSTEMGENERATED, DOCUMENTATION - 07/11/2022 8:37 AM EDT This order has been auto-finalized for image and report archival in PACs. *For full report details, please reach out to your physician. This image is visible to you in MyChart.* us Vijay Maurice DO IMG OR IMG ORDERABLES Final Result from Last 3 Months or Most Recently Relevant to Health Maintenance Insurance [employer] Care Teams Art Objects Salesperson Relationship Specialty Start Date End Date Chavo Benavides MD [address] [facility] [address] [place] [id number] PCP - General Internal Medicine 05/28/22
--- NOTE | 2024-10-30 12:20 | ED.HEATRA1 ---
HPI HPI - Head Injury General Chief complaint: Head Injury Stated complaint: FALL Time Seen by Provider: 10/30/24 11:12 Source: patient Mode of arrival: walk-in Limitations: no limitations History of Present Illness HPI Narrative: The patient is coming to the ER 4 days after she had a fall, she mentioned that she was just drinking and she fell backwards she denies any other injuries She denies any other concerns as well and she mentioned that she have a very mild headache that is not bad as per her wording Related Data Allergies Allergy/AdvReac Type Severity Reaction Status Date / Time No Known Drug Allergies Allergy Verified 10/30/24 11:06 Opioid HPI Opioid Management Most Recent Pain and Opioid Data: Last Pain Scale 8 Today, 11:06 Review of Systems ROS Status of ROS 10 or more systems reviewed and unremarkable except as noted in history and below PFSH PFSH Social History Little interest or pleasure in doing things: not at all Feeling down, depressed, or hopeless: not at all Exam Narrative Exam Narrative: Nurses notes and vital signs reviewed and patient is not hypoxic. General: Well-appearing and in no apparent distress. Skin: Warm, dry, no pallor noted. No rash. Head: Normocephalic, atraumatic. Neck: Supple, non-tender. Eye: Pupils are equal, round and EOMI. No scleral icterus. Ears, Nose, Mouth, and Throat: TM are clear, no nasal mucosal hypertrophy. Oral mucosa is moist, no posterior oropharynx erythema, uvula is mid-line Cardiovascular: Regular Rate and Rhythm without murmur, gallop or rub. Respiratory: No accessory muscle use or respiratory distress. Lungs are clear to auscultation, no wheezing, rales or rhonchi Chest Wall: no tenderness Back: No midline thoracic or lumbar vertebral tenderness. No CVA tenderness Musculoskeletal: normal ROM, no calf or popliteal tenderness, no lower extremity edema/swelling GI: Abdomen is soft, non-distended. Normal bowel sounds. No masses appreciated. No tenderness to palpation. No rebound, guarding, or rigidity noted. Neurological: A&O x4. No cranial nerve dysfunction observed. No truncal ataxia. Moves all extremities. Sensation intact. Psychiatric: Cooperative and interactive. Normal mood and affect. Constitutional Vital Signs, click to edit/add: Last Vital Signs Temp 98 F 10/30/24 11:06 Pulse 77 10/30/24 11:06 Resp 18 10/30/24 11:06 BP 149/86 H 10/30/24 11:06 Pulse Ox 95 10/30/24 11:06 O2 Del Method Room Air 10/30/24 11:06 Course Vital Signs Vital signs: Vital Signs Temperature 98 F 10/30/24 11:06 Pulse Rate 77 10/30/24 11:06 Respiratory Rate 18 10/30/24 11:06 Blood Pressure 149/86 H 10/30/24 11:06 Pulse Oximetry 95 10/30/24 11:06 Oxygen Delivery Method Room Air 10/30/24 11:06 Temperature 98 F 10/30/24 11:06 Pulse Rate 77 10/30/24 11:06 Respiratory Rate 18 10/30/24 11:06 Blood Pressure 149/86 H 10/30/24 11:06 Pulse Oximetry 95 10/30/24 11:06 Oxygen Delivery Method Room Air 10/30/24 11:06 MDM - Head Injury MDM Narrative Medical decision making narrative: With the patient age the patient had a CAT scan ordered CT of the head showed no acute pathology The patient was instructed to be cautious when drinking The patient is to follow up with primary care physician in next 2-3 days or to return to the emergency department should any of the signs or symptoms worsen or new symptoms develop. The patient agrees with the following Diagnosis and Treatment plan and the patient will be discharged home. Discharge Plan Discharge Chief Complaint: Head Injury Clinical Impression: Closed head injury Patient Disposition: Home, Self-Care Time of Disposition Decision: 12:20 Condition: Good Print Language: Norwegian Instructions: Head Injury (DC) Referrals: JACQUELIN MEYER [Primary Care Provider, Internal Medicine] - 1 week
== END 2024-10-30 12:27 | disposition home or self-care (01) ==
PROVIDERS: Emergency Provider Emergency Medicine; PCP Internal Medicine
DX: S09.8XXA Other specified injuries of head, initial encounter (principal); W19.XXXA Unspecified fall, initial encounter
CPT/HCPCS: 70450; 99284

== ENCOUNTER 2025-02-07 12:16 | Outpatient (OUT) | payer MEDICARE, SELFPAY ==
--- OUTSIDE RECORDS SUMMARY | 2024-01-28 05:30 | XMS_ITS ---
Author Organization [facility] Address [address] [place] [address] Care Team Providers Care Government Gauger Name Role Phone Janelle Sandoval Unavailable [phone] REASON FOR VISIT Perio Maint Encounters Encounter Location Date Provider Diagnosis [facility] [address] [place] [address] 01/28/2024 Janelle Sandoval Plan Of Treatment No Information Progress Notes * JOHNNA BINDUDOB: (74 yo F)Acc No.[id number]:01/28/2024 Patient:?BINDU OROPEZA :?Janelle MastpapaDOB:1950???Age:73 Y???Sex: FemaleDate:01/28/2024hone:[phone]:[address], [id number] Subjective: * Chief Complaints: * P erio Maint * Electronic signature of Janelle Sandoval on 02/07/2025 at 11:28 AM EDTSign off status: Pending * Provider: Tera Sandoval Date: Generated for Printing/Faxing/eTransmitting on:?02/07/2025 11:28 AM EDT
--- NOTE | 2025-02-07 | XR_ITS ---
The [address] [address] Patient Name: BINDU OROPEZA MRN: [id number] date: 1950 Sex: F Assigned Patient Location: [facility] Current Patient Location: [facility] Accession/Order Number: [id number] Exam Date: 02/07/2025 12:20 Report Date: 02/07/2025 16:35 At the request of: JACQUELIN MEYER Procedure: XR chest 2V Plain film chest 2 view HISTORY: Persistent cough COMPARISON: 04/16/2019 FINDINGS: SUPPORT DEVICES: None POSTSURGICAL CHANGES: None HEART: Within normal limits PULMONARY RAPHAEL: Within normal limits MEDIASTINUM: Unremarkable LUNGS AND PLEURA: No acute lung process, pleural effusion or pneumothorax identified. Hyperinflation BONY STRUCTURES: Intact ADDITIONAL FINDINGS None XR/XR chest 2V IMPRESSION: No acute process. Impression dictated by: Josr Yo M.D. 02/07/2025 4:35 PM Dictation Location: [place] [address] Electronically authenticated by: [id number] Y Date: 02/07/2025 16:35
--- OUTSIDE RECORDS SUMMARY | 2025-02-07 11:30 | XMS_ITS | Encounter Summary ---
Author Organization [facility] Address [address] [facility] [place] [address] Care Team Providers Care Automation Control Technician Name Role Phone Chavo Benavides MD Primary Care Provider [phone] Chavo Benavides MD Unavailable [phone] Reason for Referral * Imaging (Routine) - Pending ReviewSpecialtyDiagnoses / ProceduresReferred By ContactReferred To ContactRadiology Diagnoses Persistent cough Procedures CT SINUS WO IV CONTRAST Chavo Benavides MD [address] [facility] [address] [place] [address] Phone: tel: fax: Referral IDStatusReasonStart DateExpiration DateVisits RequestedVisits [id number] Encounter Details DateTypeDepartmentCare Team (Latest Contact Info)Pojkkcavetk82/27/2025 11:30 AM EDTOffice Visit [facility] 112 [facility] [address] [place] [address] Chavo Benavides MD 112 [facility] [address] [place] [address] Persistent cough (Primary Dx); Other chronic pain Social History Tobacco UseTypesPacks/DayYears UsedDateSmoking Tobacco: NeverSmokeless Tobacco: Never Tobacco Cessation:Counseling Given: Yes Alcohol UseStandard Drinks/WeekCommentsYes2 (1 standard drink = 0.6 oz pure alcohol)Caffeine intake: 3-4 cups per day coffee, teaAUDIT-CAnswerDate Recorded Q1: How often do you have a drink containing alcohol?Monthly or less06/19/2023 Q2: How many drinks containing alcohol do you have on a typical day when you are drinking?1 or Q3: How often do you have six or more drinks on one occasion?Less than svprjwe5806/19/2023HQ-2AnswerDate RecordedPatient Health Questionnaire-2 Umiol375CommentsNoSex and Gender Information ValueDate RecordedSex Assigned at BirthNot on fileLegal BunIlvruj38/15/2023 6:44 PM EDTGender IdentityNot on fileSexual OrientationNot on filedocumented as of this encounter Last Filed Vital Signs Vital SignReadingTime TakenCommentsBlood Srcyatva340/7802/07/2025 11:38 AM EDT Rnthl319402/07/2025 11:38 AM EDTTemperature--Respiratory Wxwd7849 11:38 AM EDTOxygen Raockbyjny90%02/07/2025 11:38 AM EDTInhaled Oxygen Concentration-- Kgsbxg67.7 kg (158 lb)02/07/2025 11:38 AM PYCJyxupi570.6 cm (5' 4 )02/07/2025 11:38 AM EDTBody Mass Index27.121 11:38 AM EDTdocumented in this encounter Functional Status * Over the past 2 weeks, how often have you been bothered by any of the following problems?QuestionAnswerDate of AssessmentAuthorLittle interest or pleasure in doing thingsSeveral days02/07/2025 11:29 AM Armida RUBINeling down, depressed, or hopelessNot at all02/07/2025 11:29 AM ISMAEL RUBIN Patient Health Questionnaire-2 Zhogj478 11:29 AM ISMAEL RUBIN documented as of this encounter Plan of Treatment DateTypeDepartmentCare Team (Latest Contact Info)Rqhpoyrifij22/10/2025 11:45 AM ESTOffice Visit [facility] [place] [facility] [address] [facility] [address] [place] [address] Chavo Benavides MD [address] [place] [address] 08/15/2025 9:15 AM EDTOffice Visit [facility] [address] [place] [address] Kylee Tirado MD [address] [place] [address] 08/16/2025 11:05 AM EDTOffice Visit [facility] [address] [place] [address] Karly Miller, SCIENTIFIC LABORATORY SUPERVISOR-SECURITY SHIFT SUPERVISOR [address] [place] [address] NameTypePriorityAssociated DiagnosesOrder ScheduleXR chest 2 viewsImagingRoutine Persistent cough Expected: 02/07/2025, Expires: 02/07/2026T SINUS WO IV CONTRASTImagingRoutine Persistent cough Expected: 02/07/2025, Expires: 02/07/2026documented as of this encounter Visit Diagnoses Diagnosis Persistent cough- Primary Other chronic pain documented in this encounter Care Teams Team MemberRelationshipSpecialtyStart DateEnd Date Chavo Benavides MD [address] [facility] [address] [place] [address] PCP - GeneralInternal Medicine10/22/22 Chavo Benavides MD [address] [facility] [address] [place] [address] PCP - Medical [place] PA04/14/2511documented as of this encounter
--- OUTSIDE RECORDS SUMMARY | 2025-02-07 12:20 | XMS_ITS | Encounter Summary ---
Author Organization [facility] Address [address] [place] [facility] [place] [address] Care Team Providers Care Mattress Filler Name Role Phone Chavo Benavides MD Primary Care Provider [phone] Chavo Benavides MD Unavailable [phone] Encounter Details DateTypeDepartmentCare Team (Latest Contact Info)Aotxaotzrbl10/27/2025amboo flowsheet [facility] [place] [facility] [address] [address] [place] [address] Chavo Benavides MD [address] [address] [place] [id number] Social History Tobacco UseTypesPacks/DayYears UsedDateSmoking Tobacco: NeverSmokeless Tobacco: NeverAlcohol UseStandard Drinks/WeekCommentsYes2 (1 standard drink = 0.6 oz pure alcohol)Caffeine intake: 3-4 cups per day coffee, teaAUDIT-CAnswerDate Recorded Q1: How often do you have a drink containing alcohol?Monthly or less06/19/2023 Q2: How many drinks containing alcohol do you have on a typical day when you are drinking?1 or Q3: How often do you have six or more drinks on one occasion?Less than cmqwwux3106/19/2023HQ-2AnswerDate RecordedPatient Health Questionnaire-2 Wkcht817CommentsNoSex and Gender Information ValueDate RecordedSex Assigned at BirthNot on fileLegal UnvYsqpeb84/15/2023 6:44 PM EDTGender IdentityNot on fileSexual OrientationNot on filedocumented as of this encounter Plan of Treatment DateTypeDepartmentCare Team (Latest Contact Info)Yjgfggijbga65/10/2025 11:45 AM ESTOffice Visit [facility] [place] [facility] [address] [address] [place] [address] Chavo Benavides MD [address] [place] [address] 08/15/2025 9:15 AM EDTOffice Visit [facility] [facility] [address] [place] [address] Kylee Tirado MD [address] [place] [address] 08/16/2025 11:05 AM EDTOffice Visit [facility] [address] [place] [address] Karly Miller, GALVANIZER-CIRCUIT DESIGNER [address] [place] [address] documented as of this encounter Visit Diagnoses Not on filedocumented in this encounter Care Teams Team MemberRelationshipSpecialtyStart DateEnd Date Chavo Benavides MD [address] [place] [address] PCP - GeneralInternal Medicine10/22/22 Chavo Benavides MD [address] [place] [address] PCP - Medical [place] MA04/14/2511documented as of this encounter
--- OUTSIDE RECORDS SUMMARY | 2025-02-07 12:20 | XMS_ITS | Clinical Summary ---
Author Organization [employer] Address [id number] [address] [place] [address] Care Team Providers Care Racetrack Steward Name Role Phone Chavo Benavides MD Primary Care Provider [phone] Allergies No known active allergies Medications MedicationSigDispense QuantityRefillsLast FilledStart DateEnd DateStatus albuterol (PROVENTIL HFA;VENTOLIN HFA) 90 mcg/actuation inhaler INHALE 1 PUFF BY MOUTH EVERY 4 HOURS ZFHWCQ9705/27/2022ctive ALPRAZolam (XANAX) 1 mg tablet TAKE 1/2 (ONE-HALF) OF A TABLET BY MOUTH TWICE DAILY FTTHXT8205/24/2022ctive amLODIPine-benazepril (LOTREL) 5-20 mg per capsule Take by mouth daily.05/24/2022ctive baclofen (LIORESAL) 10 mg tablet Take 1 tablet (10 mg total) by mouth 3 (three) times a day.05/16/2022ctive DULoxetine (CYMBALTA) 60 mg capsule Take 1 capsule (60 mg total) by mouth in the morning.04/24/2022ctive gabapentin (NEURONTIN) 300 mg capsule Take 1 capsule (300 mg total) by mouth in the morning and 1 capsule (300 mg total) before bedtime.04/29/2022ctive loperamide (IMODIUM) 2 mg capsule TAKE 1 CAPSULE BY MOUTH FOUR TIMES DAILY DHHUID0805/24/2022ctive meloxicam (MOBIC) 15 mg tablet Take 1 tablet (15 mg total) by mouth in the morning.05/24/2022ctive omeprazole (PriLOSEC) 20 mg capsule TAKE 1 CAPSULE BY MOUTH 30 mins BEFORE morning meal05/24/2022ctive simvastatin (ZOCOR) 40 mg tablet Take 1 tablet (40 mg total) by mouth in the morning.05/24/2022ctive zolpidem (AMBIEN) 10 mg tablet Take 1 tablet (10 mg total) by mouth nightly as needed.05/24/2022ctive Active Problems No known active problems Family History Medical HistoryRelationNameCommentsHeart attackFatherHeart diseaseFatherCancer MotherHeart diseaseSisterRelationNameStatusCommentsFatherDeceasedMotherDeceased SisterAlive Social History Tobacco UseTypesPacks/DayYears UsedDateSmoking Tobacco: NeverSmokeless Tobacco: Never Tobacco Cessation:Counseling Given: Not Answered Alcohol UseStandard Drinks/WeekCommentsNot Asked0 (1 standard drink = 0.6 oz pure alcohol)1-2 GLASSES OF WINE A WEEKChildcareAnswerDate RecordedChildcare Govnjry6609/23/2018EmploymentAnswerDate PzwennoyBnbjpomeixIdumybg95/12/2019 CommentsNoSex and Gender InformationValueDate RecordedSex Assigned at BirthNot on fileLegal YifLkxdmv13/06/2015 11:28 AM EDTGender IdentityNot on file Sexual OrientationNot on file Last Filed Vital Signs Vital SignReadingTime TakenCommentsBlood Kfzoeolh829/65007/11/2022 10:45 AM EDT Dlkbs614107/11/2022 10:46 AM EDTTemperature--Respiratory Mdyl364307/11/2022 10:46 AM EDTOxygen Tmxlshihlz594%07/11/2022 10:40 AM EDTInhaled Oxygen Concentration-- Kozptz25.3 kg (166 lb)07/11/2022 8:19 AM IOBOiqhia931 cm (5' 3 )07/11/2022 8:19 AM EDTBody Mass Index29.41007/11/2022 8:19 AM EDT Plan of Treatment Health MaintenanceDue DateLast DoneCommentsDepression Efaaoikxx73/14/1963Tobacco Lspnqgiub41/14/1963DTaP,Tdap and Td Vaccines (1 - Tdap)1969Fall Risk Sryydhjpi92/14/2016Zoster (Shingles) Vaccine (2 of 3)Adult BMI Upyddzmvh77OVID-19 Vaccine ( season)2024 09/03/2020, 08/04/2020Influenza Dwpzlqt67, 01/30/2021, 02/14/2020, Additional history hkaiukLuaiavrdsuz18/30/203303/, 07/11/2022 Medical Devices Not on file Procedures Procedure NamePriorityDate/TimeAssociated DiagnosisCommentsPROVATION COLONOSCOPY Kfntezl5007/11/2022 8:37 AM EDT from Last 3 Months or Most Recently Relevant to Health Maintenance Results * Colonoscopy Report (07/11/2022 8:37 AM EDT)Specimen (Source)Anatomical Location / LateralityCollection Method / VolumeCollection TimeReceived Time Narrative SYSTEMGENERATED, DOCUMENTATION - 07/11/2022 8:37 AM EDT This order has been auto-finalized for image and report archival in PACs. *For full report details, please reach out to your physician. ??This image is visible to you in MyChart.* Authorizing ProviderResult TypeResult StatusMichael E Grillis DOIMG OR IMG ORDERABLESFinal Result from Last 3 Months or Most Recently Relevant to Health Maintenance Insurance Care Teams Team MemberRelationshipSpecialtyStart DateEnd Date Chavo Benavides MD [address] [facility] [address] [place] [address] [facility]05/28/22
--- OUTSIDE RECORDS SUMMARY | 2025-02-07 12:20 | XMS_ITS | Encounter Summary ---
Author Organization [facility] Address [address] [facility] [place] [address] Care Team Providers Care Energy Derivatives Trader Name Role Phone Chavo Benavides MD Primary Care Provider [phone] Chavo Benavides MD Unavailable [phone] Encounter Details DateTypeDepartmentCare Team (Latest Contact Info)Snypybwdpau41/27/2025Travel Social History Tobacco UseTypesPacks/DayYears UsedDateSmoking Tobacco: NeverSmokeless [...] or more drinks on one occasion?Less than iehsrha5206/19/2023HQ-2AnswerDate RecordedPatient Health Questionnaire-2 Rnyhr005CommentsNoSex and Gender Information ValueDate RecordedSex Assigned at BirthNot on fileLegal TsgCuenwt18/15/2023 6:44 PM EDTGender IdentityNot on fileSexual OrientationNot on filedocumented as of this encounter Functional Status * Over the past 2 weeks, how often have you been bothered by any of the following problems?QuestionAnswerDate of AssessmentAuthorLittle interest or pleasure in doing thingsSeveral days02/07/2025 11:29 AM EDTKRArmida ESPARZAeling down, depressed, or hopelessNot at all02/07/2025 11:29 AM ISMAEL RUBIN Patient Health Questionnaire-2 Toyii182 11:29 AM ISMAEL RUBIN documented as of this encounter Plan of Treatment DateTypeDepartmentCare Team (Latest Contact Info)Qdvnzzshixv45/10/2025 11:45 AM ESTOffice Visit [facility] [place] [facility] [address] [place] [address] Chavo Benavides MD [address] [place] [address] 08/15/2025 9:15 AM EDTOffice Visit [facility] [place] [facility] [address] [place] [phone] Kylee Tirado MD [address] [place], [place] [address] 08/16/2025 11:05 AM EDTOffice Visit [facility] [place] [facility] [address] [place] [address] Karly Miller, WELDER-OCCUPATIONAL HEALTH TECHNICIAN [address] [place] [address] documented as of this encounter Visit Diagnoses Not on filedocumented in this encounter Care Teams Team MemberRelationshipSpecialtyStart DateEnd Date Chavo Benavides MD [address] [place] [address] PCP - GeneralInternal Medicine10/22/22 Chavo Benavides MD [address] [place] [address] PCP - Medical [place] MA04/14/2511documented as of this encounter
--- OUTSIDE RECORDS SUMMARY | 2025-02-07 12:20 | XMS_ITS | Clinical Summary ---
Author Organization [facility] Healthcare Address [address] [facility] [place] [address] Care Team Providers Care Medical Anthropology Director Name Role Phone Chavo Benavides MD Primary Care Provider [phone] Chavo Benavides MD Unavailable [phone] Allergies Active AllergyReactionsCriticalityNoted IrzrLbegqtemJujztlaujmBzagt04/19/2024 Medications MedicationSigDispense QuantityRefillsLast FilledStart DateEnd DateStatus Melatonin 10 MG capsule Take 10 mg by mouth at bedtimeActive loperamide (Imodium) 2 MG capsule Take 2 mg by mouth as needed in the morning and 2 mg as needed at noon and 2 mg as needed in the evening and 2 mg as needed before bedtime for diarrhea.Active albuterol HFA 90 mcg/act inhaler Inhale 1 puff every 4 (four) hours3Active diphenhydrAMINE (Allergy) 25 MG capsule Take 25 mg by mouth every 8 (eight) hours if needed for allergiesActive Black Cohosh 540 MG capsule Take by mouthActive chlorhexidine (Peridex) 0.12 % solution Use 15 mL in the mouth or throat in the morning and 15 mL before bedtime. 4Active meloxicam (Mobic) 15 MG tablet Indications:Acute low back pain, unspecified back pain laterality, unspecified whether sciatica presentTAKE 1 TABLET BY MOUTH DAILY 100 tablet 5Active estradiol (Estrace) 0.1 MG/GM vaginal cream Indications:Vulvovaginal AtrophyInsert 1 gram twice weekly 42.5 g 5Active baclofen (Lioresal) 10 MG tablet Indications:Other chronic painTake 1 tablet (10 mg) by mouth in the morning and 1 tablet (10 mg) in the evening and 1 tablet (10 mg) before bedtime. 90 tablet 5Active amLODIPine (Norvasc) 10 MG tablet Indications:Essential hypertensionTAKE 1 TABLET BY MOUTH DAILY 100 tablet 5Active omeprazole (PriLOSEC) [address] capsule Indications:Gastro-esophageal reflux disease without esophagitisTAKE 1 CAPSULE BY MOUTH IN THE MORNING BEFORE a meal * DO NOT CRUSH OR CHEW * 90 capsule 5Active ALPRAZolam (Xanax) 1 MG tablet Indications:Adjustment disorder with mixed anxiety and depressed moodTake 0.5 tablets (0.5 mg) by mouth as needed in the morning and 0.5 tablets (0.5 mg) as needed before bedtime for anxiety. 30 tablet 5Active hydroCHLOROthiazide (HYDRODiuril) 12.5 MG tablet Indications:Essential hypertensionTake 1 tablet (12.5 mg) by mouth in the morning. 100 tablet 5Active DULoxetine (Cymbalta) [address] capsule Indications:Adjustment disorder with mixed anxiety and depressed moodTake 1 capsule (30 mg) by mouth Daily 100 capsule 5Active olmesartan (BENIcar) 20 MG tablet Indications:Essential hypertensionTake 1 tablet (20 mg) by mouth Daily 90 tablet /6Active simvastatin (Zocor) 40 MG tablet Indications:Mixed hyperlipidemiaTake 1 tablet (40 mg) by mouth Daily 100 tablet 5Active zolpidem (Ambien) 10 MG tablet Indications:Insomnia, unspecifiedTake 1 tablet (10 mg) by mouth as needed at bedtime for sleep 30 tablet 5Active valACYclovir (Valtrex) 1 g tablet Indications:Recurrent cold soresTake 2 tablets (2,000 mg) by mouth in the morning and 2 tablets (2,000 mg) before bedtime. Take within 24-48 hours of onset of symptoms for 1 day. 4 tablet 5Active gabapentin (Neurontin) 300 MG capsule Indications:Other chronic painTake 1 capsule (300 mg) by mouth in the morning and 1 capsule (300 mg) before bedtime. 180 capsule 5Active gabapentin (Neurontin) 300 MG capsule Indications:Other chronic painTake 1 capsule (300 mg) by mouth in the morning and 1 capsule (300 mg) before bedtime. 180 capsule Discontinued(Reorder) Active Problems ProblemNoted DateDiagnosed DatePrimary osteoarthritis of left knee03/23/2024 Abnormal mammogram of right rubkwn2609/24/2022ctinic utcacmnmf67/13/2023hronic veaicozpf81/13/2023ontracture, right ankle09/24/2022ifficulty walking 09/24/2022Essential wjeylqjtkjvi76/13/2023astroesophageal reflux disease without lpkhlluxbkx40/13/2023eneralized anxiety ynwjrnhy52/13/2023History of ptrrikfgqncb96/13/5563Otzmtbyd93/13/2023Irritable bowel syndrome with diarrhea 09/24/2022Mixed ajcsia6009/24/2022Mixed cbnonjkzsrvhub48/13/2023Osteopenia 09/24/2022Other chronic pain09/24/2022aresthesia of skin09/24/2022rimary osteoarthritis, left elbow09/24/2022soriasis swbiltyw64/13/2023Recurrent cold sores09/24/2022Restless legs syndrome (RLS)09/24/20220085Guynzzuazfkv62/13/2023 Sciatica, right side09/24/20227895Higfmbaly97/13/2023Spondylosis of cervical region without myelopathy or jplfgtedidkcl37/13/2023Trigger ring finger of left hand 09/24/2022arpal tunnel mycwexsh54/13/2023djustment disorder with mixed anxiety and depressed mood06/02/2008 Resolved Problems ProblemNoted DateDiagnosed DateResolved DateObesity (BMI 30-39.9)09/24/2022 10/24/2022 Encounters DateTypeDepartmentCare HjyqIhzpojlyert34/27/2025 11:30 AM EDTOffice Visit [facility] [address] [place] [address] Chavo Benavides MD Persistent cough (Primary Dx); Other chronic pain02/07/2025amboo flowsheet [facility] [address] [place] [address] Chavo Benavides MD 02/07/20256309Yvkezs89/22/2025 2:30 PM EDTOffice Visit [facility] [address] [place] [address] Rani Lieberman PA Trigger ring finger of right hand (Primary Dx); Recurrent cold sores; Age-related cataract of both eyes, unspecified age-related cataract type; Frontal headache; Cwujeaaqd42/22/2025amboo flowsheet [facility] [place] [facility] [address] [facility] [address] [place] [address] Rani Lieberman PA 01/03/20256251Wfydgi12/15/2025Patient Outreach [facility] [address] [address] Tracee Henry LPN 12/23/2024Telephone [facility] [place] [facility] [address] [facility] [address] [place] [address] Chavo Benavides MD 12/17/2024Refill [facility] [place] [facility] [address] [facility] [address] [place] [address] Niesha Perez, RIFLE CASE REPAIRER Insomnia, lvtmplavifa46/27/2025Refill [facility] [place] [facility] [address] [facility] [address] [place] [address] Trisha Burgess LPN Mixed ydyzbkaimgjndq09/27/2025Refill [facility] [address] [place] [address] Trisha Burgess LPN Essential hypertension ; Adjustment disorder with mixed anxiety and depressed mood11/25/2024Results Follow-Up [facility] [address] [place] [address] Rani Lieberman PA CBC and differential, Comprehensive metabolic panel, Lipid panel, Additional followed-up results: 208/03/2025Refill [facility] [place] [facility] [address] [facility] [address] [place] [address] Chavo Benavides MD Adjustment disorder with mixed anxiety and depressed moodfrom Last 3 Months Immunizations ImmunizationAdministration DatesNext DueABRYSVO - Respiratory syncytial virus (RSV), vaccine, bivalent, protein subunit RSV prefusion F, diluent reconstituted, 0.5 mL, PF01/30/2024Influenza, High Dose Seasonal, Preservative Free01/21/2024Influenza, High-dose Seasonal, Quadrivalent, Preservative Free 01/18/2023,01/28/2022,01/30/2021,01/01/2020,01/26/2018,01/31/2017Influenza, injectable, quadrivalent, preservative free02/14/2020,06/18/2016,01/25/2016 Influenza, recombinant, quadrivalent, injectable, preservative free02/05/2019 Influenza, seasonal, lhdutssfxn73/14/2020Pneumococcal Conjugate PCV 13009/14/2015 Pneumococcal Polysaccharide RRSC2625Zoster, live12/19/2015 Family History Medical HistoryRelationNameCommentsCancerMotherIrritable bowel syndromeMother MelanomaNeg HxRelationNameStatusCommentsFatherDeceasedMotherDeceased Social History Tobacco UseTypesPacks/DayYears UsedDateSmoking Tobacco: NeverSmokeless [...] or more drinks on one occasion?Less than ypkevyv89/07/2024PHQ-2AnswerDate RecordedPatient Health Questionnaire-2 Ooqrq927CommentsNoSex and Gender Information ValueDate RecordedSex Assigned at BirthNot on fileLegal KhcQkkqac83/15/2023 6:44 PM EDTGender IdentityNot on fileSexual OrientationNot on file Last Filed Vital Signs Vital SignReadingTime TakenCommentsBlood Lyszidek961/7802/07/2025 11:38 AM EDT Rmife692902/07/2025 11:38 AM RLFKtbsghdzntg11.4 ??C (97.6 ??F)01/03/2025 2:42 PM EDTRespiratory Jaql3973 11:38 AM EDTOxygen Rvmgtcphdp07%02/07/2025 11:38 AM EDTInhaled Oxygen Concentration--Ktlzep88.7 kg (158 lb)02/07/2025 11:38 AM IMFMcojvt491.6 cm (5' 4 )02/07/2025 11:38 AM EDTBody Mass Index27.121 11:38 AM EDT Plan of Treatment DateTypeDepartmentCare Team (Latest Contact Info)Nmpqgvoyvah75/10/2025 11:45 AM ESTOffice Visit NOMS [place] [facility] [address] [facility] [address] [place] [address] Chavo Benavides MD [address] [facility] [address] [place] [address] 08/15/2025 9:15 AM EDTOffice Visit [facility] [place] [facility] [address] [place] [address] Kylee Tirado MD [address] [place], [place] [address] 08/16/2025 11:05 AM EDTOffice Visit [facility] [facility] [address] [place] [address] Karly Miller, DREDGE PIPEMAN-ICT SUPPORT ENGINEER [address] [place] [address] Health MaintenanceDue DateLast DoneCommentsCT Uvhlzquofdod77/14/1951FIT-DNA 1950FIT1950FOBT1950 9562Iubdlcmzrxwox88/14/1951TaP/Tdap/Td Vaccines (1 - Tdap)1957COVID-19 Vaccine (3 - season)2024 09/03/2020, 08/04/20200566Bgbfmglsb61, 06/13/2023, 06/13/2023, Additional history existsMedicare Annual Wellness (AWV), 10/27/2023, 10/24/20225266Boxqzthwswc77, 07/11/2022, 07/11/2022, Additional history existsColorectal Cancer Chliuiqaa30/30/2033Pneumococcal Vaccine: 65+ UxbocDhqcckdij45/06/2020, 09/14/2015Influenza VaccineCompleted 01/24/2025, 01/21/2024, 01/18/2023, Additional history existsHIB VaccinesAged OutNo longer eligible based on patient's age to complete this topicHPV Vaccines Aged OutNo longer eligible based on patient's age to complete this topic Hepatitis A VaccinesAged OutNo longer eligible based on patient's age to complete this topicHepatitis B VaccinesAged OutNo longer eligible based on patient's age to complete this topicIPV VaccinesAged OutNo longer eligible based on patient's age to complete this topicMeningococcal B VaccineAged OutNo longer eligible based on patient's age to complete this topicMeningococcal VaccineAged OutNo longer eligible based on patient's age to complete this topicRotavirus VaccinesAged OutNo longer eligible based on patient's age to complete this topic Procedures Procedure NamePriorityDate/TimeAssociated DiagnosisCommentsT4, FREERoutine 11/24/2024 8:57 AM EDT Essential hypertension Osteopenia, unspecified location YFDEewzurc58/13/2025 8:57 AM EDT Essential hypertension Osteopenia, unspecified location LIPID FOLTGCrqzzmn49/13/2025 8:57 AM EDT Mixed hyperlipidemia COMPREHENSIVE METABOLIC WYHQAAaytfut49/13/2025 8:57 AM EDT Essential hypertension Osteopenia, unspecified location CBC (INCLUDES DIFF/PLT)Rzynppt3611/24/2024 8:57 AM EDT Mixed hyperlipidemia Essential hypertension Gastroesophageal reflux disease without esophagitis MM TOMOSYNTHESIS SCREENING BI07/12/2024 4:24 PM EDT OGOWDNYPXEPAoywztu65/30/2023 12:00 PM EDT from Last 3 Months or Most Recently Relevant to Health Maintenance Results * CBC and differential (11/24/2024 8:57 AM EDT)ComponentValueRef RangeTest MethodAnalysis TimePerformed AtPathologist SignatureWHITE BLOOD CELL COUNT5.9 3.8 - 10.8 Thousand/uLQUESTRED BLOOD CELL COUNT4.603.80 - 5.10 Million/uLQUEST FCUJVAEVXM11.311.7 - 15.5 g/gAMEDKCJJICXKPXGJ70.635.0 - 45.0 %TDEFVDAK18.880.0 - 100.0 bGWRUOQXRN13.127.0 - 33.0 liBQZURQHLO67.832.0 - 36.0 g/dLQUESTComment: For adults, a slight decrease in the calculated MCHC value (in the range of 30 to 32 g/dL) is most likely not clinically significant; however, it should be interpreted with caution in correlation with other red cell parameters and the patient's clinical condition. RDW12.911.0 - 15.0 %QUESTPLATELET XJHJF845145 - 400 Thousand/uLQUESTMPV9.37.5 - 12.5 fLQUESTABSOLUTE NEUTROPHILS3,4101,500 - 7,800 cells/uLQUESTABSOLUTE LYMPHOCYTES1,346762 - 3,900 cells/uLQUESTABSOLUTE DELMDCUCJ996419 - 950 cells/uL QUESTABSOLUTE AQAUGYCTKUC06369 - 500 cells/uLQUESTABSOLUTE DDKUTUDUB420 - 200 cells/gPVCHLRWLXLJMHCOYT63.8%DFOKLPVNIJMNWHND97.0%QUESTMONOCYTES7.3%QUEST EOSINOPHILS3.4%QUESTBASOPHILS0.5%QUESTSpecimen (Source)Anatomical Location / LateralityCollection Method / VolumeCollection TimeReceived TimeBloodVenous blood specimen / Zdddyug2211/24/2024 8:57 AM EDT11/24/2024 3:59 PM EDT Narrative [facility] - 11/25/2024 3:50 AM EDT FASTING:YES FASTING: YES Resulting Agency Comment Performing Organization Information ?Site ID: QTW ?[facility] ?Address: [address] [place] [phone] ?Director: Kelli Brice Authorizing ProviderResult TypeResult StatusChavo LYNCH BLOOD ORDERABLESFinal ResultPerforming OrganizationAddHelen M. Simpson Rehabilitation Hospitalty/State/ZIP CodePhone Number [facility] * TSH (11/24/2024 8:57 AM EDT)ComponentValueRef RangeTest MethodAnalysis Time Performed AtPathologist SignatureTSH4.120.40 - 4.50 mIU/LQUESTSpecimen (Source)Anatomical Location / LateralityCollection Method / VolumeCollection TimeReceived TimeBloodVenous blood specimen / Putvofd0511/24/2024 8:57 AM EDT 11/24/2024 3:59 PM EDT Narrative [facility] - 11/25/2024 3:50 AM EDT FASTING:YES FASTING: YES Resulting Agency Comment Performing Organization Information ?Site ID: QPT ?Name: [facility] ?Address: [address] [place] [phone] ?Director: Heladio Castellano MD Authorizing ProviderResult TypeResult StatusDajorge LYNCH BLOOD ORDERABLESFinal ResultPerforming OrganizationAddHelen M. Simpson Rehabilitation Hospitalty/State/ZIP CodePhone Number [facility] * T4, free (11/24/2024 8:57 AM EDT)ComponentValueRef RangeTest MethodAnalysis TimePerformed AtPathologist SignatureT4, FREE1.00.8 - 1.8 ng/dLQUESTSpecimen (Source)Anatomical Location / LateralityCollection Method / VolumeCollection TimeReceived TimeBloodVenous blood specimen / Ktvsugf1711/24/2024 8:57 AM EDT 11/24/2024 3:59 PM EDT Narrative [facility] - 11/25/2024 3:50 AM EDT FASTING:YES FASTING: YES Resulting Agency Comment Performing Organization Information ?Site ID: QPT ?Name: [facility] ?Address: [address] [place] [address], [address] [place] [phone] ?Director: Heladio Castellano MD Authorizing ProviderResult TypeResult StatusDajorge Benavides MDLAB BLOOD ORDERABLESFinal ResultPerforming OrganizationAddressCity/State/ZIP CodePhone Number [facility] * (ABNORMAL) Lipid panel (11/24/2024 8:57 AM EDT)ComponentValueRef RangeTest MethodAnalysis TimePerformed AtPathologist SignatureCHOLESTEROL, KAJZA979<200 mg/dLQUESTHDL OQZLQBXWVQH99> OR = 50 mg/zQUPAKGUVDMHPABSGNMP384(H)<150 mg/dL QUESTLDL EPYUUJIEXRT96lw/dL (calc)QUESTComment: Reference range: <100 Desirable range <100 mg/dL for primary prevention; <70 mg/dL for patients with CHD or diabetic patients with > or = 2 CHD risk factors. LDL-C is now calculated using the Randal-Ware calculation, which is a validated novel method providing better accuracy than the Friedewald equation in the estimation of LDL-C. Randal COURTNEY et al. LIA. 2013;310(19): 7818-0019 (http://education.Hipmunk.com/faq/OYU550) CHOL/HDLC RATIO2.5<5.0 (calc)QUESTNON HDL KVDKTFNOHNK605<130 mg/dL (calc)QUEST Comment: For patients with diabetes plus 1 major ASCVD risk factor, treating to a non-HDL-C goal of <100 mg/dL (LDL-C of <70 mg/dL) is considered a therapeutic option. Specimen (Source)Anatomical Location / LateralityCollection Method / Volume Collection TimeReceived TimeBloodVenous blood specimen / Ixvjsgx3111/24/2024 8:57 AM EDT11/24/2024 3:59 PM EDT Narrative [facility] - 11/25/2024 3:50 AM EDT FASTING:YES FASTING: YES Resulting Agency Comment Performing Organization Information ?Site ID: QPT ?Name: [facility] ?Address: [address] , [address] [place] [phone] ?Director: Heladio Castellano MD Authorizing ProviderResult TypeResult StatusDajorge Benavides MDLAB BLOOD ORDERABLESFinal ResultPerforming OrganizationAddressCity/State/ZIP CodePhone Number [facility] * (ABNORMAL) Comprehensive metabolic panel (11/24/2024 8:57 AM EDT)Component ValueRef RangeTest MethodAnalysis TimePerformed AtPathologist SignatureGlucose 105(H)65 - 99 mg/dLQUESTComment: ? Fasting reference interval For someone without known diabetes, a glucose value between 100 and 125 mg/dL is consistent with prediabetes and should be confirmed with a follow-up test. UTB593 - 25 mg/dLQUESTCreatinine0.720.60 - 1.00 mg/kGUDEJWCIRO81> OR = 60 mL/min/1.97f2ASQITBHV/CREATININE RATIOSEE NOTE: (calc)QUESTComment: ?? Not Reported: BUN and Creatinine are within ?? reference range. ? Nvxhtb462630 - 146 mmol/LQUESTPotassium, Bld4.23.5 - 5.3 mmol/DLRMIDFadmddpm494 98 - 110 mmol/LQUESTCarbon Uggxdyf5878 - 32 mmol/LQUESTCalcium9.58.6 - 10.4 mg/dLQUESTPROTEIN, TOTAL6.76.1 - 8.1 g/dLQUESTALBUMIN4.33.6 - 5.1 g/dLQUEST GLOBULIN2.41.9 - 3.7 g/dL (calc)QUESTALBUMIN/GLOBULIN RATIO1.81.0 - 2.5 (calc) QUESTBILIRUBIN, TOTAL0.80.2 - 1.2 mg/dLQUESTALKALINE LPJHKJUCIRL4728 - 153 U/L VLSKNRLI7720 - 35 U/MSJFXRWFN119 - 29 U/LQUESTSpecimen (Source)Anatomical Location / LateralityCollection Method / VolumeCollection TimeReceived TimeBlood Venous blood specimen / Bruerdn8411/24/2024 8:57 AM EDT11/24/2024 3:59 PM EDT Narrative [facility] - 11/25/2024 3:50 AM EDT FASTING:YES FASTING: YES Resulting Agency Comment Performing Organization Information ?Site ID: QTW ?Name: [facility] ?Address: [address] [place] [address] ?Director: Kelli Brice Authorizing ProviderResult TypeResult StatusDanimattie Benavides MDLAB BLOOD ORDERABLESFinal ResultPerforming OrganizationAddressCity/State/ZIP CodePhone Number [facility]ST * MM TOMOSYNTHESIS SCREENING BI (07/12/2024 4:24 PM EDT)Anatomical Region LateralityModalityOtherSpecimen (Source)Anatomical Location / Laterality Collection Method / VolumeCollection TimeReceived Time07/12/2024 4:24 PM EDT Narrative 07/12/2024 4:25 PM EDT [facility] ?[address] ? [place] [id number] ? Mammography Report ? Signed ? Patient: VIVIENNE OROPEZA L ?MR#: [id number] ?? : 1950 ?Acct:[id number] ?? Age/Sex: 73 / F ?ADM Date: 07/12/24 ?? Loc: MAMMO ? Attending Dr: CHAVO BENAVIDES ? Ordering Physician: CHAVO BENAVIDES ? Results: ? Date of Service: 07/12/24 ?Follow Up: ? Procedure(s): MM tomosynthesis screening BI ?? Accession Number(s): [id number] ? cc: CHAVO BENAVIDES ? Patient Name: ? VIVIENNE GARDNERTESER ? MR#: [id number] ? : 1950 ? Exam Date: 07/12/2024 ?? Ordering Doctor: DR CHAVO BENAVIDES M.D. ? RADIOLOGY REPORT ? PROCEDURE: ? MM TOMOSYNTHESIS SCREENING BI ? COMPARISON: ? MM TOMOSYNTHESIS SCREENING BI, 06/13/2023. ??MG MAMM SCREEN 3D ?? RICCI CAD, 04/02/2021. ??MG MAMM RICCI SCRN W CAD DIG, 12/31/2007. ? INDICATIONS: ? Screening ? Calculator Name ? NCI Breast Cancer Risk Assessment Tool ?? 5 Year Breast Cancer Risk ? 2.20% ?? Lifetime Breast Cancer Risk ? 5.30% ?? Personal Breast Cancer ?No ?? Personal Ovarian Cancer ? No ?? Treatments ? None ?? Family Cancers ? Mother with unknown/pelvis cancer at age 42. ? LOCATION: ? [facility] ? BREAST COMPOSITION: ? There are scattered areas of fibroglandular density. ? FINDINGS: ? DIAGNOSTIC CATEGORY 1--NEGATIVE. ? RIGHT BREAST: ??No significant suspicious finding. ? LEFT BREAST: ??No significant suspicious finding. ? RECOMMENDATIONS: ? ROUTINE MAMMOGRAM AND CLINICAL EVALUATION IN 12 MONTHS. ? PLEASE NOTE: ??A NORMAL MAMMOGRAM DOES NOT EXCLUDE THE POSSIBILITY OF BREAST ?? CANCER. ??A CLINICALLY SUSPICIOUS PALPABLE LUMP SHOULD BE BIOPSIED. ? Dictated by: Bradley Gannon DO on 07/12/2024 at 16:22 ? Approved by: Bradley Gannon DO on 07/12/2024 at 16:24 ? Dictated By: ?Bradley Gannon M.D. ? Signed By: ?07/12/245 ? DD/ 23 ? TD/TT: ? Railway Signalling Engineer: Procedure Note Radiology, Radiologist, MD - 07/12/2024 [place] [address] Mammography Report Signed Patient: TYLERISIDRAVIVIENNE YOUNGBLOOD LMR#: [id number] : 1Acct:[id number] Age/Sex: 73 / FADM Date: 07/12/24 Loc: MAMMO Attending Dr: CHAVO BENAVIDES Ordering Physician: CHAVO BENAVIDESResults: Date of Service: 07/12/24Follow Up: Procedure(s): MM tomosynthesis screening BI Accession Number(s): [id number] cc: BETSYCHARLESCHAVO Patient Name: VIVIENNE OROPEZA MR#: [id number] : 1950 Exam Date: 07/12/2024 Ordering Doctor: DR CHAVO BENAVIDES M.D. RADIOLOGY REPORT PROCEDURE: MM TOMOSYNTHESIS SCREENING BI COMPARISON: MM TOMOSYNTHESIS SCREENING BI, 06/13/2023. MG MAMM YPCDLO6X RICCI CAD, 04/02/2021. MG MAMM RICCI SCRN W CAD DIG, 12/31/2007. INDICATIONS: Screening Calculator Name NCI Breast Cancer Risk Assessment Tool 5 Year Breast Cancer Risk 2.20% Lifetime Breast Cancer Risk 5.30% Personal Breast Cancer No Personal Ovarian Cancer No Treatments None Family Cancers Mother with unknown/pelvis cancer at age 42. LOCATION: [facility] BREAST COMPOSITION: There are scattered areas of fibroglandulardensity. FINDINGS: DIAGNOSTIC CATEGORY 1--NEGATIVE. RIGHT BREAST: No significant suspicious finding. LEFT BREAST: No significant suspicious finding. RECOMMENDATIONS: ROUTINE MAMMOGRAM AND CLINICAL EVALUATION IN 12 MONTHS. PLEASE NOTE: A NORMAL MAMMOGRAM DOES NOT EXCLUDE THE POSSIBILITY OFBREAST CANCER. A CLINICALLY SUSPICIOUS PALPABLE LUMP SHOULD BE BIOPSIED. Dictated by: Bradley Gannon DO on 07/12/2024 at 16:22 Approved by: Bradley Gannon DO on 07/12/2024 at 16:24 Dictated By: Bradley Gannon M.D. Signed By:07/12/24 1625 DD/ 1624 TD/TT: Railway Signalling Engineer: Authorizing ProviderResult TypeResult StatusDanimattie Benavides MDCLINISYNC IMAGING Final Result * Colonoscopy (07/11/2022 12:00 PM EDT)Anatomical RegionLateralityModality EndoscopySpecimen (Source)Anatomical Location / LateralityCollection Method / VolumeCollection TimeReceived Time07/11/2022 12:00 PM EDT Narrative 07/11/2022 12:00 PM EDT PERFORMED AT [facility] LOCATION:[id number] Procedure Note CONVERSION, GENERIC - 08/29/2022 PERFORMED AT [facility] LOCATION:[id number] Authorizing ProviderResult TypeResult StatusGerardkristine Velazquez Hemshirley PAENDOSCOPY PROCEDURE ORDERABLESFinal Result from Last 3 Months or Most Recently Relevant to Health Maintenance Insurance Care Teams Team MemberRelationshipSpecialtyStart DateEnd Date Chavo Benavides MD [address] [facility] [address] [place] [address] PCP - GeneralInternal Medicine10/22/22 Chavo Benavides MD [address] [place] [address] PCP - Medical [facility]04/14/2511
--- OUTSIDE RECORDS SUMMARY | 2025-02-07 12:20 | XMS_ITS | Patient Health Record ---
Author Organization [facility] Servic es Address [address] [address] [facility]Nav[address] [facility] [place] [address] Support Name Relationship Address Phone KATHY OROPEZA Emergency Contact [address] [place] [address] BINDU OROPEZA Guarantor Unknown [phone] Reason For Referral No Information Medications Medication SIG (Take, Route, Frequency, Duration) Notes Start Date End Date Status Chlorhexidine Gluconate 0.12 % Solution as directed Mouth/Throat twice a day (bid) 3Active Plan Of Treatment No Information Insurance Providers Payer Name Payer Address Payer Phone Subscriber Number Group Number Insured Name Patient Relationship to Insured Coverage Start Date Coverage End Date [employer] P[employer] [address] [place] [address] [id number] BINDU OROPEZA Self - patient is the insured 3
== END 2025-02-07 12:17 | disposition home or self-care (01) ==
LOC: LAB 12:17 → RAD 12:18
PROVIDERS: PCP Internal Medicine; Visit Provider Internal Medicine
DX: R05.3 Chronic cough (principal)
CPT/HCPCS: 71046